=== PATIENT | female | born 1985 | race Caucasian/White ===

== ENCOUNTER 2019-05-09 11:45 | Outpatient (CLI) | payer OTHER, SELFPAY ==
[2019-05-09 13:17] LABS: Vitamin D 25 Hydroxy 73.3 ng/mL
== END 2019-05-09 11:46 | disposition home or self-care (01) ==
PROVIDERS: PCP Family Medicine; Visit Provider Nurse Practitioner
DX: E55.9 Vitamin D deficiency, unspecified (principal)
CPT/HCPCS: 36415; 82306

== ENCOUNTER 2019-05-13 10:46 | Emergency (ER) | payer OTHER, SELFPAY ==
[2019-05-13 10:57] VITALS: BP 105/67; PULSE 105; RESP 20; TEMP 36.4; O2SAT 100
--- NOTE | 2019-05-13 11:36 | ED.URI ---
HPI - URI/Sore Throat General Chief Complaint: Upper Respiratory Infection Stated Complaint: vieira/fever/sore throat/neck pain/back pain Source: patient Mode of arrival: ambulatory Limitations: no limitations History of Present Illness HPI Narrative: 33-year-old female presents to urgent care with complaints of headache, sore throat, right ear popping, body aches, chills and fever since yesterday. 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 Patient has been taking [id number] Aleve and ibuprofen with minimal relief. Patient denies nausea, vomiting, diarrhea, shortness breath or wheezing. Patient denies recent travel. Patient is non-smoker. MD elicited complaint: fever, rhinorrhea and nasal congestion Onset (ago): day(s) (1) Able to tolerate fluids by mouth: Yes Exacerbating factors: nothing Context: sick contacts Related Data Home Medications Medication Instructions Recorded Confirmed bupropion HCl 300 mg 24 hr tablet, 300 mg PO QAM 01/09/19 05/13/19 extended release duloxetine 60 mg capsule,delayed 60 mg PO DAILY 01/09/19 05/13/19 release spironolactone 100 mg tablet 100 mg PO DAILY 01/09/19 05/13/19 progesterone micronized 200 mg PO DAILY 05/13/19 05/13/19 Allergies Allergy/AdvReac Type Severity Reaction Status Date / Time hydrocodone Allergy Mild ITCHY Unverified 04/14/19 10:38 Review of Systems Review of Systems: All systems reviewed & are unremarkable except as noted in HPI and below Constitutional: Constitutional: Reports chills, Denies fatigue, Reports fever(s) and Denies weakness ENT: Denies dysphagia, Denies dizziness, Denies epistaxis and Denies sore throat Cardiovascular: Cardiovascular: Denies chest pain, Denies rapid heart rate, Denies radiating jaw, neck or arm pain and Denies slow heart rate Respiratory: Respiratory: Denies chest congestion, Denies cough, Denies dyspnea and Denies wheezing Gastrointestinal: Gastrointestinal: Denies abdominal pain, Denies constipation, Denies diarrhea, Denies nausea and Denies vomiting Neurologic: Denies vertigo, Denies dizziness, Denies syncope and Denies focal weakness [facility] Family History Family History Sibling Depression Mother Family history of malignant neoplasm of breast in first degree relative Father Family history of malignant melanoma Other Carcinoma of colon Cerebrovascular accident Social History Social History Smoking status: Never smoker Second hand tobacco smoke exposure: No Alcohol intake: never Substance use: never Substance use type: does not use Gender identity (if verbalized by the patient): Female Exam Const: General: healthy appearing, no acute distress and alert Orientation/consciousness: patient oriented x3 Limitations: no limitations HENMT: Ears: external ears normal and TM's normal bilaterally General nose exam: Normal nares present Face and sinus: sinuses nontender Mouth: Yes Normal oral and palatal mucosa present and Yes moist mucous membranes Throat: posterior oropharynx normal and uvula midline Neck: Neck: normal visual inspection, no lymphadenopathy, meningismus present and no lymphadenopathy noted Resp: Effort & Inspection: normal respiratory effort, not labored and not tachypneic Auscultation: clear to auscultation bilaterally Cardio: Rate: regular rate Rhythm: regular rhythm Heart sounds: no murmurs Skin: General skin exam: normal color, no jaundice and no pallor Rashes: no rashes Neuro: General: patient oriented x3 and moves all extremities Extrem: General: normal to inspection Psych: Appearance: grossly normal Mental Status: mental status grossly normal Affect: normal affect Attitude: cooperative Thought content: Yes Normal thought content present Course Vital Signs Vital signs: Vital
== END 2019-05-13 11:44 | disposition home or self-care (01) ==
PROVIDERS: Emergency Provider Nurse Practitioner Family; PCP Family Medicine
DX: J11.1 Influenza due to unidentified influenza virus with other respiratory manifestations (principal); N60.12 Diffuse cystic mastopathy of left breast; N60.11 Diffuse cystic mastopathy of right breast
CPT/HCPCS: 87081; 87804; 87880; 99213; G0463

== ENCOUNTER 2019-07-03 08:03 | Outpatient (CLI) | payer OTHER, SELFPAY ==
--- NOTE | ~2019-07-03 | US_ITS ---
EXAMINATION: US abdomen complete DATE: 07/03/2019 08:38 INDICATION: Left lower abdominal pain. Blood in stool. TECHNIQUE: Multiple grayscale and Doppler ultrasound images of the abdomen were obtained. COMPARISON: CT abdomen and pelvis 08/08/2017 FINDINGS: Abdominal aorta is normal in caliber. Inferior vena cava is normal. The visualized portions of the head, body, and tail of the pancreas are normal. The liver is normal without focal lesion. Th ere is normal flow in main portal vein. The gallbladder is normal in size and contains sludge. No gal lstones or gallbladder wall thickening. There was no sonographic Minor sign. The common duct is norm al and measures 2 mm. The kidneys are normal in size. The spleen is normal in size. Calcifications in the spleen are consistent with old granulomatous disease. IMPRESSION: 1. Gallbladder sludge. No evidence of acute cholecystitis. Reviewed, dictated and finalized at location A.
== END 2019-07-03 08:04 | disposition home or self-care (01) ==
PROVIDERS: PCP Family Medicine; Visit Provider Family Medicine
DX: R10.9 Unspecified abdominal pain (principal); K83.9 Disease of biliary tract, unspecified
CPT/HCPCS: 76700

== ENCOUNTER 2019-10-07 01:25 | Outpatient (CLI) | payer OTHER, SELFPAY ==
[2019-10-07 19:35] LABS: SARS-CoV-2 RNA PCR Negative
== END 2019-10-07 01:26 | disposition home or self-care (01) ==
LOC: ANHCOVIDDT 01:25
PROVIDERS: PCP Family Medicine; Visit Provider Internal Medicine Gastroenterology
DX: Z01.812 Encounter for preprocedural laboratory examination (principal); Z11.59 Encounter for screening for other viral diseases
CPT/HCPCS: 87635; C9803; U0003

== ENCOUNTER 2019-10-09 01:45 | Day surgery (SDC) | payer OTHER, SELFPAY ==
[2019-10-06 10:45] VITALS: BMI 23.1
--- NOTE | 2019-10-09 09:53 | PM.HPGS ---
History of Present Illness History of Present Illness Consent: Risks, benefits, and alternatives have been discussed and questions answered. Patient agrees to proceed with procedure. Chief complaint: change in bowel habits, rectal bleed Narrative: Lucy Hermosillo is a 34 year old W female undergoing colonoscopy secondary to change in bowel habits loose stools mucus and blood in her stools. Patient has a history of infectious colitis. Previous colonoscopy 4 years ago. This was normal. [facility] Social History Social History (Updated 05/21/19 @ 11:07 by Lanie Fairchild) Smoking status: Never smoker Second hand tobacco smoke exposure: No Alcohol intake: never Substance use: never Substance use type: does not use Gender identity (if verbalized by the patient): Female Meds Home Medications and Allergies Home Medications Medication Instructions Recorded Confirmed Type bupropion HCl 300 mg 24 hr tablet, 300 mg PO QAM 01/09/19 10/06/19 History extended release duloxetine 60 mg capsule,delayed 60 mg PO DAILY 01/09/19 10/06/19 History release spironolactone 100 mg tablet 100 mg PO DAILY 01/09/19 10/06/19 History hyoscyamine sulfate 0.125 mg PO PRN PRN 10/06/19 10/06/19 History lactobacillus combination no.8 3,000 mmu cells PO DAILY 10/06/19 10/06/19 History [Adult Probiotic] multivitamin 1 cap PO DAILY 10/06/19 10/06/19 History Allergies Allergy/AdvReac Type Severity Reaction Status Date / Time hydrocodone Allergy Mild ITCHY Verified 10/06/19 10:41 Exam Const: Orientation/consciousness: patient oriented x3 Resp: Auscultation: clear to auscultation bilaterally Cardio: Rate: regular rate Rhythm: regular rhythm Heart sounds: no murmurs GI: GI Palp: Yes Soft to palpation, No Tenderness to palpation present (GI), Yes No hepatosplenomegaly present and No Palpable mass present Auscultation: normal bowel sounds Neuro: General: patient oriented x3 and no focal motor deficits Extrem: General: no pedal edema Assessment and Plan Additional Plan Colonoscopy for evaluation of change in bowel pattern associated with mucus and blood in her stools.
[2019-10-09] MEDS: LACTATED RINGERS 1,000 ML 150 ML IV CONT (10:19)
[2019-10-09 10:21] VITALS: BP 113/68; PULSE 91; RESP 16; TEMP 37.3; O2SAT 100; BMI 21.7
--- NOTE | 2019-10-09 10:41 | WPDANESEPPF ---
Anes - Initial Pre Proc Eval Procedure: Operation Date: 10/09/19 10:30 Proposed Procedures p Colonoscopy - Tha Rahman MD Date/Time: 10/09/19 10:41 Surgeon: Tha Rahman MD Pre Op Diagnosis: change in bowel habits, rectal bleed Patient Data Age: 34 Gender: F Height: 5 ft 6 in Weight: 61 kg Last Vital Signs Temp 99.1 F 10/09/19 10:21 Pulse 91 10/09/19 10:21 Resp 16 10/09/19 10:21 BP 113/68 10/09/19 10:21 Pulse Ox 100 10/09/19 10:21 Allergies Allergy/AdvReac Type Severity Reaction Status Date / Time hydrocodone Allergy Mild ITCHY Verified 10/09/19 10:19 Home Medications Medication Instructions Recorded Confirmed Type bupropion HCl 300 mg 24 hr tablet, 300 mg PO QAM 01/09/19 10/06/19 History extended release duloxetine 60 mg capsule,delayed 60 mg PO DAILY 01/09/19 10/06/19 History release spironolactone 100 mg tablet 100 mg PO DAILY 01/09/19 10/06/19 History hyoscyamine sulfate 0.125 mg PO PRN PRN 10/06/19 10/06/19 History lactobacillus combination no.8 3,000 mmu cells PO DAILY 10/06/19 10/06/19 History [Adult Probiotic] multivitamin 1 cap PO DAILY 10/06/19 10/06/19 History Patient hx anesthesia problems: none Family hx anesthesia problems: none PMFSH Past Medical History Medical History (Updated 10/09/19 @ 10:40 by Morro Llamas MD) ADRIA (generalized anxiety disorder) Hypoglycemia MDD (major depressive disorder), recurrent, in partial remission Social History Social History (Updated 05/21/19 @ 11:07 by Lanie Fairchild) Smoking status: Never smoker Second hand tobacco smoke exposure: No Alcohol intake: never Substance use: never Substance use type: does not use Gender identity (if verbalized by the patient): Female Anes - Eval Final PreProcedure Day of Procedure 10/09/19 10:41 Patient weight: normal Heart: regular rate and rhythm Lungs: clear to auscultation Airway: Mallampati scale class II Neurological: alert and oriented Last oral intake: >/= 8 hours ASA classification: II Emergent: no Anesthetic plan: proceed Anesthesia type and monitoring: general GIVS and standard monitoring Informed Consent: The patient's anesthetic plan and its attendant risks and benefits were discussed with the patient/family/POA. Questions were solicited and answers provided to the satisfaction of the patient/family/POA.
[2019-10-09 11:20] VITALS: BP 81/50; PULSE 78; RESP 16; O2SAT 100
[2019-10-09 11:30] VITALS: BP 80/56; PULSE 78; RESP 15; O2SAT 100
[2019-10-09 11:40] VITALS: BP 87/57; PULSE 79; RESP 16; O2SAT 100
== END 2019-10-09 12:00 | disposition home or self-care (01) ==
PROVIDERS: PCP Family Medicine; Visit Provider Internal Medicine Gastroenterology
PROC: 0DJD8ZZ Inspection of Lower Intestinal Tract, Via Natural or Artificial Opening Endoscopic (ICD-10-PCS; CPT 45378; principal; 2019-10-09 10:30)
DX: K52.9 Noninfective gastroenteritis and colitis, unspecified (principal); F41.1 Generalized anxiety disorder; F33.41 Major depressive disorder, recurrent, in partial remission
CPT/HCPCS: 45380; 87635; 88305; J2704; J7120; U0003

== ENCOUNTER 2020-04-04 18:03 | Emergency (ER) | payer OTHER, SELFPAY ==
[2020-04-04 18:18] VITALS: BP 121/87; PULSE 100; RESP 16; TEMP 36.6; O2SAT 99
--- NOTE | 2020-04-04 18:31 | ED.BACK ---
HPI - Back Pain/Injury General Chief Complaint: Neck Pain/Injury Stated Complaint: neck strain Time Seen by Provider: 04/04/20 18:19 Source: patient and RN notes reviewed Mode of arrival: ambulatory Limitations: no limitations History of Present Illness HPI Narrative: Patient presents today complaining of right neck pain x5 days has been worsening since onset. Denies radiation of the pain, numbness or tingling in the extremities. Denies known injury or trauma. 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 Pain increases with any movement of the neck. Currently rates her pain 08/12 and has been using ibuprofen and heat without relief. MD elicited complaint: other (Neck pain) Related Data Home Medications Medication Instructions Recorded Confirmed bupropion HCl 300 mg 24 hr tablet, 300 mg PO QAM 01/09/19 10/06/19 extended release duloxetine 60 mg capsule,delayed 60 mg PO DAILY 01/09/19 10/06/19 release spironolactone 100 mg tablet 100 mg PO DAILY 01/09/19 10/06/19 norgestimate-ethinyl estradiol tablet 04/04/20 [Tri-Sprintec (28)] Allergies Allergy/AdvReac Type Severity Reaction Status Date / Time hydrocodone Allergy Mild ITCHY Verified 10/09/19 10:19 Review of Systems Review of Systems: Narrative: CONSTITUTIONAL: Denies body aches, fever, chills, or sweats. EYES: Denies visual changes, redness, or discharge. ENT: Denies rhinorrhea, congestion, sore throat, or otalgia. CARDIOVASCULAR: Denies chest pain, palpitations, or edema. RESPIRATORY: Denies cough or dyspnea. GASTROINTESTINAL: Denies abdominal pain, nausea, vomiting, or diarrhea. GENITOURINARY: Denies dysuria or hematuria. SKIN: Denies rash, itching, or wounds. MUSCULOSKELETAL: Denies back pain, joint pain, or myalgia.+ Neck pain NEUROLOGIC: Denies headache, numbness, tingling, or weakness. PSYCH: Denies depression or anxiety. [facility] Past Medical History Medical History (Updated 04/04/20 @ 18:37 by Toshia Reynoso, FUNERAL DIRECTOR AND EMBALMER, BC) ADRIA (generalized anxiety disorder) History of miscarriage Hypoglycemia MDD (major depressive disorder), recurrent, in partial remission Family History Family History Sibling Depression Mother Family history of malignant neoplasm of breast in first degree relative Father Family history of malignant melanoma Other Carcinoma of colon Cerebrovascular accident Social History Social History (Updated 05/21/19 @ 11:07 by Lanie Fairchild) Smoking status: Never smoker Second hand tobacco smoke exposure: No Alcohol intake: never Substance use: never Substance use type: does not use Gender identity (if verbalized by the patient): Female Comments At time of signature, I have reviewed and agree with nursing past medical, surgical, social and family history unless otherwise noted. Please see nursing chart for further information. There is no relevant family history pertinent to the presenting complaint Exam Narrative: Exam Narrative: GENERAL: Well-appearing, well-nourished, and in no acute distress. HEAD: Normocephalic, atraumatic. EYES: EOMI. No redness or drainage. Conjunctivae normal. ENT: Mucous membranes pink and moist. NECK: Tenderness to right upper paraspinal muscles. No spinal tenderness. Pain with any movement of the neck, worst pain with leftward gaze and left ear to shoulder. Sensation intact. Capillary refill normal. Radial pulses normal bilaterally. Handgrips equal and strong. Biceps equal and strong against resistance. CHEST: No respiratory distress. EXTREMITIES: Normal range of motion. No edema. SKIN: Warm, dry, no rash. Capillary refill normal. Normal skin turgor. NEURO: No focal deficits. Alert and oriented x3. Gait steady. PSYCH: Normal affect. No signs of depression or anxiety. Course Vital Signs Vital signs: Vital Signs T
[2020-04-04 18:39] VITALS: BP 121/87; PULSE 100; RESP 16; TEMP 36.6; O2SAT 99
== END 2020-04-04 18:41 | disposition home or self-care (01) ==
PROVIDERS: Emergency Provider Nurse Practitioner; PCP Family Medicine
DX: S16.1XXA Strain of muscle, fascia and tendon at neck level, initial encounter (principal); X58.XXXA Exposure to other specified factors, initial encounter; F41.9 Anxiety disorder, unspecified; F32.9 Major depressive disorder, single episode, unspecified
CPT/HCPCS: 99213; G0463

== ENCOUNTER 2020-07-05 16:28 | Emergency (ER) | payer OTHER, SELFPAY ==
[2020-07-05 16:35] VITALS: BP 102/68; PULSE 92; RESP 16; TEMP 36.9; O2SAT 99
--- NOTE | 2020-07-05 16:53 | ED.URI ---
HPI - URI/Sore Throat General Chief Complaint: Upper Respiratory Infection Stated Complaint: Sore Throat Time Seen by Provider: 07/05/20 16:53 Source: patient Mode of arrival: ambulatory Limitations: no limitations History of Present Illness HPI Narrative: Lucy Hermosillo is a 35 yo female with a PMH of depression, acne, [facility] with scratchy throat, muscle aches that started 3 days ago. Complains of increasing malaise no appetite; denies fever, no nausea vomiting diarrhea, no shortness of breath History of recurrent strep with no fever been general similar presentation. 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 EYES: Denies visual changes, redness, discharge. ENT: Denies rhinorrhea, congestion, has sore throat, otalgia. Has myalgias-malaise CARDIOVASCULAR: Denies chest pain, palpitations, edema. RESPIRATORY: Denies dyspnea, wheezing, cough GASTROINTESTINAL: Denies abdominal pain, nausea, vomiting, diarrhea. GENITOURINARY: Denies dysuria, hematuria, abnormal discharge SKIN: Denies rash or itching. NEUROLOGIC: Denies numbness, or focal weakness. PSYCHIATRIC: Denies anxiety or depression. [facility] Past Medical History Medical History ADRIA (generalized anxiety disorder) History of miscarriage Hypoglycemia MDD (major depressive disorder), recurrent, in partial remission Family History Family History Sibling Depression Mother Family history of malignant neoplasm of breast in first degree relative Father Family history of malignant melanoma Other Carcinoma of colon Cerebrovascular accident Social History Social History Smoking status: Never smoker Second hand tobacco smoke exposure: No Alcohol intake: never Substance use: never Substance use type: does not use Gender identity (if verbalized by the patient): Female Comments At time of signature, I agree with nursing past medical, surgical, social and family history. There is no relevant family history pertinent to the presenting complaint. Exam Narrative: Exam Narrative: GENERAL: This is a well-nourished, well-developed patient, in mild distress. Patient complaining of malaise HEAD: normocephalic, atraumatic. EYES: PERRL. Sclera clear/white. Vision is grossly intact. EARS: External ears normal, Hearing grossly intact. NOSE: External nose normal without nasal discharge, nares without redness, no rhinorrhea. THROAT: Mucous membranes moist, posterior pharynx erythema NECK: Neck supple, non-tender CARDIOVASCULAR: Regular rate and rhythm without murmurs, gallops, or rubs. RESPIRATORY: Clear to auscultation. Breath sounds equal bilaterally. No wheezes, rales, or rhonchi. GASTROINTESTINAL: Abdomen soft, SKIN: warm, intact with no suspicious lesions or rash, good texture and turgor. NEURO: awake, alert, and oriented to person, place and time. There were no obvious focal neurologic abnormalities. Steady gait EXTREMITIES: Normal range of motion. BACK: Nontender without deformity Course Course Emergency Course: [facility] with complaints of scratchy throat x3 days and malaise that is increasing; has been afebrile but is not wanting to eat Strep test negative Rapid covid negative Started on penicillin and told to rest for the next 2 to 3 days push fluids-discussed infection control since works with [employer]
== END 2020-07-05 17:25 | disposition home or self-care (01) ==
PROVIDERS: Emergency Provider Nurse Practitioner; PCP Family Medicine
DX: J02.9 Acute pharyngitis, unspecified (principal); Z20.822 Contact with and (suspected) exposure to COVID-19
CPT/HCPCS: 87081; 87426; 87880; 99213; C9803; G0463

== ENCOUNTER 2020-10-12 13:25 | Outpatient (CLI) | payer OTHER, SELFPAY ==
--- NOTE | ~2020-10-12 | MMUS_ITS ---
EXAMINATION: MM diagnostic quynh BI w bruce, US breast BI complete HISTORY: Tingling of the nipples for 3 weeks TECHNIQUE: Additional 3-D tomosynthesis images of the breasts were performed and synthetic 2-D images were generated. CAD analysis was submitted and interpreted. High resolution complete bilateral breas t ultrasound was performed. COMPARISON: 05/19/2014 BREAST PARENCHYMAL COMPOSITION: The breasts are extremely dense, which lowers the sensitivity of mamm ography. FINDINGS: MAMMOGRAPHIC FINDINGS: There is a focal asymmetry laterally in the right breast on CC view, not confirmed on MLO or mediolat eral views. No mammographic evidence for malignancy in the left breast. ULTRASOUND: Right breast ultrasound: At 11:00, 6 cm from the nipple, there is a 7 mm intramammary lymph node. No suspicious masses to suggest malignancy. Left breast ultrasound: At 9:00, 2 cm from the nipple, there is an oval hypoechoic mass measuring 1 c m maximum dimension, likely a complicated cyst or benign intramammary lymph node. IMPRESSION: 1. Probable benign left breast mass at 9:00, 2 cm from the nipple. No evidence for malignancy in the right breast. 2. Recommend 6 month follow-up Limited left breast ultrasound. BI-RADS category 3, probably benign findings. Reviewed, dictated and finalized at location A. IMPRESSION: 1. Probable benign left breast mass at 9:00, 2 cm from the nipple. No evidence for malignancy in the right breast. 2. Recommend 6 month follow-up Limited left breast ultrasound. BI-RADS category 3, probably benign findings.
== END 2020-10-12 13:26 | disposition home or self-care (01) ==
PROVIDERS: PCP Family Medicine; Visit Provider Nurse Practitioner
DX: N64.4 Mastodynia (principal); R92.8 Other abnormal and inconclusive findings on diagnostic imaging of breast
CPT/HCPCS: 76641; 77062; 77066; G0279

== ENCOUNTER 2020-10-26 13:24 | Outpatient (CLI) | payer OTHER, SELFPAY ==
--- NOTE | ~2020-10-26 | XR_ITS ---
XR thoracic spine 2V DATE: 10/26/2020 13:50 INDICATION: Neck and back pain for 2 months TECHNIQUE: AP, lateral, swimmer views COMPARISON: None FINDINGS: This is an incomplete examination, not including lower thoracic vertebral body on the later al view. There is mild upper thoracic levoscoliosis. There is minimal dextro scoliosis of the lower thoracic s pine. No fracture or dislocation or bone destruction. The thoracic pedicles are intact. IMPRESSION: Incomplete examination. The lower thoracic spine is not included on the lateral view. Reviewed, dictated and finalized at location A.
--- NOTE | ~2020-10-26 | XR_ITS ---
XR_[id number]_CR DATE: 10/26/2020 13:51 INDICATION: Neck pain TECHNIQUE: AP, open-mouth, lateral views COMPARISON: None FINDINGS: There is mild dextro scoliosis of the cervical and upper thoracic spine. C1 and C2 are norm ally aligned and the odontoid process is intact. No fracture or dislocation or locked facet or prever tebral soft tissue swelling. Cervical interspaces appear relatively well preserved with exception of slight loss of height and anterior spurring at C5-6. IMPRESSION: Mild dextro scoliosis Mild degenerative disc disease at C5-6 Reviewed, dictated and finalized at Location [facility]. Reviewed, dictated and finalized at location A.
== END 2020-10-26 13:25 | disposition home or self-care (01) ==
LOC: ANHIMG 13:30
PROVIDERS: PCP Family Medicine; Visit Provider Physician Assistant
DX: K58.2 Mixed irritable bowel syndrome (principal); M41.82 Other forms of scoliosis, cervical region; M50.322 Other cervical disc degeneration at C5-C6 level
CPT/HCPCS: 72040; 72070

== ENCOUNTER 2020-11-01 19:20 | Emergency (ER) | payer OTHER, SELFPAY ==
[2020-11-01 19:29] VITALS: BP 109/72; PULSE 74; RESP 18; TEMP 36.2; O2SAT 100
--- NOTE | 2020-11-01 19:38 | ED.URI ---
HPI - URI/Sore Throat General Chief Complaint: Upper Respiratory Infection Stated Complaint: Shortness of breathe Time Seen by Provider: 11/01/20 19:38 Source: patient Mode of arrival: ambulatory Limitations: no limitations History of Present Illness HPI Narrative: Lucy Toure is a 35 yo female with depression anxiety and ulcerative colitis, she was trying to talk over noise at a volleyball game and the mask and developed a choking cough; became anxietious and became shortness of breath because she thought she could not catch her breath . 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 trying to keep masks on and she wants to make sure that she is also negative-no symptoms Related Data Home Medications Medication Instructions Recorded Confirmed duloxetine 60 mg capsule,delayed 60 mg PO DAILY 01/09/19 10/21/20 release spironolactone 100 mg tablet 100 mg PO DAILY 01/09/19 10/21/20 hyoscyamine sulfate 0.125 mg tablet 0.125 mg PO QID 10/28/20 cyclobenzaprine 10 mg PO HS PRN 11/01/20 11/01/20 Allergies Allergy/AdvReac Type Severity Reaction Status Date / Time hydrocodone Allergy Mild ITCHY Verified 11/01/20 20:05 Review of Systems Review of Systems: CONSTITUTIONAL: Denies fever, chills, sweats. Bout of coughing, shortness of breath EYES: Denies visual changes, redness, discharge. ENT: Denies rhinorrhea, congestion, sore throat, otalgia. CARDIOVASCULAR: Denies chest pain, palpitations, edema. RESPIRATORY: Denies dyspnea, wheezing, had cough GASTROINTESTINAL: Denies abdominal pain, nausea, vomiting, diarrhea. GENITOURINARY: Denies dysuria, hematuria, abnormal discharge SKIN: Denies rash or itching. NEUROLOGIC: Denies numbness, or focal weakness. PSYCHIATRIC: Denies anxiety or depression. [facility] Past Medical History Medical History ADRIA (generalized anxiety disorder) History of miscarriage Hypoglycemia MDD (major depressive disorder), recurrent, in partial remission Family History Family History Sibling Depression Mother Family history of malignant neoplasm of breast in first degree relative Father Family history of malignant melanoma Other Carcinoma of colon Cerebrovascular accident Social History Social History Second hand tobacco smoke exposure: No Alcohol intake: never Substance use: never Substance use type: does not use Gender identity (if verbalized by the patient): Female Comments At time of signature, I agree with nursing past medical, surgical, social and family history. There is no relevant family history pertinent to the presenting complaint. Exam Narrative: GENERAL: This is a well-nourished, well-developed patient, in mild distress. HEAD: normocephalic, atraumatic. EYES:Sclera clear/white. Vision is grossly intact. EARS: External ears normal, auditory canals clear and without drainage, TMs normal without perforation. Hearing grossly intact. NOSE: External nose normal without nasal discharge, nares without redness, no rhinorrhea. THROAT: Mucous membranes moist, posterior pharynx pink no exudate NECK: Neck supple, non-tender CARDIOVASCULAR: Regular rate and rhythm without murmurs, gallops, or rubs. RESPIRATORY: Clear to auscultation. Breath sounds equal bilaterally. No wheezes, rales, or rhonchi. GASTROINTESTINAL: Abdomen soft, non-tender, SKIN: warm, intact with no suspicious lesions or rash, good texture and turgor. NEURO: awake, alert, and oriented to person, place and time. There were no obvious focal neurologic abnorm
== END 2020-11-01 20:08 | disposition home or self-care (01) ==
PROVIDERS: Emergency Provider Nurse Practitioner; PCP Family Medicine
DX: J98.01 Acute bronchospasm (principal); Z20.822 Contact with and (suspected) exposure to COVID-19
CPT/HCPCS: 87426; 99213; C9803; G0463

== ENCOUNTER 2021-02-28 10:53 | Outpatient (CLI) | payer OTHER, SELFPAY ==
[2021-02-28 11:19] LABS: Hematocrit 39.6 % (37.0-47.0); Hemoglobin 13.7 g/dL (12.0-15.0); Mean Corpuscular HGB Conc 34.6 g/dl (32-36); Mean Corpuscular Volume 89.6 fl (80-100); Mean Platelet Volume 9.2 fl (7.4-10.4); Platelet Count Result 265 k/mm3 (150-375); Red Blood Count 4.42 M/mm3 (4.2-5.4); Red Cell Distribution Width 12.1 % (11.5-14.5); White Blood Count 5.2 K/mm3 (4.5-10.0)
[2021-02-28 11:30] LABS: Alanine Aminotransferase 14 U/L (4-35); Albumin Level 4.3 g/dL (3.5-5.1); Alkaline Phosphatase 60 U/L (38-126); Anion Gap 7 mmol/L (8-16); Aspartate Amino Transferase 22 U/L (14-36); Bilirubin,Total 0.5 mg/dL (0.2-1.3); Blood Urea Nitrogen 18 mg/dL (7-17); CRP < 0.5 mg/dL (<1.0); Calcium 9.4 mg/dL (8.4-10.2); Carbon Dioxide 28 mmol/L (22-30); Chloride 104 mmol/L (98-107); Estimated Glomerular Filt Rate > 60; Glucose 89 mg/dL (65-110); Potassium 3.9 mmol/L (3.4-5.0); Sodium 139 mmol/L (137-145)
[2021-02-28 13:07] LABS: Erythrocyte Sedimentation Rate 7 mm/hr (0-20)
[2021-03-02 18:35] LABS: Tissue Transglutaminase IgA Ab <1.0 U/mL (<15.0)
[2021-03-03 08:39] LABS: Tissue Transglutaminase IgG Ab <1.0 U/mL (<15.0)
== END 2021-02-28 10:54 | disposition home or self-care (01) ==
PROVIDERS: PCP Family Medicine; Visit Provider Internal Medicine Gastroenterology
DX: K52.9 Noninfective gastroenteritis and colitis, unspecified (principal); R14.0 Abdominal distension (gaseous)
CPT/HCPCS: 36415; 80053; 83516; 85027; 85652; 86140

== ENCOUNTER 2021-05-03 11:26 | Outpatient (CLI) | payer OTHER, SELFPAY ==
--- NOTE | ~2021-05-03 | US_ITS ---
EXAMINATION: US breast LT limited HISTORY: Six-month follow-up for probably benign left breast TECHNIQUE: Limited left breast ultrasound is performed. FINDINGS: There is an 11 mm x 5 mm described, parallel, hypoechoic mass at the 9:00 location 2 cm fro m nipple with no posterior features or internal vascularity. The mass appears stable since the prior examination. IMPRESSION: Probably benign left breast mass. Follow-up targeted left breast ultrasound in six months is recommen ded. BI-RADS category 3, probably benign findings. Reviewed, dictated and finalized at location A. [employer] MANAGER IMPRESSION: Probably benign left breast mass. Follow-up targeted left breast ultrasound in six months is recommended. BI-RADS category 3, probably benign findings.
== END 2021-05-03 11:27 | disposition home or self-care (01) ==
LOC: ANHIMG 11:30
PROVIDERS: PCP Family Medicine; Visit Provider Obstetrics & Gynecology Gynecology
DX: R92.8 Other abnormal and inconclusive findings on diagnostic imaging of breast (principal)
CPT/HCPCS: 76642

== ENCOUNTER 2021-06-07 15:47 | Outpatient (CLI) | payer OTHER, SELFPAY ==
[2021-06-07 16:24] LABS: Hematocrit 38.7 % (37.0-47.0); Hemoglobin 13.2 g/dL (12.0-15.0); Mean Corpuscular HGB Conc 34.1 g/dl (32-36); Mean Corpuscular Hemoglobin 31.1 pg (26-34); Mean Corpuscular Volume 91.3 fl (80-100); Mean Platelet Volume 9.8 fl (7.4-10.4); Platelet Count Result 243 k/mm3 (150-375); Red Blood Count 4.24 M/mm3 (4.2-5.4); Red Cell Distribution Width 12.6 % (11.5-14.5); White Blood Count 6.2 K/mm3 (4.5-10.0)
[2021-06-07 16:32] LABS: Hemoglobin A1C 4.7 % (<5.7)
[2021-06-07 16:59] LABS: Thyroid Stimulating Hormone 0.832 uIU/mL (0.465-4.680); Vitamin D 25 Hydroxy 83.5 ng/mL
[2021-06-09 09:31] LABS: Free T4 Free Thyroxine 0.84 ng/mL (0.78-2.19)
== END 2021-06-07 15:48 | disposition home or self-care (01) ==
LOC: ANHLAB 15:50
PROVIDERS: PCP Family Medicine; Visit Provider Nurse Practitioner
DX: R53.83 Other fatigue (principal)
CPT/HCPCS: 36415; 82306; 82607; 83036; 84436; 84439; 84443; 85027

== ENCOUNTER 2021-07-09 11:06 | Emergency (ER) | payer OTHER, SELFPAY ==
[2021-07-09 11:48] VITALS: BP 107/74; PULSE 87; RESP 18; TEMP 36.6; O2SAT 100
--- NOTE | 2021-07-09 12:23 | ED.EYEPROB ---
HPI - Eye Problem General Chief complaint: Eye Problems Stated complaint: possible pink eye in right eye Time Seen by Provider: 07/09/21 12:10 Source: patient Mode of arrival: ambulatory Limitations: no limitations History of Present Illness HPI Narrative: Lucy Hermosillo is a 36 yo female with IBS/UC, depression, [facility] with right eye swelling and tearing and discharge in corner of eye this morning. 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 She wore her glasses yesterday but this morning she had discharge that she decided to come in Related Data Home Medications Medication Instructions Recorded Confirmed duloxetine 60 mg capsule,delayed 60 mg PO DAILY 01/09/19 07/09/21 release spironolactone 100 mg tablet 100 mg PO DAILY 01/09/19 07/09/21 norethindrone-e.estradiol-iron [Lo 1 tablet PO DAILY 07/09/21 07/09/21 Loestrin Fe] Allergies Allergy/AdvReac Type Severity Reaction Status Date / Time hydrocodone Allergy Mild ITCHY Verified 07/09/21 11:57 Review of Systems Review of Systems: CONSTITUTIONAL: Denies fever, chills, sweats. EYES: Denies visual changes, right eye redness with discharge. ENT: Denies rhinorrhea, congestion, sore throat, otalgia. CARDIOVASCULAR: Denies chest pain, palpitations, edema. RESPIRATORY: Denies dyspnea, wheezing, cough GASTROINTESTINAL: Denies abdominal pain, nausea, vomiting, diarrhea. GENITOURINARY: Denies dysuria, hematuria, abnormal discharge SKIN: Denies rash or itching. NEUROLOGIC: Denies numbness, or focal weakness. PSYCHIATRIC: Denies anxiety or depression. [facility] Past Medical History Medical History Bloating ADRIA (generalized anxiety disorder) History of miscarriage Hypoglycemia Irritable bowel syndrome with both constipation and diarrhea MDD (major depressive disorder), recurrent, in partial remission Family History Family History Sibling Depression Mother Family history of malignant neoplasm of breast in first degree relative Father Family history of malignant melanoma Other Carcinoma of colon Cerebrovascular accident Social History Social History Second hand tobacco smoke exposure: No Alcohol intake: never Substance use: never Substance use type: does not use Gender identity (if verbalized by the patient): Female Comments At time of signature, I agree with nursing past medical, surgical, social and family history. There is no relevant family history pertinent to the presenting complaint. Exam Narrative: GENERAL: This is a well-nourished, well-developed patient, in mild distress. HEAD: normocephalic, atraumatic. EYES: Sclera clear/injected on right. Vision is grossly intact. Right eye is mildly edematous particularly upper lid and watery EARS: External ears normal, auditory canals clear and without drainage, TMs normal without perforation. Hearing grossly intact. NOSE: External nose normal without nasal discharge, nares without redness, no rhinorrhea. THROAT: Mucous membranes moist, posterior pharynx mild erythema NECK: Neck supple, non-tender CARDIOVASCULAR: Regular rate and rhythm without murmurs, gallops, or rubs. RESPIRATORY: Clear to auscultation. Breath sounds equal bilaterally. No wheezes, rales, or rhonchi. GASTROINTESTINAL: Abdomen soft, SKIN: warm, intact with no suspicious lesions or rash, good texture and turgor. NEURO: awake, alert, and oriented to person, place and time. There were no obvious focal neurologic abnormalities. Steady gait EXTREMITIES: Normal range of motion. BACK: Nontender without deformity Course Course Emergency Course: Patient comes with right thigh swelling and watery with discharge this morning that initially started on Started on tobramycin e
== END 2021-07-09 12:31 | disposition home or self-care (01) ==
PROVIDERS: Emergency Provider Nurse Practitioner; PCP Family Medicine
DX: H10.9 Unspecified conjunctivitis (principal)
CPT/HCPCS: 99213; G0463

== ENCOUNTER 2021-10-15 08:14 | Emergency (ER) | payer OTHER, SELFPAY ==
--- NOTE | 2021-10-15 08:31 | ED.SKABFB ---
HPI - Skin/Abscess/Foreign Bdy General Chief complaint: Skin/Abscess/Foreign Body Stated complaint: Tick bites Time Seen by Provider: 10/15/21 08:40 History of Present Illness HPI narrative: Lucy Hermosillo is a 36 yo female with UC, anxiety, acne, who comes with multiple bites of her legs and abdomen. She [place] with her family and has taken doxycycline last month for an actual tick bite with a bull's-eye rash. These multiple bites are all very pruritic and cover her feet legs and lower abdomen Related Data Home Medications Medication Instructions Recorded Confirmed duloxetine 60 mg capsule,delayed 60 mg PO DAILY 01/09/19 10/15/21 release (Cymbalta) spironolactone 100 mg tablet 100 mg PO DAILY 01/09/19 10/15/21 Allergies Allergy/AdvReac Type Severity Reaction Status Date / Time hydrocodone Allergy Mild ITCHY Verified 10/15/21 08:26 Review of Systems Review of Systems: CONSTITUTIONAL: Denies fever, chills, sweats. EYES: Denies visual changes, redness, discharge. ENT: Denies rhinorrhea, congestion, sore throat, otalgia. CARDIOVASCULAR: Denies chest pain, palpitations, edema. RESPIRATORY: Denies dyspnea, wheezing, cough GASTROINTESTINAL: Denies abdominal pain, nausea, vomiting, diarrhea. GENITOURINARY: Denies dysuria, hematuria, abnormal discharge SKIN: Pruritic insect bites of the feet legs and lower abdomen and back NEUROLOGIC: Denies numbness, or focal weakness. PSYCHIATRIC: Denies anxiety or depression. [facility] Past Medical History Medical History Bloating ADRIA (generalized anxiety disorder) History of miscarriage Hypoglycemia Irritable bowel syndrome with both constipation and diarrhea MDD (major depressive disorder), recurrent, in partial remission Family History Family History Sibling Depression Mother Family history of malignant neoplasm of breast in first degree relative Father Family history of malignant melanoma Other Carcinoma of colon Cerebrovascular accident Social History Social History Second hand tobacco smoke exposure: No Alcohol intake: never Substance use: never Substance use type: does not use Gender identity (if verbalized by the patient): Female Exam Narrative: GENERAL: This is a well-nourished, well-developed patient, in mild distress. HEAD: normocephalic, atraumatic. EYES: Sclera clear/white. Vision is grossly intact. EARS: External ears normal, . Hearing grossly intact. NOSE: External nose normal without nasal discharge, nares without redness, no rhinorrhea. THROAT: Mucous membranes moist, NECK: Neck supple, CARDIOVASCULAR: Regular rate and rhythm without murmurs, gallops, or rubs. RESPIRATORY: Clear to auscultation. Breath sounds equal bilaterally. No wheezes, rales, or rhonchi. GASTROINTESTINAL: Not performed SKIN: warm, intact with pruritic lesions on feet legs lower abdomen lower back NEURO: awake, alert, and oriented to person, place and time. There were no obvious focal neurologic abnormalities. Steady gait EXTREMITIES: Normal range of motion. BACK: Nontender without deformity Course Course Emergency Course: Patient comes with bites from outdoor activity a week ago that is very pruritic Prednisone 60 mg here now Started on taper pack, Pepcid, Benadryl Level of Care: Express Care Visit Vital Signs Vital signs: Vital Signs Temperature 97.5 F L 10/15/21 08:33 Pulse Rate 86 10/15/21 08:33 Respiratory Rate 18 10/15/21 08:33 Blood Pressure 103/75 10/15/21 08:33 Pulse Oximetry 100 10/15/21 08:33 Oxygen Delivery Room Air 10/15/21 08:33 Temperature 97.5 F L 10/15/21 08:33 Pulse Rate 86 10/15/21 08:33 Respiratory Rate 18 10/15/21 08:33 Blood Pressure 103/75 10/15/21 08:33 Pulse Oximetry 100 10/15/21 08:33 Oxygen Delivery
[2021-10-15 08:33] VITALS: BP 103/75; PULSE 86; RESP 18; TEMP 36.4; O2SAT 100
[2021-10-15] MEDS: predniSONE 20 MG TABLET 60 MG PO (08:56)
== END 2021-10-15 09:15 | disposition home or self-care (01) ==
PROVIDERS: Emergency Provider Nurse Practitioner; PCP Family Medicine
DX: S90.862A Insect bite (nonvenomous), left foot, initial encounter (principal); S90.861A Insect bite (nonvenomous), right foot, initial encounter; S80.862A Insect bite (nonvenomous), left lower leg, initial encounter; S80.861A Insect bite (nonvenomous), right lower leg, initial encounter; S30.861A Insect bite (nonvenomous) of abdominal wall, initial encounter; S20.469A Insect bite (nonvenomous) of unspecified back wall of thorax, initial encounter; W57.XXXA Bitten or stung by nonvenomous insect and other nonvenomous arthropods, initial encounter; F41.1 Generalized anxiety disorder; F33.8 Other recurrent depressive disorders
CPT/HCPCS: 99213; G0463; J7512

== ENCOUNTER 2021-11-04 12:43 | Outpatient (CLI) | payer OTHER, SELFPAY ==
--- NOTE | ~2021-11-04 | US_ITS ---
EXAMINATION: US breast LT limited HISTORY: Six-month follow-up for probably benign left breast masses TECHNIQUE: Limited left breast ultrasound was performed. COMPARISON: 10/12/2020, 05/03/2021 FINDINGS: There is a 9 mm x 4 mm oval hypoechoic mass with no posterior features or internal vascular ity at the 9:00 location 2 cm from the nipple which appears to be a confluence up to adjacent previou sly described masses. There has been no suspicious interval change. IMPRESSION: Stable, probably benign left breast mass. Given one year of interval stability, follow-up targeted le ft breast ultrasound in 12 months is recommended. Of note, patient is due for bilateral screening quynh mography. BI-RADS category 3, probably benign findings. Reviewed, dictated and finalized at location A. IMPRESSION: Stable, probably benign left breast mass. Given one year of interval stability, follow-up targeted left breast ultrasound in 12 months is recommended. Of note , patient is due for bilateral screening mammography. BI-RADS category 3, probably benign findings.
== END 2021-11-04 12:44 | disposition home or self-care (01) ==
PROVIDERS: PCP Family Medicine; Visit Provider Obstetrics & Gynecology Gynecology
DX: N63.20 Unspecified lump in the left breast, unspecified quadrant (principal); R92.8 Other abnormal and inconclusive findings on diagnostic imaging of breast
CPT/HCPCS: 76642

== ENCOUNTER → 2022-01-24 07:44 | Outpatient (CLI) | payer OTHER, SELFPAY ==
--- NOTE | ~2022-01-24 | MM_ITS ---
EXAMINATION: MM screening quynh BI w bruce HISTORY: Screening mammogram TECHNIQUE: Craniocaudal and mediolateral oblique 3-D tomosynthesis images were obtained and synthetic 2-D images were generated. CAD analysis was submitted and interpreted. COMPARISON: 11/04/2021, 05/03/2021 limited left breast ultrasound 10/12/2020 bilateral diagnostic mammography and complete bilateral breast ultrasound 04/24/2015 bilateral complete ultrasound 05/19/2014 bilateral screening mammogram BREAST PARENCHYMAL COMPOSITION: The breasts are extremely dense, which lowers the sensitivity of mamm ography. FINDINGS: There is no evidence of suspicious mass, calcification, or architectural distortion to sugg est malignancy in either breast. There has been no suspicious interval change. IMPRESSION: 1. No mammographic evidence of malignancy. 2. Recommend routine screening mammography in one year. BI-RADS Category 1: Negative Reviewed, dictated and finalized at location A. L STENOGRAPHER
== END ==
PROVIDERS: PCP Family Medicine; Visit Provider Obstetrics & Gynecology Gynecology
DX: Z12.31 Encounter for screening mammogram for malignant neoplasm of breast (principal)
CPT/HCPCS: 77063; 77067

== ENCOUNTER 2022-03-07 16:22 | Outpatient (CLI) | payer OTHER, SELFPAY ==
[2022-03-07 18:19] LABS: Beta HCG Quantitative < 2.39 mIU/ML
[2022-03-07 18:40] LABS: Free T4 Free Thyroxine 1.02 ng/mL (0.78-2.19)
[2022-03-12 12:15] LABS: Prolactin 12.6 ng/mL (***)
== END 2022-03-07 16:23 | disposition home or self-care (01) ==
PROVIDERS: PCP Family Medicine; Visit Provider Obstetrics & Gynecology Gynecology
DX: N91.2 Amenorrhea, unspecified (principal)
CPT/HCPCS: 36415; 84146; 84439; 84443; 84702

== ENCOUNTER 2022-04-11 09:42 | Outpatient (CLI) | payer OTHER, SELFPAY ==
[2022-04-11 10:03] LABS: Basophils Absolute Auto 0.1 K/mm3 (0.0-0.1); Basophils Percent Auto 0.8 % (0.2-1.2); Eosinophils Absolute Auto 0.3 K/mm3 (0-0.3); Eosinophils Percent Auto 4.2 % (0-4.4); Hematocrit 40.5 % (37.0-47.0); Immature Granulocyte Absolute 0.03 K/mm3 (0.00-0.031); Immature Granulocyte Percent A 0.5 % (0-0.5); Lymphocytes Absolute Auto 1.59 K/mm3 (0.9-3.2); Lymphocytes Percent Auto 24.1 % (18.3-44.2); Mean Corpuscular HGB Conc 34.6 g/dl (32-36); Mean Corpuscular Hemoglobin 30.8 pg (26-34); Mean Platelet Volume 9.3 fl (7.4-10.4); Monocytes Absolute Auto 0.6 K/mm3 (0.1-0.6); Monocytes Percent Auto 8.9 % (2.6-8.5); Neutrophils Absolute Auto 4.1 K/mm3 (1.3-6.7); Neutrophils Percent Auto 61.5 % (45.5-73.1); Platelet Count Result 241 k/mm3 (150-375); Red Blood Count 4.55 M/mm3 (4.2-5.4); Red Cell Distribution Width 12.2 % (11.5-14.5); White Blood Count 6.6 K/mm3 (4.5-10.0)
[2022-04-11 10:09] LABS: Appearance Urine Clear (Clear); Bilirubin Urine Negative (Negative); Blood Urine 2+ (Negative); Color Urine Yellow (Yellow); Glucose Urine UA Negative (Negative); Ketones Urine Trace mg/dL (Negative); Leukocyte Esterase Ur Negative LEU/UL (NEGATIVE); Nitrate Urine Negative (Negative); Protein Urine 1+ mg/dL (Negative); Specific Grav Ur 1.025 (1.001-1.035); Urobilinogen Urine 0.2 mg/dL (<2.0); pH Urine 5.5 (5.0-9.0)
[2022-04-11 10:16] LABS: Add Urine Microscopic? YES; Bacteria Urine Trace /hpf; Mucus Urine Few /lpf; RBC Urine >75 /hpf (0-2); Squamous Epithelial Cell Urine Few /hpf (Few)
[2022-04-11 10:18] LABS: Alanine Aminotransferase 16 U/L (6-35); Albumin Level 4.3 g/dL (3.5-5.1); Alkaline Phosphatase 58 U/L (38-126); Anion Gap 3 mmol/L (8-16); Aspartate Amino Transferase 26 U/L (14-36); Bilirubin,Total 0.7 mg/dL (0.2-1.3); Blood Urea Nitrogen 21 mg/dL (7-17); Calcium 8.8 mg/dL (8.4-10.2); Carbon Dioxide 31 mmol/L (22-30); Chloride 105 mmol/L (98-107); Cholesterol 154 mg/dL (0-200); Estimated Glomerular Filt Rate > 60; Glucose 78 mg/dL (65-110); HDL Direct 57 mg/dL; Potassium 3.8 mmol/L (3.4-5.0); Sodium 139 mmol/L (137-145); Triglycerides 58 mg/dL (<150)
[2022-04-11 10:24] LABS: Iron 138 ug/dL (37-170)
[2022-04-11 10:29] LABS: LDL Cholesterol Direct 61 mg/dL
[2022-04-11 10:35] LABS: Percent Iron Saturation 37 % (20-50)
[2022-04-11 10:59] LABS: Vitamin D 25 Hydroxy 79.5 ng/mL
[2022-04-11 11:22] LABS: Folic Acid > 20.0 ng/mL (2.76->20)
== END 2022-04-11 09:43 | disposition home or self-care (01) ==
LOC: ANHLAB 09:44
PROVIDERS: PCP Family Medicine; Visit Provider Physician Assistant
DX: Z00.00 Encounter for general adult medical examination without abnormal findings (principal); D64.9 Anemia, unspecified; E55.9 Vitamin D deficiency, unspecified; R53.83 Other fatigue
CPT/HCPCS: 36415; 80053; 80061; 81001; 82306; 82607; 82728; 82746; 83540; 83550; 84443; 85025

== ENCOUNTER 2022-08-04 12:33 | Outpatient (CLI) | payer OTHER, SELFPAY ==
[2022-08-04 11:20] LABS: Hematocrit 42.7 % (37.0-47.0); Hemoglobin 14.6 g/dL (12.0-15.0); Mean Corpuscular HGB Conc 34.2 g/dl (32-36); Mean Corpuscular Hemoglobin 30.8 pg (26-34); Mean Corpuscular Volume 90.1 fl (80-100); Mean Platelet Volume 9.7 fl (7.4-10.4); Platelet Count Result 266 k/mm3 (150-375); Red Blood Count 4.74 M/mm3 (4.2-5.4); Red Cell Distribution Width 11.9 % (11.5-14.5); White Blood Count 5.8 K/mm3 (4.5-10.0)
[2022-08-04 11:40] LABS: Alanine Aminotransferase 19 U/L (6-35); Albumin Level 4.5 g/dL (3.5-5.1); Alkaline Phosphatase 58 U/L (38-126); Anion Gap 3 mmol/L (8-16); Aspartate Amino Transferase 24 U/L (14-36); Bilirubin,Total 0.5 mg/dL (0.2-1.3); Blood Urea Nitrogen 15 mg/dL (7-17); CRP < 0.5 mg/dL (<1.0); Calcium 9.1 mg/dL (8.4-10.2); Carbon Dioxide 34 mmol/L (22-30); Chloride 101 mmol/L (98-107); Estimated Glomerular Filt Rate > 60; Glucose 64 mg/dL (65-110); Sodium 138 mmol/L (137-145)
[2022-08-04 12:47] LABS: Erythrocyte Sedimentation Rate 5 mm/hr (0-20)
[2022-08-11 20:48] LABS: Calprotectin, Stool 17 mcg/g
== END 2022-08-04 12:34 | disposition home or self-care (01) ==
LOC: ANHLAB 12:34
PROVIDERS: PCP Family Medicine; Visit Provider Nurse Practitioner Family
DX: K51.50 Left sided colitis without complications (principal); R19.7 Diarrhea, unspecified; R31.9 Hematuria, unspecified
CPT/HCPCS: 36415; 80053; 83993; 85027; 85652; 86140; 87045; 87086; 87088; 87177; 87209; 87427; 87493

== ENCOUNTER 2022-08-05 11:16 | Outpatient (CLI) | payer OTHER, SELFPAY ==
[2022-08-05 12:00] LABS: Appearance Urine Cloudy (Clear); Bacteria Urine 4+ /hpf; Bilirubin Urine Negative (Negative); Blood Urine Negative (Negative); Color Urine Yellow (Yellow); Glucose Urine UA Negative (Negative); Ketones Urine Trace mg/dL (Negative); Leukocyte Esterase Ur Negative LEU/UL (NEGATIVE); Need Manual Microscopic Reviewed; Nitrate Urine Negative (Negative); Protein Urine Negative (Negative); Specific Grav Ur 1.024 (1.001-1.035); Squamous Epithelial Cell Urine Moderate /hpf (Few); Urobilinogen Urine 0.2 mg/dL (<2.0); pH Urine 5.5 (5.0-9.0)
[2022-08-05 12:04] LABS: Add Urine Microscopic? YES
== END 2022-08-05 11:17 | disposition home or self-care (01) ==
LOC: ANHLAB 11:18
PROVIDERS: PCP Family Medicine; Visit Provider Physician Assistant
DX: R31.9 Hematuria, unspecified (principal)
CPT/HCPCS: 81001; 87086; 87088

== ENCOUNTER 2022-08-07 13:43 | Outpatient (CLI) | payer OTHER, SELFPAY ==
[2022-08-13 23:43] LABS: Calprotectin, Stool 19 mcg/g
== END 2022-08-07 13:44 | disposition home or self-care (01) ==
LOC: ANHLAB 13:46
PROVIDERS: PCP Family Medicine; Visit Provider Nurse Practitioner Family
DX: K51.50 Left sided colitis without complications (principal); R19.7 Diarrhea, unspecified
CPT/HCPCS: 83993; 87177; 87209

== ENCOUNTER 2022-09-26 12:59 | Outpatient (CLI) | payer OTHER, SELFPAY ==
--- NOTE | ~2022-09-26 | XR_ITS ---
XR lumbar spine min 4V DATE: 09/26/2022 13:26 INDICATION: Low back pain TECHNIQUE: AP, lateral, coned lateral lumbosacral and bilateral oblique views COMPARISON: None FINDINGS: Normal alignment of the lumbar spine. No fracture or bone destruction, spondylolysis or spo ndylolisthesis. The lumbar pedicles are intact. There is minimal degenerative spurring at L3-4 and L4-5. Lumbar and lumbosacral interspaces are well preserved. The sacroiliac joints are intact. IMPRESSION: Minimal degenerative change Reviewed, dictated and finalized at location L. IMPRESSION: Minimal degenerative change
== END 2022-09-26 13:00 | disposition home or self-care (01) ==
PROVIDERS: PCP Family Medicine; Visit Provider Physician Assistant
DX: M54.50 Low back pain, unspecified (principal)
CPT/HCPCS: 72110

== ENCOUNTER 2022-12-20 08:56 | Emergency (ER) | payer OTHER, SELFPAY ==
--- NOTE | 2022-12-20 09:01 | ED.URI ---
HPI - URI/Sore Throat General Chief Complaint: Upper Respiratory Infection Stated Complaint: sorethroat,bilateral ear discomfort Time Seen by Provider: 12/20/22 09:29 Source: patient and RN notes reviewed Mode of arrival: ambulatory Limitations: no limitations History of Present Illness HPI Narrative: 37-year-old female presents with concern for sore throat, general malaise, body aches, headache, sinus drainage and pressure for 1 week. She reports taking Tylenol. She denies known sick contacts. MD elicited complaint: sore throat Related Data Home Medications Medication Instructions Recorded Confirmed duloxetine 60 mg capsule,delayed 60 mg PO DAILY 01/09/19 12/20/22 release (Cymbalta) Allergies Allergy/AdvReac Type Severity Reaction Status Date / Time hydrocodone Allergy Mild ITCHY Verified 12/20/22 09:21 Review of Systems Review of Systems: CONSTITUTIONAL: Reports malaise. Denies chills, sweats, or fever. EYES: Denies visual changes, redness, or discharge. ENT: Reports rhinorrhea, congestion, otalgia and sore throat. CARDIOVASCULAR: Denies chest pain, palpitations, or edema. RESPIRATORY: Reports cough. Denies dyspnea. GASTROINTESTINAL: Denies abdominal pain, nausea, vomiting, diarrhea SKIN: Denies rash or itching. MUSCULOSKELETAL: Reports myalgia. NEUROLOGIC: Reports headache. All systems reviewed & are unremarkable except as noted in HPI and below PMFSH Past Medical History Medical History Bloating ADRIA (generalized anxiety disorder) History of miscarriage Hypoglycemia Irritable bowel syndrome with both constipation and diarrhea Left sided colitis MDD (major depressive disorder), recurrent, in partial remission Family History Family History Sibling Depression Mother Family history of malignant neoplasm of breast in first degree relative Father Family history of malignant melanoma Other Carcinoma of colon Cerebrovascular accident Social History Social History Smoking status: Never smoker Second hand tobacco smoke exposure: No Alcohol intake: never Substance use: never Substance use type: does not use Living arrangements: with family Occupation/Education: occupation Gender identity (if verbalized by the patient): Female Comments At time of signature, agree with nursing past medical, surgical, social and family history. There is no relevant family history pertinent to the presenting complaint Exam Narrative: GENERAL: Well-appearing, well-nourished, and in no acute distress. HEAD: Normocephalic EYES: PERRLA, conjunctivae clear ENT: Nares clear, turbinates edematous and erythematous, clear discharge. Mucous membranes moist. TM pearly ramirez with dull light reflex bilaterally; no tragal tenderness. Oropharynx erythematous without lesions. Tonsils not enlarged and without exudate, no drooling, no hoarseness, no trismus, uvula midline. NECK: Supple. No lymphadenopathy CHEST: Clear to auscultation, breath sounds equal. No wheezing, rhonchi, rales, or stridor. No respiratory distress, speaks in full sentences. HEART: Regular rate and rhythm. No murmur heard. SKIN: Warm, dry, no rash. NEURO: Alert and oriented x3. PSYCH: Normal mood and affect Course Course Emergency Course: Patient is aware of diagnosis, understands and agrees to treatment plan. Anticipatory guidance given. Patient agrees to follow-up as directed and is aware of reasons to seek care at the emergency department. Portions of this record may have been created with voice recognition software Level of Care: Express Care Visit Vital Signs Vital signs: Reviewed. MDM - URI/Sore Throat MDM Narrative Medical decision making narrative: Differential diagnosis considered: [place] virus, strep pharyngitis, allergic rhinitis, upper r
[2022-12-20 09:09] VITALS: BP 105/81; PULSE 72; RESP 18; TEMP 36.6; O2SAT 99
== END 2022-12-20 09:42 | disposition home or self-care (01) ==
PROVIDERS: Emergency Provider Nurse Practitioner; PCP Family Medicine
DX: J02.0 Streptococcal pharyngitis (principal)
CPT/HCPCS: 87880; 99213; G0463

== ENCOUNTER → 2023-01-29 13:34 | Outpatient (CLI) | payer OTHER, SELFPAY ==
--- NOTE | ~2023-01-29 | US_ITS ---
US breast LT limited DATE: 01/29/2023 13:59 INDICATION: Follow-up of stable probably benign left breast mass noted on 11/04/2021 Limited breast ult rasound examination TECHNIQUE: Real-time and color flow imaging targeted to 9-10:00 area COMPARISON: 11/04/2021 Limited left breast ultrasound 01/24/2022 bilateral screening mammogram FINDINGS: At 9-10:00 6 cm from the nipple there is an oval parallel circumscribed hypoechoic lesion m easuring approximately 11 x 6 x 7 mm. No internal vascularity or suspicious shadowing is noted. On 11/04/2021 a 4.5 x 8.9 x 7.2 mm circumscribed hypoechoic lesion was identified at 9:00 2 cm from nip ple. No sonographic abnormality is detected currently at 9:00 2 cm from the nipple. IMPRESSION: BI-RADS Category 3: Probably benign Recommendation: The patient reportedly is having a MR breast examination within a couple of months; c omparison of that MR breast examination to this examination is recommended Reviewed, dictated and finalized at Location A. Reviewed, dictated and finalized at location A. RE SOFTWARE ASSESSOR IMPRESSION: BI-RADS Category 3: Probably benign Recommendation: The patient reportedly is having a MR breast examination within a couple of months; comparison of that MR breast examination to this examinati on is recommended
== END ==
PROVIDERS: PCP Obstetrics & Gynecology Gynecology; Visit Provider Obstetrics & Gynecology Gynecology
DX: R92.8 Other abnormal and inconclusive findings on diagnostic imaging of breast (principal)
CPT/HCPCS: 76642

== ENCOUNTER → 2023-01-30 15:16 | Outpatient (CLI) | payer OTHER, SELFPAY ==
--- NOTE | ~2023-01-30 | US_ITS ---
US soft tissue head and neck 01/30/2023 15:29 Indication: Palpable area adjacent to the right ear superior to the TMJ Procedure: High-resolution Limited ultrasound of the right neck soft tissues in the area of palpable concern Comparison: No prior studies for comparison. Findings: In the area of palpable concern there is an oval hypoechoic 6 x 5 x 4 mm mass with posterio r acoustic enhancement and no significant internal vascularity, possibly complicated cysts or lymph n ode. No other masses are identified. Impression: 1: Oval circumscribed 6 mm hypoechoic right neck mass in the area of palpable concern, most likely be nign complicated cyst or lymph node. Recommend follow-up ultrasound as clinically warranted. Reviewed, dictated and finalized at location B. ETIC TAPE TYPEWRITER OPERATOR Impression: 1: Oval circumscribed 6 mm hypoechoic right neck mass in the area of palpable c oncern, most likely benign complicated cyst or lymph node. Recommend follow-up ultrasound as clinically warranted.
== END ==
PROVIDERS: PCP Physician Assistant; Visit Provider Physician Assistant
DX: R22.0 Localized swelling, mass and lump, head (principal)
CPT/HCPCS: 76536

== ENCOUNTER 2023-02-16 10:34 | Outpatient (CLI) | payer OTHER, SELFPAY ==
--- NOTE | ~2023-02-16 | MR_ITS ---
MR breast BI wo/w con 02/16/2023 12:27 VALET CASHIER INDICATION: Breast cancer screening. TECHNIQUE: MRI of the breasts perform using standard protocol pre-and post IV contrast with the follo wing sequences: Axial T2 STIR, axial T1, axial vibrant T1 with fat suppression precontrast and multip hasic postcontrast. 11 cc of MultiHance administered intravenously. COMPARISON: Comparison to multiple prior studies sequentially, with oldest reviewed study dated 05/19. FINDINGS: Right breast: There are no abnormalities on the precontrast sequences. There is marked background par enchymal enhancement. In the central anterior aspect of the right breast, 1.7 cm from the nipple ther e is a 8 x 5 x 6 mm enhancing mass which is T1 isointense and T2 dark with rapid plateau enhancement. Recommend Limited right breast ultrasound for characterization of this abnormality. In the central m edial aspect of the right breast posteriorly there is an enhancing mass measuring 6 x 5 x 4 mm which is T1 isointense and T2 dark with rapid washout enhancement. This mass likely corresponds to intramam neeta lymph node identified on right breast ultrasound dated 10/12/2020. No evidence of signal abnormal ities in the axillary or internal mammary node distributions. LEFT BREAST: No signal abnormalities on precontrast sequences. There is marked background parenchyma l enhancement. In the lower inner quadrant of the left breast there is an enhancing mass measuring 1. 2 x 0.8 x 0.6 cm which is isointense on T1 and hypointense on T2 with rapid plateau enhancement. No e vidence of signal abnormalities in the axillary or internal mammary node distributions.] IMPRESSION: 1: Right breast: Right breast masses, including a millimeter mass located centrally 1.7 cm from the nipple and a 6 mm mass central posterior breast. Recommend right breast ultrasound for characterizati on of these abnormalities. BI-RADS Category 0. 2: Left breast: Probable benign enhancing mass in the lower inner quadrant measuring 12 mm, 8 cm pos terior to the nipple. This likely corresponds to the ultrasound finding dated 01/29/2023 and 2. BI-RADS Category 3, short-term follow-up six-month ultrasound recommended. Reviewed, dictated and finalized at location A. T CASHIER IMPRESSION: 1: Right breast: Right breast masses, including a millimeter mass located cent rally 1.7 cm from the nipple and a 6 mm mass central posterior breast. Recommen d right breast ultrasound for characterization of these abnormalities. BI-RADS Category 0. 2: Left breast: Probable benign enhancing mass in the lower inner quadrant [place] 12 mm, 8 cm posterior to the nipple. This likely corresponds to the ultr asound finding dated 01/29/2023 and 11/04/2021. BI-RADS Category 3, short-term f ollow-up six-month ultrasound recommended.
== END 2023-02-16 10:35 | disposition home or self-care (01) ==
LOC: ANHIMG 10:36
PROVIDERS: PCP Family Medicine; Visit Provider Obstetrics & Gynecology Gynecology
DX: R92.2 Inconclusive mammogram (principal)
CPT/HCPCS: 77049; A9577; C8908

== ENCOUNTER 2023-03-13 08:42 | Outpatient (CLI) | payer OTHER, SELFPAY ==
--- NOTE | ~2023-03-13 | MMUS_ITS ---
EXAMINATION: MM diagnostic quynh BI w bruce, US breast BI limited HISTORY: Bilateral breast masses on MRI examination TECHNIQUE: Craniocaudal, mediolateral, and mediolateral oblique 3-D tomosynthesis images of the breas ts were performed and synthetic 2-D images were generated. CAD analysis was submitted and interpreted . High resolution limited bilateral breast ultrasound was performed. COMPARISON: 02/16/2023, 01/29/2023, 01/24/2022, 05/03/2021, 10/12/2020 BREAST PARENCHYMAL COMPOSITION: The breasts are extremely dense, which lowers the sensitivity of mamm ography. FINDINGS: MAMMOGRAPHIC FINDINGS: Right breast: No suspicious mass, calcification, or architectural distortion are identified to sugges t malignancy. There has been no suspicious interval change. No mammographic correlate is identified f or the subareolar right breast mass described the comparison MRI. The second possible mass in the nathan tral breast described on MRI as an appearance similar to other focal areas of background parenchymal enhancement. Left breast: There is a stable 10 mm oval, obscured, equal density mass in the posterior third of inn er breast at the 9:00 location, 6 cm from the nipple. No suspicious calcification or architectural di stortion are identified. ULTRASOUND: Right breast: No sonographic correlate is identified for the area of subareolar enhancement on the co mparison MRI examination. Left breast: There is a stable 1.1 x 0.6 cm oval, circumscribed, parallel, hypoechoic mass with no po sterior features or internal vascularity at the 9:00 location, 6 cm from the nipple, consistent with a benign finding given the lack of interval change. IMPRESSION: 1. No mammographic or sonographic correlate for the area of subareolar enhancement in the right breas t seen on the comparison MRI. MR guided biopsy is recommended. BI-RADS category 4, suspicious findings. Reviewed, dictated and finalized at location A. OND SORTER IMPRESSION: 1. No mammographic or sonographic correlate for the area of subareolar enhancem ent in the right breast seen on the comparison MRI. MR guided biopsy is recomme nded. BI-RADS category 4, suspicious findings.
== END 2023-03-13 08:43 ==
LOC: MICIMG 08:45
PROVIDERS: PCP Obstetrics & Gynecology Gynecology; Visit Provider Obstetrics & Gynecology Gynecology
DX: N63.10 Unspecified lump in the right breast, unspecified quadrant (principal); R92.8 Other abnormal and inconclusive findings on diagnostic imaging of breast
CPT/HCPCS: 76642; 77062; 77066; G0279

== ENCOUNTER 2023-04-11 15:42 | Emergency (ER) | payer OTHER, SELFPAY ==
--- NOTE | 2023-04-11 15:48 | ED.URI ---
HPI - URI/Sore Throat General Chief Complaint: Upper Respiratory Infection Stated Complaint: cough,headache Time Seen by Provider: 04/11/23 15:47 Source: patient Mode of arrival: ambulatory Limitations: no limitations History of Present Illness HPI Narrative: Lucy is a 37-year-old female patient presenting to clinic today with complaints of cough, nasal congestion, low-grade temp, chills, and headache times 2-3 days. She reports she had a low-grade temp and some chills over the weekend and that resolved on Sunday however she developed symptoms last night again. States that she has possible exposure to COVID. MD elicited complaint: sore throat and nasal congestion Related Data Home Medications Medication Instructions Recorded Confirmed duloxetine 60 mg capsule,delayed 60 mg PO DAILY 01/09/19 04/11/23 release (Cymbalta) hyoscyamine sulfate 0.125 mg 0.125 mg sublingual QID abdominal 04/11/23 04/11/23 sublingual tablet pain Allergies Allergy/AdvReac Type Severity Reaction Status Date / Time hydrocodone Allergy Mild ITCHY Verified 04/11/23 15:57 Review of Systems Review of Systems: Pertinent positives per HPI. Patient denies any rash, visual changes, dizziness, shortness of breath, chest pain, palpitations, nausea, vomiting, diarrhea, constipation, abdominal pain, or any urinary issues. COUNT INCLUDES THE [facility] Past Medical History Medical History Bloating ADRIA (generalized anxiety disorder) History of miscarriage Hypoglycemia Irritable bowel syndrome with both constipation and diarrhea Left sided colitis MDD (major depressive disorder), recurrent, in partial remission Family History Family History Sibling Depression Mother Family history of malignant neoplasm of breast in first degree relative Father Family history of malignant melanoma Other Carcinoma of colon Cerebrovascular accident Social History Social History Smoking status: Never smoker Second hand tobacco smoke exposure: No Alcohol intake: never Substance use: never Substance use type: does not use Do You Feel Safe in your Home?: Yes Lack of Transportation: No Lack of Food: Never True Current Housing: I Have Housing Concerned About Future Housing: No Difficulty Paying Gas/Electric Bills: No Difficulty Paying for Meds: No Currently Unemployed: No Education: Associate Degree Difficulty w/ Childcare or Family Care: No Living arrangements: with family Occupation/Education: occupation Gender identity (if verbalized by the patient): Female Comments At the time of my signature, I reviewed and agree with the nursing past medical, surgical, social, and family history. There is no relevant family history pertinent to the patient complaint. Exam Narrative: General: Well-developed, well nourished, in no apparent distress Head: Normocephalic, atraumatic Eyes: Pupils equally round and reactive to light bilaterally, EOM intact, sclera and conjunctive clear, no discharge, lids normal Ears: TMs intact and congested, ear canals clear, no drainage, grossly hearing normal. Nose: Nares patent, clear nasal discharge, no inflammation, no sinus tenderness. Mouth: Oral pharynx without lesions or masses, good dentition, MMM. Neck: Supple, trachea midline, no enlargement of anterior or posterior cervical nodes, no thyroid masses or goiter palpable. Cardio: Regular rate and rhythm, s1 and s2 normal, no murmur appreciated. Resp: Clear to auscultation bilaterally, no rhonchi, rales, wheezing or rubs Course Course Emergency Course: Portions of this record may have been created with voice recognition software. Level of Care: Express Care Visit Vital Signs Vital signs: Vital signs reviewed MDM - URI/Sore Throat MDM Narrative Medical decision stef
[2023-04-11 15:54] VITALS: BP 119/67; PULSE 98; RESP 16; TEMP 36.6; O2SAT 99
[2023-04-11 15:58] VITALS: BP 119/67; PULSE 98; RESP 16; TEMP 36.6; O2SAT 99
== END 2023-04-11 16:24 | disposition home or self-care (01) ==
PROVIDERS: Emergency Provider Nurse Practitioner Family; PCP Family Medicine
DX: J06.9 Acute upper respiratory infection, unspecified (principal); Z20.822 Contact with and (suspected) exposure to COVID-19; F41.1 Generalized anxiety disorder; F33.8 Other recurrent depressive disorders
CPT/HCPCS: 87426; 87804; 99213; G0463

== ENCOUNTER 2023-04-13 09:55 | Outpatient (CLI) | payer OTHER, SELFPAY ==
[2023-04-13 10:54] LABS: Influenza A QL RT-PCR Positive (Negative); Influenza B QL RT-PCR Negative (Negative); RSV RNA, RT-PCR Negative (Negative); SARS-CoV-2 RNA PCR Negative (Negative)
== END 2023-04-13 09:56 | disposition home or self-care (01) ==
PROVIDERS: PCP Family Medicine; Visit Provider Physician Assistant Medical
DX: R50.9 Fever, unspecified (principal); R05.9 Cough, unspecified; J02.9 Acute pharyngitis, unspecified; Z20.822 Contact with and (suspected) exposure to COVID-19
CPT/HCPCS: 87637

== ENCOUNTER 2023-05-11 12:32 | Outpatient (CLI) | payer OTHER, SELFPAY ==
--- NOTE | ~2023-05-11 | US_ITS ---
EXAMINATION: US FNA w image guidance DATE: 05/11/2023 14:00 INDICATION: Lesion at the right parotid/temporomandibular region suspicious for mucocele of the saliv sonja gland. TECHNIQUE: A time-out was performed to verify the patient's name, date of , and procedure to be performed . The procedure and its benefits and risks were discussed with the patient. Risks specifically discus sed included bleeding and infection. The patient understood the risks and agreed to proceed. The neck was prepped and draped in the usual sterile manner. 3 mL 1% lidocaine was used for local anesthesia . An initial pass was made with a 25G needle into the lesion with continuous sonographic observation which did not appear to yield any tissue or fluid. Attempt was then made to aspirate fluid from the cystic lesion utilizing a 21G needle. 2 passes were made with continuous sonographic observation whic h yielded 8 scant amount of thick gelatinous material. A sterile bandage was applied. There were no immediate complications. FINDINGS: Grayscale ultrasound images demonstrate biopsy needles advanced into a 6 x 4 mm anechoic lesion along the cephalad most margin of the parotid gland and appearing to abut the mandibular condyle. IMPRESSION: 1. Successful ultrasound-guided fine needle aspiration of a 6 mm anechoic lesion which appears to ab ut both the parotid and right mandibular condyle. Differential would include a parotid mucocele or ot her cystic parotid neoplasm or potentially a ganglion cyst arising from the temporomandibular joint. Would consider further evaluation with pre and postcontrast MRI both 2 or definitively localize lesio n noted potential etiology as well as to assess for any enhancing soft tissue component. Reviewed, dictated and finalized at location A. TIC SURGERY COORDINATOR IMPRESSION: 1. Successful ultrasound-guided fine needle aspiration of a 6 mm anechoic lesi on which appears to abut both the parotid and right mandibular condyle. Differe ntial would include a parotid mucocele or other cystic parotid neoplasm or pote ntially a ganglion cyst arising from the temporomandibular joint. Would conside r further evaluation with pre and postcontrast MRI both 2 or definitively local ize lesion noted potential etiology as well as to assess for any enhancing soft tissue component.
== END 2023-05-11 12:33 | disposition home or self-care (01) ==
LOC: ANHIMG 12:34
PROVIDERS: PCP Family Medicine; Visit Provider Otolaryngology
DX: K11.6 Mucocele of salivary gland (principal)
CPT/HCPCS: 10005; 88108; 88305

== ENCOUNTER 2023-07-28 09:27 | Emergency (ER) | payer OTHER, SELFPAY ==
[2023-07-28 09:38] VITALS: BP 103/64; PULSE 94; RESP 18; TEMP 36.7; O2SAT 100
[2023-07-28 09:39] VITALS: BP 103/64; PULSE 94; RESP 18; TEMP 36.7; O2SAT 100
--- NOTE | 2023-07-28 09:52 | ED.BACK ---
HPI - Back Pain/Injury General Chief Complaint: Back Pain/Injury Stated Complaint: Back Injury Time Seen by Provider: 07/28/23 09:42 Source: patient and RN notes reviewed Mode of arrival: ambulatory Limitations: no limitations History of Present Illness HPI Narrative: Patient presents today complaining of bilateral low back pain since last night. States she was getting off her bed with a basket of laundry and felt a sharp pain. Denies any known injury or trauma. Denies radiation of the pain. Denies numbness or tingling in the legs or genitalia. Denies any loss of bowel or bladder control. She currently rates her pain /10. She took a dose of ibuprofen last night for pain without relief. She has tried nothing for pain today. Related Data Home Medications Medication Instructions Recorded Confirmed duloxetine 60 mg capsule,delayed 60 mg PO DAILY 01/09/19 07/28/23 release (Cymbalta) hyoscyamine sulfate 0.125 mg 0.125 mg sublingual QID abdominal 04/11/23 07/28/23 sublingual tablet pain Allergies Allergy/AdvReac Type Severity Reaction Status Date / Time hydrocodone Allergy Mild ITCHY Verified 07/28/23 09:39 Review of Systems Review of Systems: CONSTITUTIONAL: Denies body aches, fever, chills, or sweats. EYES: Denies visual changes, redness, or discharge. ENT: Denies rhinorrhea, congestion, sore throat, or otalgia. CARDIOVASCULAR: Denies chest pain, palpitations, or edema. RESPIRATORY: Denies cough or dyspnea. GASTROINTESTINAL: Denies abdominal pain, nausea, vomiting, or diarrhea. GENITOURINARY: Denies dysuria or hematuria. SKIN: Denies rash, itching, or wounds. MUSCULOSKELETAL: Denies joint pain..+ low back pain NEUROLOGIC: Denies headache, numbness, tingling, or weakness. PSYCH: Denies depression or anxiety. [facility] Past Medical History Medical History Bloating ADRIA (generalized anxiety disorder) History of miscarriage Hypoglycemia Irritable bowel syndrome with both constipation and diarrhea Left sided colitis MDD (major depressive disorder), recurrent, in partial remission Family History Family History Sibling Depression Mother Family history of malignant neoplasm of breast in first degree relative Father Family history of malignant melanoma Other Carcinoma of colon Cerebrovascular accident Social History Social History Smoking status: Never smoker Second hand tobacco smoke exposure: No Alcohol intake: never Substance use: never Substance use type: does not use Do You Feel Safe in your Home?: Yes Lack of Transportation: No Lack of Food: Never True Current Housing: I Have Housing Concerned About Future Housing: No Difficulty Paying Gas/Electric Bills: No Difficulty Paying for Meds: No Currently Unemployed: No Education: Associate Degree Difficulty w/ Childcare or Family Care: No Living arrangements: with family Occupation/Education: occupation Gender identity (if verbalized by the patient): Female Comments At time of signature, I have reviewed and agree with nursing past medical, surgical, social and family history unless otherwise noted. Please see nursing chart for further information. There is no relevant family history pertinent to the presenting complaint Exam Narrative: GENERAL: Well-appearing, well-nourished, and moderate pain distress. HEAD: Normocephalic, atraumatic. EYES: EOMI. No redness or drainage. Conjunctivae normal. ENT: Mucous membranes pink and moist. NECK: Normal AROM. CHEST: No respiratory distress. MUSCULOSKELETAL: No bony tenderness of the thoracic or lumbar spine. Bilateral tenderness of the lumbar paraspinal muscles that does not extend to the SI joints. Palpable muscle spasms on the left. Distal sensation intact. Saddle sensation
== END 2023-07-28 10:00 | disposition home or self-care (01) ==
PROVIDERS: Emergency Provider Nurse Practitioner; PCP Family Medicine
DX: S39.012A Strain of muscle, fascia and tendon of lower back, initial encounter (principal); X58.XXXA Exposure to other specified factors, initial encounter
CPT/HCPCS: 99213; G0463

== ENCOUNTER 2023-11-26 15:30 | Emergency (ER) | payer OTHER, SELFPAY ==
[2023-11-26 15:42] VITALS: BP 105/74; PULSE 86; RESP 18; TEMP 37.1; O2SAT 100
[2023-11-26 15:45] VITALS: BP 105/74; PULSE 86; RESP 18; TEMP 37.1; O2SAT 100
--- NOTE | 2023-11-26 16:01 | ED.URI ---
HPI - URI/Sore Throat General Chief Complaint: Upper Respiratory Infection Stated Complaint: sore throat / RT Ear Pain Time Seen by Provider: 11/26/23 15:51 Source: patient and RN notes reviewed Mode of arrival: ambulatory Limitations: no limitations History of Present Illness HPI Narrative: Patient presents today complaining of 2 day history of right ear pain and fatigue with sore throat that started this morning. Denies any additional symptoms to include fever, cough, congestion, rhinorrhea. Currently rates her sore throat 5/10 and has been taking Tylenol with relief. 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 Patient had a ganglion cyst removed from in front of her right ear approximately 6 weeks ago and is unsure if this is why her ear is bothering her now, as it has been numb since the surgery Related Data Home Medications Medication Instructions Recorded Confirmed duloxetine 60 mg capsule,delayed 60 mg PO DAILY 01/09/19 11/26/23 release (Cymbalta) hyoscyamine sulfate 0.125 mg 0.125 mg sublingual QID abdominal 04/11/23 11/26/23 sublingual tablet pain Allergies Allergy/AdvReac Type Severity Reaction Status Date / Time hydrocodone Allergy Mild ITCHY Verified 11/26/23 15:43 Review of Systems Review of Systems: CONSTITUTIONAL: Denies body aches, fever, chills, or sweats.+ fatigue EYES: Denies visual changes, redness, or discharge. ENT: Denies rhinorrhea, congestion. + sore throat, right ear pain CARDIOVASCULAR: Denies chest pain, palpitations, or edema. RESPIRATORY: Denies cough or dyspnea. GASTROINTESTINAL: Denies abdominal pain, nausea, vomiting, or diarrhea. GENITOURINARY: Denies dysuria or hematuria. SKIN: Denies rash, itching, or wounds. MUSCULOSKELETAL: Denies back pain, joint pain, or myalgia. NEUROLOGIC: Denies headache, numbness, tingling, or weakness. PSYCH: Denies depression or anxiety. [facility] Past Medical History Medical History Bloating ADRIA (generalized anxiety disorder) History of miscarriage Hypoglycemia Irritable bowel syndrome with both constipation and diarrhea Left sided colitis MDD (major depressive disorder), recurrent, in partial remission Family History Family History Sibling Depression Mother Family history of malignant neoplasm of breast in first degree relative Father Family history of malignant melanoma Other Carcinoma of colon Cerebrovascular accident Social History Social History Smoking status: Never smoker Second hand tobacco smoke exposure: No Alcohol intake: never Substance use: never Substance use type: does not use Do You Feel Safe in your Home?: Yes Lack of Transportation: No Lack of Food: Never True Current Housing: I Have Housing Concerned About Future Housing: No Difficulty Paying Gas/Electric Bills: No Difficulty Paying for Meds: No Currently Unemployed: No Education: Associate Degree Difficulty w/ Childcare or Family Care: No Living arrangements: with family Occupation/Education: occupation Gender identity (if verbalized by the patient): Female Comments At time of signature, I have reviewed and agree with nursing past medical, surgical, social and family history unless otherwise noted. Please see nursing chart for further information. There is no relevant family history pertinent to the presenting complaint Exam Narrative: GENERAL: Well-appearing, well-nourished, and in no acute distress. HEAD: Normocephalic, atraumatic. EYES: EOMI. No redness or drainage. Conjunctivae normal. ENT: Mucous membranes pink and moist. Nares clear. No rhinorrhea. TMs normal bilaterally. Surgical scar in the right pre-auricular area without redness, swelling. Throat mildly erythematous without edema or exudate. Uvula midline. NECK: Normal AROM. Supp
[2023-11-26 16:03] LABS: EDSTREPNEGPOS1 Negative (Negative)
== END 2023-11-26 16:11 | disposition home or self-care (01) ==
PROVIDERS: Emergency Provider Nurse Practitioner; PCP Family Medicine
DX: J02.9 Acute pharyngitis, unspecified (principal)
CPT/HCPCS: 87081; 87880; 99213; G0463

== ENCOUNTER 2023-12-11 08:29 | Emergency (ER) | payer OTHER, SELFPAY ==
[2023-12-11 08:45] VITALS: BP 110/68; PULSE 75; RESP 18; TEMP 36.7; O2SAT 100
--- NOTE | 2023-12-11 08:50 | ED.URI ---
HPI - URI/Sore Throat General Chief Complaint: Upper Respiratory Infection Stated Complaint: SORE THROAT Time Seen by Provider: 12/11/23 08:56 Source: patient Mode of arrival: ambulatory Limitations: no limitations History of Present Illness HPI Narrative: Lucy is a 38-year-old female patient presenting to the clinic today with complaints cough, losing her voice, congestion, and sore throat x4 days. She denies any fever or chills. Denies any chest pain or shortness of breath. Works in a daycare center. Has had exposure to strep and is wanting strep testing in the clinic today. MD elicited complaint: sore throat and nasal congestion Related Data Home Medications Medication Instructions Recorded Confirmed duloxetine 60 mg capsule,delayed 60 mg PO DAILY 01/09/19 12/11/23 release (Cymbalta) hyoscyamine sulfate 0.125 mg 0.125 mg sublingual QID abdominal 04/11/23 12/11/23 sublingual tablet pain Allergies Allergy/AdvReac Type Severity Reaction Status Date / Time hydrocodone AdvReac Mild ITCHY Verified 12/11/23 08:35 Review of Systems Review of Systems: Pertinent positives per HPI. Patient denies any fever, chills, rash, headache, visual changes, dizziness, shortness of breath, chest pain, palpitations, nausea, vomiting, diarrhea, constipation, abdominal pain, or any urinary issues. [facility] Past Medical History Medical History Bloating ADRIA (generalized anxiety disorder) History of miscarriage Hypoglycemia Irritable bowel syndrome with both constipation and diarrhea Left sided colitis MDD (major depressive disorder), recurrent, in partial remission Family History Family History Sibling Depression Mother Family history of malignant neoplasm of breast in first degree relative Father Family history of malignant melanoma Other Carcinoma of colon Cerebrovascular accident Social History Social History Smoking status: Never smoker Second hand tobacco smoke exposure: No Alcohol intake: never Substance use: never Substance use type: does not use Do You Feel Safe in your Home?: Yes Lack of Transportation: No Lack of Food: Never True Current Housing: I Have Housing Concerned About Future Housing: No Difficulty Paying Gas/Electric Bills: No Difficulty Paying for Meds: No Currently Unemployed: No Education: Associate Degree Difficulty w/ Childcare or Family Care: No Living arrangements: with family Occupation/Education: occupation Gender identity (if verbalized by the patient): Female Comments At the time of my signature, I reviewed and agree with the nursing past medical, surgical, social, and family history. There is no relevant family history pertinent to the patient complaint. Exam Narrative: General: Well-developed, well nourished, in no apparent distress Head: Normocephalic, atraumatic Eyes: Pupils equally round and reactive to light bilaterally, EOM intact, sclera and conjunctive clear, no discharge, lids normal Ears: TMs intact and clear, ear canals clear, no drainage, grossly hearing normal. Nose: Nares patent, clear nasal discharge, no inflammation, no sinus tenderness. Mouth: Oral pharynx red without lesions or masses, good dentition, MMM. Postnasal drip Neck: Supple, trachea midline, no enlargement of anterior or posterior cervical nodes, no thyroid masses or goiter palpable. Cardio: Regular rate and rhythm, s1 and s2 normal, no murmur appreciated. Resp: Clear to auscultation bilaterally, no rhonchi, rales, wheezing or rubs Course Course Emergency Course: Portions of this record may have been created with voice recognition software. Level of Care: Express Care Visit Vital Signs Vital signs: Vital Signs Temperature 36.7 C 12/11/23 08:45 Pulse Rate 75
[2023-12-11 08:56] LABS: EDSTREPNEGPOS1 Negative (Negative)
== END 2023-12-11 09:10 | disposition home or self-care (01) ==
PROVIDERS: Emergency Provider Nurse Practitioner Family; PCP Family Medicine
DX: J06.9 Acute upper respiratory infection, unspecified (principal); J02.9 Acute pharyngitis, unspecified
CPT/HCPCS: 87081; 87880; 99213; G0463

== ENCOUNTER 2024-05-24 10:44 | Outpatient (CLI) | payer OTHER, SELFPAY ==
--- OUTSIDE RECORDS SUMMARY | 2024-05-24 10:48 | XMS_ITS | Clinical Summary ---
Author Organization [facility] Administrative Offices Address [address] [place] [address] Care Team Providers Care Enamel Shader Name Role Phone Unavailable Primary Care Provider Unavailabl e Allergies No known active allergies Medications spironolactone (ALDACTONE) 100 mg tablet Take 100 mg by mouth daily. Active DULoxetine (CYMBALTA) 60 mg Capsule, Delayed Release(E.C.) Take 60 mg by mouth daily. Active MESALAMINE ORAL Take by mouth. Active Saccharomyces boulardii (FLORASTOR) 250 mg Capsule Take by mouth. Active polycarbophil calcium (FIBERCON) 625 mg tablet Take 625 mg by mouth daily. Active ibuprofen (MOTRIN) 600 mg tablet Take 1 Tablet (600 mg) by mouth every 6 hours as needed for Pain. 40 Tablet 10/18/2023 5:01 PM CDT 4 Active HYDROcodone-acetamino phen (NORCO) 5-325 mg tabletIndications:Cap sulitis of right temporomandibular joint Take 1 Tablet by mouth every 4 hours as needed for Pain, Moderate. Max Daily Amount: 6 Tablets 12 Tablet 10/18/2023 5:01 PM CDT 4 Active acetaminophen (TYLENOL) 325 mg tablet Take 2 Tablets (650 mg) by mouth every 6 hours as needed for Pain. 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 90 Tablet 6 Active Active Problems Problem Noted Date Diagnosed Date Ulcerative colitis 11/22/2023 Constipation 11/22/2023 Encounters Date Type Department Care Team Description 05/21/2024 External Device Data [facility] ABSTRACTION Provider, Abstract 05/13/2024 External Device Data [facility]CTION Provider, Abstract 05/13/2024 External Device Data [facility]CTION Provider, Abstract 05/10/2024 External Device Data [facility] Provider, Abstract 05/09/2024 External Device Data [facility]STRACTION Provider, Abstract 05/06/2024 External Device Data [facility]STRACTION Provider, Abstract 04/22/2024 External Device Data [facility]STRACTION Provider, Abstract 04/15/2024 External Device Data [facility]STRACTION Provider, Abstract 03/26/2024 External Device Data [facility]STRACTION Provider, Abstract 03/25/2024 External Device Data [facility]STRACTION Provider, Abstract from Last 3 Months Immunizations Immunization Administration Dates Next Due INFLUENZA VACCINE TRIVALENT SPLIT VIRUS, (6 MOS UP), 0.5ML (PF), IM 02/07/2024 Family History Medical History Relation Name Comments Colon Cancer Paternal Aunt age 52 Relation Name Status Comments Paternal Aunt Alive Social History Tobacco Use Types Packs/Day Years Used Date Smoking Tobacco: Never Smokeless Tobacco: Never Tobacco Cessation:Counseling Given: Not Answered Alcohol Use Standard Drinks/Week Comments Not Currently 0 (1 standard drink = 0.6 oz pur e alcohol) Feeling Safe Answer Date Recorded Are you in a relationship wi th someone who hurts you emotionally and/or physically? No 01/15/2024 Food Insecurity Answer Date Recorded Social/Environmental Concerns No concerns Transportation Needs Answer Date Record ed Social/Environmental Concerns No concerns Housing Stability Answer Date Recorded Social/Environmental Concerns No concerns Utility Needs Answer Date Recorded Social/Environmental Concerns No concerns Comments No Sex and Gender Information Value Date Recorded Sex Assigned at Not on file Legal Sex Female 8:51 AM CDT Gender Identity Not on file Sexual Orientation Not on file Last Filed Vital Signs Vital Sign Reading Time Taken Comments Blood Pressure 103/70 01/15/2024 10:00 AM 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 Pulse 78 01/15/2024 10:00 AM 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 Temperature 36.1 C (97 F) 01/15/2024 9:45 AM 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 Respiratory Rate 14 01/15/2024 10:00 AM 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 Oxygen Saturation 100% 01/15/2024 10:00 AM 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 Inhaled Oxygen Concentration - - Weight 59.4 kg (131 lb) 01/15/2024 8:48 AM 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 Height 167.6 cm (5' 6 ) 01/15/2024 8:48 AM 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 Body Mass Index 21.14 01/15/2024 8:48 AM 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 Plan of Treatment Health Maintenance Due Date Last Done Comments HEPATITIS B VACCINES (4 of 4 - 4-dose series) 07/17/2001 06/18/2001, 05/22/2001, 01/15/2001 PAP SMEAR 05/31/2004 CERVICAL CANCER SCREENING 05/31/2013 HPV/Cotest 05/31/2013 PAP SMEAR 05/31/2013 DTAP/TDAP/TD VACCINES (3 - T d or Tdap) 12/16/2017 12/17/2007, 05/19/1997 BREAST CANCER SCREENING 2023 Preventative Visit- Commercial 03/05/2024 INFLUENZA VACCINE Completed 02/07/2024, 01/05/2018 HPV VACCINES Aged Out No longer eligi ble based on patient's age to complete this topic Insurance [facility] F [address] OPEN ACCESS O RX [employer] RX Member Subscriber Plan / Payer (Ef fective 2023-Present) Name:Maicol Ozuna Relation to Subscriber:Self Name:Maicol Ozuna Subscriber ID:Not on file Payer ID:Not on file Type:RX Commercial Address: [address] Advance Directives For more information, please contact: [phone] * Full Code (Latest Code Status on File) Date Activated Date Inactivated Comments 01/15/2024 8:45 AM 01/15/2024 12:09 PM * Full Code Date Activated Date Inactivated Comments 10/18/2023 11:42 AM 10/18/2023 9:10 PM
--- OUTSIDE RECORDS SUMMARY | 2024-05-24 10:48 | XMS_ITS | Continuity of Care Document ---
Author Organization [facility] Address [id number] [place] [address] Phone Care Team Providers Care Human Resources Department Supervisor Name Role Phone Unavailable Unavailable Unavailable Advance Directives Directive Yes / No Effective Date File Name No Information Encounters Encounter Description Practice Location Reason(s) For Visit Diagnoses Date Provider Providers Copied on Encounter [facility], [id number], [place], [place], [id number], tel:[phone] [facility] No Information 9 No Information Referring Provider: KATYA BEAR, [address], [place], [address]. tel:[phone] Family History Family Member Type Diagnosis Age At Onset No Information Payers Payer name Insurance type Covered libertarian ID Authoriza tion(s) BS O [facility] [id number] Social History Type Description Quantity Date Captured Comments Sex Female Smoking Status No Information Chief Complaint And Reason For Visit No Information History Of Present Illness Encounter Date Complaint History Of Prese nt Illness No Information Instructions Date Instruction Additional Infor mation No Information Assessments Type Assessment Date No Information
--- OUTSIDE RECORDS SUMMARY | 2024-05-24 10:48 | XMS_ITS | Encounter Summary ---
Author Organization [facility] Healthcare Address [address] [place] [address] Care Team Providers Care Egg Trayer Name Role Phone Unavailable Primary Care Provider Unavailabl e Reason for Visit * Diagnostic Imaging (Routine) - Closed Specialty Diagnoses / Procedures Referred By Anatoliy t Referred To Contact Procedures Breast Imaging US Outside Reference Transcribed Order, Provider Referral ID Status Reason Start Date Expiration Date Visits Re quested Visits Authorized [id number] Closed 03/20/2023 04/18/2024 1 1 Encounter Details Date Type Department Care Team (Late st Contact Info) Description 04/28/2015 Hospital Encounter [facility] [address] [place] [address] [id number] Social History Tobacco Use Types Packs/Day Years Used Date Smoking Tobacco: Never Smokeless Tobacco: Never AUDIT-C Answer Date [...] on file Legal Sex Female 4:50 PM [employer] Gender Identity Not on file Sexual Orientation Not on file documented as of this encounter Functional Status * Audit-C Score Answer Date of Assessment Author 0 04/18/2023 9:14 AM Aydee John CMA * Question Answer Date of Assessment Author Q1: How often do you have a drink containing alcohol? Never 04/18/2023 9:14 AM Aydee John CMA Q2: How many drinks containing alcohol do you have on a typical day when you are drinking? Patient does not drink 04/18/2023 9:14 AM [employer] Aydee Brooks CMA Q3: How often do you have six or more drinks on one occasion? Never 04/18/2023 9:14 AM [employer] Aydee Brooks CMA documented as of this encounter Plan of Treatment Not on file documented as of this encounter Procedures Procedure Name Priority Date/Time Associated Diagnosis Comments BREAST IMAGING US OUTSIDE REFERENCE Routine 04/28/2015 12:00 AM MOTOR AND [employer]ATOR [employer] documented in this encounter Results * Breast Imaging US Outside Reference (04/28/2015 12:00 AM MOTOR AND GENERATOR [employer]KER) Impressions [facility] - 03/20/2023 10:37 AM MOTOR AND [employer]ATOR [employer]KER These images are for Reference purposes only and have not been reviewed by [facility] Radiology. There will be no report generated by a [facility] Radiologist. Narrative [facility] - 03/20/2023 10:37 AM MOTOR AND GENERATOR [employer]ER EXAMINATION: Images For Reference Purposes Only us Provider Transcribed Order IMG MAMMO PROCEDURES Final Result [facility] documented in this encounter Visit Diagnoses Not on filedocumented in this encounter
--- OUTSIDE RECORDS SUMMARY | 2024-05-24 10:48 | XMS_ITS | Clinical Summary ---
Author Organization [facility] Address [address] [place] [address] Care Team Providers Care Hand Tile Maker Name Role Phone Lang De León MD Primary Care Provider Jessica Coelho NP Unavailable [phone] Kristine Xavier MD Unavailable Allergies No known active allergies Medications spironolactone (ALDACTONE) 100 mg tablet spironolactone 100 mg tablet TK 1 T PO QD FOR ACNE Active DULoxetine DR (CYMBALTA) 60 mg capsule Take 1 capsule (60 mg total) by mouth daily 2 Active mesalamine (LIALDA) 1.2 gram EC tablet Take 3 tablets (3.6 g total) by mouth daily 2 Active diazePAM (VALIUM) 5 mg tabletIndicati ons:anxiety,Pr e-procedure and procedural anxiety Take 1 tablet (5 mg total) by mouth as needed for anxiety (Prior to procedure) Prior to procedure, may take one tablet AFTER signing 1st consent form in office. If needed, may take a second tablet prior to procedure. 2 tablet 4 Active Active Problems Problem Noted Date Diagnosed Date Abnormal MRI, breast 04/18/2023 Encounters Date Type Department Care Team Description 03/27/2024 1:37 PM REGULATORY LEAD - 03/27/2024 11:59 PM REGULATORY LEAD Hospital Encounter [facility] - Breast Imaging [address] [facility] [address] [place] [address] Breast cancer screening, high risk patient; Abnormal MRI, breast Discharge Disposition: Discharge to home or self care 03/27/2024 1:30 PM REGULATORY LEAD Office Visit [facility] [address] [place] [address] Tawnya Hammer NP At high risk for breast cancer (Primary Dx); Mass of left breast, unspecified quadrant; Family history of breast cancer in first degree relative; Encounter for screening mammogram for high-risk patient from Last 3 Months Surgical History Surgery Date Site/Laterality Comments OOPHERECTOMY BREAST BIOPSY 05/04/2023 Right Family History Medical History Relation Name Comments Breast cancer Cousin [address] n Melanoma Father Colon cancer Father's Sister Breast cancer Maternal Grandmother Breast cancer Mother Breast cancer Paternal Grandmother Relation Name Status Comments Cousin Alive Father Father's Sister Maternal Grandmother Mother Paternal Grandmother Social History Tobacco Use Types Packs/Day Years [...] on file Legal Sex Female 4:50 PM REGULATORY LEAD Gender Identity Not on file Sexual Orientation Not on file Obstetrics History Last Filed Vital Signs Vital Sign Reading Time Taken Comments Blood Pressure - - Pulse - - Temperature - - Respiratory Rate - - Oxygen Saturation - - Inhaled Oxygen Concentration - - Weight 61 kg (134 lb 6.4 oz) 03/27/2024 1:47 PM REGULATORY LEAD Height 167.6 cm (5' 6 ) 03/27/2024 1:47 PM REGULATORY LEAD Body Mass Index 21.69 03/27/2024 1:47 PM REGULATORY LEAD Plan of Treatment Health Maintenance Due Date Last Done Comments Cervical Cancer Screening 1983 Depression Screening 1983 Hepatitis C Screening 1983 Varicella Vaccines (1 of 2 - 13+ 2-dose series) 05/31/1996 Regular Well Visit/Exam 18-64 05/31/2001 Covid-19 Vaccine ( season) 2023 03/16/2021, 05/25/2020, 05/04/2020 Breast Cancer Screening-Mammogram 03/27/2025 03/27/2024 DTaP/Tdap/Td Vaccine (3 - Td or Tdap) 10/18/2025 10/19/2015, 12/17/2007, 05/19/1997 Hepatitis B Screening Completed 06/18/2001 , 05/22/2001, 01/15/2001 Influenza Vaccine Completed 02/07/2024, , 12/24/2020, Additional history exists HPV Vaccines Aged Out No longer eligi ble based on patient's age to complete this topic Pneumococcal vaccine <65 Aged Out No longer eligible based on patient's age to complete this topic Medical Devices Implanted Type Area Book Solicitor Device Identifier Shelf Expiration Date Model / Serial / Lot [employer] [facility] TrimHead Held High Mri Guided Rigid Deployment Device Cork Marker Breast Trimark Td 13-Mr - [id number] Implanted:Qty: 1 on 05/04/2023 at [facility] [employer] [id number] 04/10/2024 TRIMARK TD 13-MR / / [id number] Procedures Procedure Name Priority Date/Time Associated Diagnosis Comments SCREENING MAMMOGRAM BILATERAL W ALANNA Schedule Routine, Read Routine (OP Routine) 03/27/2024 2:29 PM REGULATORY LEAD Breast cancer screening, high risk patient Abnormal MRI, breast from Last 3 Months Results * Screening Mammogram Bilateral W Alanna (03/27/2024 2:29 PM REGULATORY LEAD) Anatomical Region Laterality Modality Breast Bilateral Mammography Narrative 03/28/2024 1:47 PM REGULATORY LEAD Mammogram Technique: Bilateral Digital Breast Tomosynthesis, Bilateral C-view 2D Screening mammogram. Views obtained: bilateral craniocaudal and bilateral mediolateral oblique. Computer Aided Detection was performed. Mammogram Findings: No prior imaging studies are available for comparison. The breasts are extremely dense, which lowers the sensitivity of mammography. There is no suspicious abnormality in either breast. There are no significant changes from the prior study. There is no suspicious abnormality in either breast. Impression: There is no mammographic evidence of malignancy. Annual screening mammography is recommended. Consider breast MRI for supplemental screening given the patient's extremely dense breast tissue. OVERALL FINAL ASSESSMENT: BI-RADS CATEGORY 2: Benign. Procedure Note Janine Sims MD - 03/28/2024 Mammogram Technique: Bilateral Digital Breast Tomosynthesis, Bilateral C-view 2D Screening mammogram. Views obtained: bilateral craniocaudal and bilateral mediolateral oblique. Computer Aided Detection was performed. Mammogram Findings: No prior imaging studies are available for comparison. The breasts are extremely dense, which lowers the sensitivity of mammography. There is no suspicious abnormality in either breast. There are no significant changes from the prior study. There is no suspicious abnormality in either breast. Impression: There is no mammographic evidence of malignancy. Annual screening mammography is recommended. Consider breast MRI for supplemental screening given the patient's extremely dense breasttissue. OVERALL FINAL ASSESSMENT: BI-RADS CATEGORY 2: Benign. Jessica Coelho NP IMG MAMMO PROCEDURES Fin al Result from Last 3 Months Insurance [employer] Care Teams Hand Tile Maker Relationship Specialty Start Date End Date Lang De León MD [address] [facility] [address] [place] [address] PCP - General Family Medicine 03/08/23 Jessica Coelho NP [address] [facility] [address] [place] [address] Nurse Practitioner Nurse Practitioner 04/18/23 Kristine Xavier MD [address] [facility] [address] [place] [address] Referring Physician Gynecology 05/24/23
--- OUTSIDE RECORDS SUMMARY | 2024-05-24 10:48 | XMS_ITS | Encounter Summary ---
Author Organization [facility] Healthcare Address [address] [place] [address] Care Team Providers Care Hat Measurer Name Role Phone Unavailable Primary Care Provider Unavailabl e Reason for Visit * Diagnostic Imaging (Routine) - Closed Specialty Diagnoses / Procedures Referred By Anatoliy t Referred To Contact Procedures Breast Imaging Screening Outside Reference Transcribed Order, Provider Referral ID Status Reason Start Date Expiration Date Visits Re quested Visits Authorized [id number] Closed 03/20/2023 04/18/2024 1 1 Encounter Details Date Type Department Care Team (Late st Contact Info) Description 05/19/2014 Hospital Encounter [facility] [address] [place] [address] [phone] Social History Tobacco Use Types Packs/Day Years [...] on file Legal Sex Female 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 Never 04/18/2023 9:14 AM CROP FARM HELPER Aydee Brooks CMA documented as of this encounter Plan of Treatment Not on file documented as of this encounter Procedures Procedure Name Priority Date/Time Associated Diagnosis Comments BREAST IMAGING MG SCREENING OUTSIDE REFERENCE Routine 05/19/2014 12:00 AM CDT documented in this encounter Results * Breast Imaging Screening Outside Reference (05/19/2014 12:00 AM CDT) Impressions [facility]_MAMMO[facility] - 03/20/2023 10:38 AM CROP FARM HELPER These images are for Reference purposes only and have not been reviewed by [facility] Radiology. There will be no report generated by a [facility] Radiologist. Narrative [facility]_MAMMO[facility] - 03/20/2023 10:38 AM CROP FARM HELPER EXAMINATION: Images For Reference Purposes Only us Provider Transcribed Order IMG MAMMO PROCEDURES Final Result RAD_MAMMO_[facility] documented in this encounter Visit Diagnoses Not on filedocumented in this encounter
--- OUTSIDE RECORDS SUMMARY | 2024-05-24 10:48 | XMS_ITS | Referral Summary ---
Author Organization [facility] Address [address] [place] [address] Care Team Providers Care Bisque Tile Burner Name Role Phone Lang De León MD Primary Care Provider Jessica Coelho NP Unavailable [phone] Kristine Xavier MD Unavailable [phone] Encounters Date Type Department Care Team Description 03/27/2024 1:37 PM BLADDER TRIMMER - 03/27/2024 11:59 PM BLADDER TRIMMER Hospital Encounter [facility] - Breast Imaging [address] [place] [phone] Breast cancer screening, high risk patient; Abnormal MRI, breast Discharge Disposition: Discharge to home or self care 03/27/2024 1:30 PM BLADDER TRIMMER Office Visit [facility] Surgery [address] [place] [phone] Tawnya Hammer NP At high risk for breast cancer (Primary Dx); Mass of left breast, unspecified quadrant; Family history of breast cancer in first degree relative; Encounter for screening mammogram for high-risk patient from Last 3 Months Allergies No known active allergies Medications spironolactone [...] Date Diagnosed Date Abnormal MRI, breast 04/18/2023 Social History Tobacco Use Types Packs/Day Years Used Date Smoking Tobacco: Never Smokeless Tobacco: Never AUDIT-C Answer Date Recorded Q1: How often do you have a drink containing alcohol? Never 04/18/2023 Q2: How many drinks containi ng alcohol do you have on a typical day when you are drinking? Patient does not drink 4 Q3: How often do you have si x or more drinks on one occasion? Never 04/18/2023 Comments No Sex and Gender Information Value Date Recorded Sex Assigned at Not on file Legal Sex Female 4:50 PM BLADDER TRIMMER Gender Identity Not on file Sexual Orientation Not on file Last Filed Vital Signs Vital Sign Reading Time Taken Comments Blood Pressure - - Pulse - - Temperature - - Respiratory Rate - - Oxygen Saturation - - Inhaled Oxygen Concentration - - Weight 61 kg (134 lb 6.4 oz) 03/27/2024 1:47 PM BLADDER TRIMMER Height 167.6 cm (5' 6 ) 03/27/2024 1:47 PM BLADDER TRIMMER Body Mass Index 21.69 03/27/2024 1:47 PM BLADDER TRIMMER Plan of Treatment Not on file Medical Devices Implanted Type Area Cane Loader Device Identifier Shelf Expiration Date Model / Serial / Lot [employer] Mri Guided Rigid Deployment Device Cork Marker Breast [employer]One Rewardsark Td 13-Mr - [id number] Implanted:Qty: 1 on 05/04/2023 at [facility] [employer] [id number] 04/10/2024 MachinioARK TD 13-MR / / [id number] Procedures Procedure Name Priority Date/Time Associated Diagnosis Comments SCREENING MAMMOGRAM BILATERAL W ALANNA Schedule Routine, Read Routine (OP Routine) 03/27/2024 2:29 PM BLADDER TRIMMER Breast cancer screening, high risk patient Abnormal MRI, breast from Last 3 Months Results * Screening Mammogram Bilateral W Alanna (03/27/2024 2:29 PM BLADDER TRIMMER) Anatomical Region Laterality Modality Breast Bilateral Mammography Narrative 03/28/2024 1:47 PM BLADDER TRIMMER Mammogram Technique: Bilateral Digital Breast Tomosynthesis, Bilateral [...] al Result from Last 3 Months Insurance CIGNA CIGNA Care Teams Bisque Tile Burner Relationship Specialty Start Date End Date Lang De León MD [address] [facility] [address] [place] [address] PCP - General Family Medicine 03/08/23 Jessica Coelho NP [address] [facility] [address] [place] [address] Nurse Practitioner Nurse Practitioner 04/18/23 Kristine Xavier MD [address] [facility] [address] [place] [address] Referring Physician Gynecology 05/24/23
--- OUTSIDE RECORDS SUMMARY | 2024-05-24 10:48 | XMS_ITS | Clinical Summary ---
Author Organization [facility] Address [address] [place] [address] Care Team Providers Care Advertising Layout Worker Name Role Phone Lang De León MD Primary Care Provider [phone] Source Comments [facility],non-owned Affiliates and Associated Physician Practices is amultiple site organization consisting of ambulatory clinics and hospital sitesin [place], [place], [place] and [place]. This disclosure is being madepursuant to the Care Everywhere program and may not contain all information available regarding this patient. Last updated 17.[facility] Allergies No known active allergies Immunizations Name Administration Dates Next Due INFLUENZA VACCINE, QUADR. (F LUZONE; FLULAVAL; FLUARIX; AFLURIA QUADRIVALENT; 6MO+), 0.5 ML (IIV4) 01/05/2018 Social History Tobacco Use Types Packs/Day Years Used Date Smoking Tobacco: Never Assessed Sex and Gender Information Value Date Recorded Sex Assigned at Not on file Gender Identity Not on file Sexual Orientation Not on file Plan of Treatment Health Maintenance Due Date Last Done Comments LIPID TESTING 1983 MAMMOGRAM 1983 PAP SMEAR 1983 HIV SCREENING 05/31/1998 HEPATITIS C SCREENING 05/27/2001 DTAP/TDAP/TD VACCINES (1 - Tdap) 05/31/2002 HEPATITIS B VACCINE (1 of 3 - 19+ 3-dose series) 05/31/2002 COVID-19 VACCINE ( - 2023-2 5 season) 2023 INFLUENZA VACCINE (#1) 2023 01/05/2018 DEPRESSION SCREENING 03/05/2024 ZOSTER VACCINE (1 of 2) 05/31/2033 HIB VACCINE Aged Out No longer eligi ble based on patient's age to complete this topic HPV VACCINE Aged Out No longer eligi ble based on patient's age to complete this topic MENINGOCOCCAL (Group B) VACC INE SHARED DECISION-MAKING Aged Out No longer eligibl e based on patient's age to complete this topic MENINGOCOCCAL GROUPS A/C/Y/W VACCINE Aged Out No longer eligible b ased on patient's age to complete this topic PNEUMOCOCCAL VACCINE Aged Out No long er eligible based on patient's age to complete this topic Care Teams Advertising Layout Worker Relationship Specialty Start Date End Date Lang De León MD [address] [place] [address] PCP - General 08/13/17
[2024-05-24 11:08] LABS: Hematocrit 41.5 % (37.0-47.0); Hemoglobin 13.8 g/dL (12.0-15.0); Mean Corpuscular HGB Conc 33.3 g/dl (32-36); Mean Corpuscular Hemoglobin 30.6 pg (26-34); Mean Platelet Volume 9.2 fl (7.4-10.4); Platelet Count Result 245 k/mm3 (150-375); Red Blood Count 4.51 M/mm3 (4.2-5.4); Red Cell Distribution Width 12.4 % (11.5-14.5); White Blood Count 6.7 K/mm3 (4.5-10.0)
[2024-05-24 11:18] LABS: Alanine Aminotransferase 29 U/L (6-35); Albumin Level 4.4 g/dL (3.5-5.1); Alkaline Phosphatase 59 U/L (38-126); Anion Gap 5 mmol/L (4-12); Aspartate Amino Transferase 25 U/L (14-36); Bilirubin,Total 0.6 mg/dL (0.2-1.3); Blood Urea Nitrogen 15 mg/dL (7-17); Calcium 9.4 mg/dL (8.4-10.2); Carbon Dioxide 29 mmol/L (22-30); Chloride 104 mmol/L (98-107); Cholesterol 160 mg/dL (0-200); Estimated Glomerular Filt Rate > 60; Glucose 87 mg/dL (65-110); HDL Direct 57 mg/dL; Sodium 138 mmol/L (137-145); Triglycerides 88 mg/dL (<150)
[2024-05-24 11:20] LABS: Add Urine Microscopic? YES; Appearance Urine Cloudy (Clear); Bacteria Urine 4+ /hpf; Bilirubin Urine Negative (Negative); Blood Urine Negative (Negative); Color Urine Yellow (Yellow); Glucose Urine UA Negative (Negative); Ketones Urine Trace mg/dL (Negative); Leukocyte Esterase Ur Negative LEU/UL (Negative); Need Manual Microscopic Reviewed; Nitrate Urine Negative (Negative); Protein Urine Negative (Negative); RBC Urine 0-2 /hpf (0-2); Specific Grav Ur 1.022 (1.001-1.035); Squamous Epithelial Cell Urine Many /hpf (Few); Urobilinogen Urine 0.2 mg/dL (<2.0); pH Urine 5.5 (5.0-9.0)
[2024-05-24 11:29] LABS: LDL Cholesterol Direct 66 mg/dL
[2024-05-24 11:48] LABS: Thyroid Stimulating Hormone 0.733 uIU/mL (0.465-4.680)
[2024-05-24 12:42] LABS: Vitamin D 25 Hydroxy 79.7 ng/mL
[2024-05-24 13:38] LABS: Iron 110 ug/dL (37-170)
[2024-05-24 13:47] LABS: Percent Iron Saturation 34 % (20-50)
== END 2024-05-24 10:45 | disposition home or self-care (01) ==
LOC: ANHLAB 10:46
PROVIDERS: PCP Family Medicine; Visit Provider Physician Assistant Medical
DX: Z00.00 Encounter for general adult medical examination without abnormal findings (principal); F41.1 Generalized anxiety disorder; R53.83 Other fatigue; R07.9 Chest pain, unspecified
CPT/HCPCS: 36415; 80053; 80061; 81001; 82306; 82728; 83540; 83550; 84443; 85027

== ENCOUNTER 2024-09-08 09:02 | Outpatient (CLI) | payer OTHER, SELFPAY ==
--- OUTSIDE RECORDS SUMMARY | 2024-09-08 09:18 | XMS_ITS | Clinical Summary ---
Author Organization [facility] Address [address] [place] [address] Care Team Providers Care Communications Attendant Name Role Phone Lang De León MD Primary Care Provider [phone] Source Comments [facility],non-owned Affiliates and Associated Physician Practices is amultiple site organization consisting of ambulatory clinics and hospital sitesin [place], [place], [place] and [place]. This disclosure is being madepursuant to the Care Everywhere program and may not contain all information available regarding this patient. Last updated 17.[facility] Allergies No known active allergies Immunizations Immunization Administration Dates Next Due INFLUENZA VACCINE, QUADR. 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 Gender Identity Not on file Sexual Orientation Not on file Plan of Treatment Health Maintenance Due Date Last Done Comments LIPID TESTING 1983 MAMMOGRAM 1983 HIV SCREENING 05/31/1998 HEPATITIS C SCREENING 05/27/2001 DTAP/TDAP/TD VACCINES (1 - Tdap) 05/31/2002 HEPATITIS B VACCINE (1 of 3 - 19+ 3-dose series) 05/31/2002 COVID-19 VACCINE ( - 2023-2 5 season) 2023 DEPRESSION SCREENING 03/05/2024 INFLUENZA VACCINE (Season Ended) 2024 01/06/20 18 ZOSTER VACCINE (1 of 2) 05/31/2033 HIB [...] patient's age to complete this topic Insurance Care Teams Communications Attendant Relationship Specialty Start Date End Date Lang De León MD [address] [place] [address] PCP - General 08/13/17
--- OUTSIDE RECORDS SUMMARY | 2024-09-08 09:18 | XMS_ITS | Clinical Summary ---
Author Organization [facility] Address [address] [place] [address] Care Team Providers Care Furnace Utility Operator Name Role Phone Unavailable Primary Care Provider [...] hours as needed for Pain. 40 Tablet 10/18/19 24 5:01 PM CDT 024 Active HYDROcodone-acetamin ophen (NORCO) 5-325 mg tabletIndications:Ca psulitis of right temporomandibular joint Take 1 Tablet by mouth every 4 hours as needed for Pain, Moderate. Max Daily Amount: 6 Tablets 12 Tablet 10/18/19 24 5:01 PM CDT 024 Active acetaminophen (TYLENOL) 325 mg tablet Take 2 Tablets (650 mg) by mouth every 6 hours as needed for Pain. 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 90 Tablet 6 024 2024 Discontinued Active Problems Problem Noted Date Diagnosed Date Ulcerative colitis 11/22/2023 Constipation 11/22/2023 Encounters Date Type Department Care Team Description 08/19/2024 External Device Data ST[facility] ABSTRACTION Provider, Abstract 08/10/2024 Refill [facility] [address] [place] [address] Doreen Conte MD Ulcerative rectosigmoiditis without complication ([facility]) 08/05/2024 External Device Data STL ABSTRACTION Provider, Abstract 07/24/2024 External Device Data STL ABSTRACTION Provider, Abstract 07/22/2024 External Device Data STL ABSTRACTION Provider, Abstract [...] No 01/15/2024 Food Insecurity Answer Date Recorded Patient needs follow up regardin 06/26/2024 Transportation Needs Answer Date Record ed Patient needs follow up regardin 06/26/2024 Housing Stability Answer Date Recorded Social/Environmental Concerns No concerns Utility Needs Answer Date Recorded Patient needs follow up regardin 06/26/2024 Comments No Sex and Gender Information Value Date Recorded Sex Assigned at Not on file Legal Sex Female 8:51 AM CDT Gender Identity Not on file Sexual Orientation Not on file Last Filed Vital Signs Vital Sign Reading Time Taken Comments Blood Pressure 103/70 01/15/2024 10:00 AM SNOWBLOWER MECHANIC Pulse 78 01/15/2024 10:00 AM SNOWBLOWER MECHANIC Temperature 36.1 C (97 F) 01/15/2024 9:45 AM SNOWBLOWER MECHANIC Respiratory Rate 14 01/15/2024 10:00 AM SNOWBLOWER MECHANIC Oxygen Saturation 100% 01/15/2024 10:00 AM SNOWBLOWER MECHANIC Inhaled Oxygen Concentration - - Weight 59.4 kg (131 lb) 01/15/2024 8:48 AM SNOWBLOWER MECHANIC Height 167.6 cm (5' 6) 01/15/2024 8:48 AM SNOWBLOWER MECHANIC Body Mass Index 21.14 01/15/2024 8:48 AM SNOWBLOWER MECHANIC Plan of Treatment Health Maintenance Due Date Last Done Comments HEPATITIS B VACCINES (4 of 4 - 4-dose series) 07/17/2001 06/18/2001, 05/22/2001, 01/15/2001 HPV/Cotest (21-29) 05/31/2004 CERVICAL CANCER SCREENING 05/31/2013 HPV/Cotest (30-65) 05/31/2013 PAP SMEAR 05/31/2013 DTAP/TDAP/TD VACCINES (3 - Td or Tdap) 12/16/2017 12/17/2007, 05/19/1997 BREAST CANCER SCREENING 2023 INFLUENZA VACCINE (#1) 2024 , 01/05/2018 HPV VACCINES Aged Out No longer eligi ble based on patient's age to complete this topic Insurance [employer] OPEN ACCESS HMO RX [employer] RX Member Subscriber Plan / Payer (Ef fective 2023-Present) Name:Maicol Ozuna Relation to Subscriber:Self Name:Maicol Ozuna Subscriber ID:Not on file Payer ID:Not on file Type:RX Commercial Address: [address] Advance Directives For more information, please contact: [phone] * Full Code (Latest Code Status on File) Date Activated Date Inactivated Comments 01/15/2024 8:45 AM 01/15/2024 12:09 PM * Full Code Date Activated Date Inactivated Comments 10/18/2023 11:42 AM 10/18/2023 9:10 PM
--- OUTSIDE RECORDS SUMMARY | 2024-09-08 09:18 | XMS_ITS | Encounter Summary ---
Author Organization [facility] Healthcare Address [address] [place] [address] Care Team Providers Care Editor Producer Name Role Phone Unavailable Primary Care Provider Unavailabl e Reason for Visit * Diagnostic Imaging (Routine) - Closed Specialty Diagnoses / Procedures Referred By Anatoliy t Referred To Contact Procedures Breast Imaging US Outside Reference Transcribed Order, Provider Referral ID Status Reason Start Date Expiration Date Visits Re quested Visits Authorized [id number] Closed 03/20/2023 04/18/2024 1 1 Encounter Details Date Type Department Care Team (Late st Contact Info) Description 04/28/2015 Hospital Encounter [facility]) [address] [place] [address] [phone] Social History Tobacco Use Types Packs/Day Years [...] on file Legal Sex Female 4:50 PM PATIENT CLERICAL ASSISTANT Gender Identity Not on file Sexual Orientation [...] Patient does not drink 04/18/2023 9:14 AM PATIENT CLERICAL ASSISTANT Aydee Brooks CMA Q3: How often do you have six or more drinks on one occasion? Never 04/18/2023 9:14 AM PATIENT CLERICAL ASSISTANT Aydee Brooks CMA documented as of this encounter Plan of Treatment Not on file documented as of this encounter Procedures Procedure Name Priority Date/Time Associated Diagnosis Comments BREAST IMAGING US OUTSIDE REFERENCE Routine 04/28/2015 12:00 AM PATIENT CLERICAL ASSISTANT documented in this encounter Results * Breast Imaging US Outside Reference (04/28/2015 12:00 AM PATIENT CLERICAL ASSISTANT) Impressions [facility]MO[facility] - 03/20/2023 10:37 AM PATIENT CLERICAL ASSISTANT These images are for Reference purposes only and have not been reviewed by [facility] Radiology. There will be no report generated by a [facility] Radiologist. Narrative [facility]_MAMMO[facility] - 03/20/2023 10:37 AM PATIENT CLERICAL ASSISTANT EXAMINATION: Images For Reference Purposes Only us Provider Transcribed Order IMG MAMMO PROCEDURES Final Result [facility]MO[facility] documented in this encounter Visit Diagnoses Not on filedocumented in this encounter
--- OUTSIDE RECORDS SUMMARY | 2024-09-08 09:18 | XMS_ITS | Clinical Summary ---
Author Organization [facility] Address [address] [place] [address] Care Team Providers Care Home Planning Consultant Salesperson Name Role Phone Lang De León MD Primary Care Provider Jessica Coelho NP Unavailable [phone] Kristine Xavier MD Unavailable [phone] Allergies No known active allergies Medications spironolactone [...] Date Diagnosed Date Abnormal MRI, breast 04/18/2023 Surgical History Surgery Date Site/Laterality Comments OOPHERECTOMY [...] on file Legal Sex Female 4:50 PM SHAPE HAND Gender Identity Not on file Sexual Orientation Not on file Obstetrics History Last Filed Vital Signs Vital Sign Reading Time Taken Comments Blood Pressure - - Pulse - - Temperature - - Respiratory Rate - - Oxygen Saturation - - Inhaled Oxygen Concentration - - Weight 61 kg (134 lb 6.4 oz) 03/27/2024 1:47 PM SHAPE HAND Height 167.6 cm (5' 6) 03/27/2024 1:47 PM SHAPE HAND Body Mass Index 21.69 03/27/2024 1:47 PM SHAPE HAND Plan of Treatment Health Maintenance Due Date [...] this topic Medical Devices Implanted Type Area It Network Administrator Device Identifier Shelf Expiration Date Model / Serial / Lot Genetic Technologies [facility] Trimark Mri Guided Rigid Deployment Device Cork Marker Breast Yudith Td 13-Mr - [id number] Implanted:Qty: 1 on 05/04/2023 at [facility] [employer] [facility] [id number] 04/10/2024 YUDITH TD 13-MR / / [id number] Procedures Procedure Name Priority Date/Time Associated Diagnosis Comments SCREENING MAMMOGRAM BILATERAL W ALANNA Schedule Routine, Read Routine (OP Routine) 03/27/2024 2:29 PM SHAPE HAND Breast cancer screening, high risk patient Abnormal MRI, breast from Last 3 Months or Most Recently Relevant to Health Maintenance Results * Screening Mammogram Bilateral W Alanna (03/27/2024 2:29 PM SHAPE HAND) Anatomical Region Laterality Modality Breast Bilateral Mammography Narrative 03/28/2024 1:47 PM SHAPE HAND Mammogram Technique: Bilateral Digital Breast Tomosynthesis, Bilateral [...] Fin al Result from Last 3 Months or Most Recently Relevant to Health Maintenance Insurance CIG Care Teams Home Planning Consultant Salesperson Relationship Specialty Start Date End Date Lang De León MD [address] [address] PCP - General Family Medicine 03/08/23 Jessica Coelho NP [address] [place] [address] Nurse Practitioner Nurse Practitioner 04/18/23 Kristine Xavier MD [address] [facility] [address] [place] [address] Referring Physician Gynecology 05/24/23
--- OUTSIDE RECORDS SUMMARY | 2024-09-08 09:18 | XMS_ITS | Referral Summary ---
Author Organization [facility] Address [address] [place] [address] Care Team Providers Care General Maintenance Technician Name Role Phone Lang De León MD Primary Care Provider Jessica Coelho NP Unavailable [phone] Kristine Xavier MD Unavailable [phone] Allergies No known active allergies Medications spironolactone [...] on file Legal Sex Female 4:50 PM TOUCH UP CARVER Gender Identity Not on file Sexual Orientation Not on file Last Filed Vital Signs Vital Sign Reading Time Taken Comments Blood Pressure - - Pulse - - Temperature - - Respiratory Rate - - Oxygen Saturation - - Inhaled Oxygen Concentration - - Weight 61 kg (134 lb 6.4 oz) 03/27/2024 1:47 PM TOUCH UP CARVER Height 167.6 cm (5' 6) 03/27/2024 1:47 PM TOUCH UP CARVER Body Mass Index 21.69 03/27/2024 1:47 PM TOUCH UP CARVER Plan of Treatment Not on file Medical Devices Implanted Type Area Underwater Hunter Trapper Device Identifier Shelf Expiration Date Model / Serial / Lot Drug Response Dx Mri Guided Rigid Deployment Device Cork Marker Breast [employer] Latin [employer]ark Td 13-Mr - [id number] Implanted:Qty: 1 on 05/04/2023 at [facility] [employer] [id number] 04/10/2024 TRIMARK TD 13-MR / / [id number] Procedures Procedure Name Priority Date/Time Associated Diagnosis Comments SCREENING MAMMOGRAM BILATERAL W ALANNA Schedule Routine, Read Routine (OP Routine) 03/27/2024 2:29 PM TOUCH UP CARVER Breast cancer screening, high risk patient Abnormal MRI, breast from Last 3 Months or Most Recently Relevant to Health Maintenance Results * Screening Mammogram Bilateral W Alanna (03/27/2024 2:29 PM TOUCH UP CARVER) Anatomical Region Laterality Modality Breast Bilateral Mammography Narrative 03/28/2024 1:47 PM TOUCH UP CARVER Mammogram Technique: Bilateral Digital Breast Tomosynthesis, Bilateral [...] Most Recently Relevant to Health Maintenance Insurance [facility] Care Teams General Maintenance Technician Relationship Specialty Start Date End Date Lang De León MD [address] [place] [address] PCP - General Family Medicine 03/08/23 Jessica Coelho NP [address] [place] [address] Nurse Practitioner Nurse Practitioner 04/18/23 Kristine Xavier MD [address] [facility] [address] [place] [address] Referring Physician Gynecology 05/24/23
--- OUTSIDE RECORDS SUMMARY | 2024-09-08 09:18 | XMS_ITS | Encounter Summary ---
Author Organization [facility] Address [address] [place] [address] Care Team Providers Care Heel Seat Trimmer Name Role Phone Unavailable Primary Care Provider Unavailabl e Reason for Visit * Diagnostic Imaging (Routine) - Closed Specialty Diagnoses / Procedures Referred By Anatoliy t Referred To Contact Procedures Breast Imaging Screening Outside Reference Transcribed Order, Provider Referral ID Status Reason Start Date Expiration Date Visits Re quested Visits Authorized [id number] Closed 03/20/2023 04/18/2024 1 1 Encounter Details Date Type Department Care Team (Late st Contact Info) Description 05/19/2014 Hospital Encounter [facility] [address] [place] [id number] Social History Tobacco Use Types Packs/Day Years [...] on file Legal Sex Female 4:50 PM WEARING APPAREL ASSEMBLER Gender Identity Not on file Sexual Orientation Not on file documented as of this encounter Functional Status * Audit-C Score Answer Date of Assessment Author 0 04/18/2023 9:14 AM Adyee John CMA * Question Answer Date of Assessment Author Q1: How often do you have a drink containing alcohol? Never 04/18/2023 9:14 AM Aydee John CMA Q2: How many drinks containing alcohol do you have on a typical day when you are drinking? Patient does not drink 04/18/2023 9:14 AM WEARING APPAREL ASSEMBLER Aydee Brooks CMA Q3: How often do you have six or more drinks on one occasion? Never 04/18/2023 9:14 AM WEARING APPAREL ASSEMBLER Aydee Brooks CMA documented as of this encounter Plan of Treatment Not on file documented as of this encounter Procedures Procedure Name Priority Date/Time Associated Diagnosis Comments BREAST IMAGING MG SCREENING OUTSIDE REFERENCE Routine 05/19/2014 12:00 AM CDT documented in this encounter Results * Breast Imaging Screening Outside Reference (05/19/2014 12:00 AM CDT) Impressions [facility]MO[facility] - 03/20/2023 10:38 AM WEARING APPAREL ASSEMBLER These images are for Reference purposes only and have not been reviewed by [facility] Radiology. There will be no report generated by a [facility] Radiologist. Narrative [facility] - 03/20/2023 10:38 AM WEARING APPAREL ASSEMBLER EXAMINATION: Images For Reference Purposes Only us Provider Transcribed Order IMG MAMMO PROCEDURES Final Result [facility]_MAMMO[facility] documented in this encounter Visit Diagnoses Not on filedocumented in this encounter
--- OUTSIDE RECORDS SUMMARY | 2024-09-08 09:18 | XMS_ITS | Continuity of Care Document ---
Author Organization [facility] Address [address] [place] [address] Phone Care Team Providers Care Sign Language Instructor Name Role Phone Unavailable Unavailable Unavailable Advance Directives Directive Yes / No Effective Date File Name No Information Encounters Encounter Description Practice Location Reason(s) For Visit Diagnoses Date Provider Providers Copied on Encounter [facility], [id number], [place], [place], [id number], tel:[phone] [facility] No Information 9 No Information Referring Provider: KATYA BEAR, [address], [place], [address]. tel:[phone] Family History Family Member Type Diagnosis Age At Onset No Information Payers Payer name Insurance type Covered democrat ID Authoriza tion(s) BS O [facility] [id number] Social History Type Description Quantity Date Captured Comments Sex Female Smoking Status No Information Chief Complaint And Reason For Visit No Information History Of Present Illness Encounter Date Complaint History Of Prese nt Illness No Information Instructions Date Instruction Additional Infor mation No Information Assessments Type Assessment Date No Information
--- NOTE | 2024-09-08 09:19 | EST_ITS ---
Patient Info Name: Lucy Hermosillo Age: 39 years : 1985 Gender: Female Ht: 66 in Wt: 130 lbs BSA: 1.66 m2 HR: 79 bpm BP: 110 / 77 mmHg Exam Date: 09/08/2024 9:19 AM Patient Status: O Admit Date: 09/08/2024 Exam Type: CA stress test treadmill A treadmill exercise stress test was performed. Staff Attending Provider: Betty Shah Exercise Technologist: Lanie Logan Exercise Physician: Yeyo Woodall DO Summary 1. 1. Negative Amish exercise stress test for ischemic ST changes by ECG criteria. 2. 2. Good functional capacity, achieving 12 METs of workload. 3. 3. Appropriate HR response to exercise. 4. 4. Appropriate HR recovery at 1 minute post exercise. 5. 5. No imaging with stress testing. 6. 6. Patient informed of the above results. Protocol: Amish Stress ECG Details Stage: REST Duration (min): 1 min : 0 sec Speed (mph): 0.0 Grade (%): 0 HR (bpm): 82 SBP (mmHg): --- DBP (mmHg): --- METS: --- Stage: REST Duration (min): 20 min : 54 sec Speed (mph): 0.0 Grade (%): 0 HR (bpm): 103 SBP (mmHg): 110 DBP (mmHg): 77 METS: --- Stage: STAGE 1 Duration (min): 1 min : 0 sec Speed (mph): 1.7 Grade (%): 10 HR (bpm): 102 SBP (mmHg): 110 DBP (mmHg): 77 METS: --- Stage: STAGE 1 Duration (min): 2 min : 0 sec Speed (mph): 1.7 Grade (%): 10 HR (bpm): 111 SBP (mmHg): 110 DBP (mmHg): 77 METS: --- Stage: STAGE 1 Duration (min): 3 min : 0 sec Speed (mph): 1.7 Grade (%): 10 HR (bpm): 106 SBP (mmHg): 119 DBP (mmHg): 64 METS: --- Stage: STAGE 2 Duration (min): 1 min : 0 sec Speed (mph): 2.5 Grade (%): 12 HR (bpm): 115 SBP (mmHg): 119 DBP (mmHg): 64 METS: --- Stage: STAGE 2 Duration (min): 2 min : 0 sec Speed (mph): 2.5 Grade (%): 12 HR (bpm): 115 SBP (mmHg): 125 DBP (mmHg): 70 METS: --- Stage: STAGE 2 Duration (min): 3 min : 0 sec Speed (mph): 2.5 Grade (%): 12 HR (bpm): 116 SBP (mmHg): 125 DBP (mmHg): 70 METS: --- Stage: STAGE 3 Duration (min): 1 min : 0 sec Speed (mph): 3.4 Grade (%): 14 HR (bpm): 124 SBP (mmHg): 128 DBP (mmHg): 66 METS: --- Stage: STAGE 3 Duration (min): 2 min : 0 sec Speed (mph): 3.4 Grade (%): 14 HR (bpm): 131 SBP (mmHg): 128 DBP (mmHg): 66 METS: --- Stage: STAGE 3 Duration (min): 3 min : 0 sec Speed (mph): 3.4 Grade (%): 14 HR (bpm): 139 SBP (mmHg): 141 DBP (mmHg): 65 METS: --- Stage: STAGE 4 Duration (min): 1 min : 0 sec Speed (mph): 4.2 Grade (%): 16 HR (bpm): 148 SBP (mmHg): 141 DBP (mmHg): 65 METS: --- Stage: STAGE 4 Duration (min): 1 min : 30 sec Speed (mph): 4.2 Grade (%): 16 HR (bpm): 157 SBP (mmHg): 141 DBP (mmHg): 65 METS: --- Stage: RECOVERY Duration (min): 0 min : 29 sec Speed (mph): 0.0 Grade (%): 0 HR (bpm): 152 SBP (mmHg): 126 DBP (mmHg): 68 METS: --- Stage: RECOVERY Duration (min): 1 min : 29 sec Speed (mph): 0.0 Grade (%): 0 HR (bpm): 100 SBP (mmHg): 126 DBP (mmHg): 68 METS: --- Stage: RECOVERY Duration (min): 2 min : 29 sec Speed (mph): 0.0 Grade (%): 0 HR (bpm): --- SBP (mmHg): 126 DBP (mmHg): 68 METS: --- Stage: RECOVERY Duration (min): 2 min : 50 sec Speed (mph): 0.0 Grade (%): 0 HR (bpm): --- SBP (mmHg): 126 DBP (mmHg): 68 METS: --- Rest HR: 103 bpm Peak HR: 158 bpm Rest Sys BP: 110 mmHg Peak Sys BP: 141 mmHg Max Pred HR: 179 bpm % Max Pred HR: 88 % Target HR: 152 bpm Max RPP: 22,278 bpm*mmHg Short Score: 3 Termination Reason: Reached target heart rate or workload Cardiac Symptoms: Shortness of breath Max ST Seg Deviation: -1.60 mm Total Time: 10 min : 30 sec Rest Ramos BP: 77 mmHg Peak Ramos BP: 65 mmHg Angina Score: None Total METS: 12.1 Resting ECG Sinus rhythm. Stress ECG No ST changes. Arrhythmias None. Report Signatures
== END 2024-09-08 09:03 | disposition home or self-care (01) ==
PROVIDERS: PCP Family Medicine; Visit Provider Physician Assistant Medical
DX: R07.9 Chest pain, unspecified (principal)
CPT/HCPCS: 93017

== ENCOUNTER 2024-10-21 08:40 | Outpatient (CLI) | payer OTHER, SELFPAY ==
--- NOTE | ~2024-10-21 | XR_ITS ---
EXAM/PROCEDURE: XR chest 2V - 10/21/2024 8:45 CDT HISTORY: 39 years old Female with R07.9 - Chest pain, unspecified TECHNIQUE: Two view(s) of the chest. COMPARISON: None available. FINDINGS: LUNGS/ PLEURA: No focal consolidation. No appreciable pneumothorax or large pleural effusion. HEART/ MEDIASTINUM: Heart appears normal in size. BONES: No acute osseous abnormality. OTHER: Visualized upper abdomen is unremarkable. IMPRESSION: No acute process. Reviewed, dictated and finalized at location A. IMPRESSION: No acute process.
== END 2024-10-21 08:41 | disposition home or self-care (01) ==
PROVIDERS: PCP Family Medicine; Visit Provider Physician Assistant Medical
DX: R07.9 Chest pain, unspecified (principal)
CPT/HCPCS: 71046

== ENCOUNTER 2025-02-13 01:18 | Emergency (ER) | payer OTHER, SELFPAY ==
--- OUTSIDE RECORDS SUMMARY | 2014-05-18 23:00 | XMS_ITS | Encounter Summary ---
Author Organization [facility] Healthcare Address [address] [place] [address] Care Team Providers Care Rn Neurosurgical Name Role Phone Unavailable Primary Care Provider Unavailabl e Reason for Visit * Diagnostic Imaging (Routine) - Closed Specialty Diagnoses / Procedures Referred By Contac t Referred To Contact Procedures Breast Imaging Screening Outside Reference Transcribed Order, Provider Referral ID Status Reason Start Date Expiration Date Visits Re quested Visits Authorized [id number] Closed 03/20/2023 04/18/2024 1 1 Encounter Details Date Type Department Care Team (Late st Contact Info) Description 05/19/2014 Hospital Encounter [facility] [address] [place] [address] [phone] Social History Tobacco Use Types Packs/Day Years Used Date Smoking Tobacco: Never Passive Smoke Exposure: Never Smokeless Tobacco: Never AUDIT-C Answer Date Recorded Q1: How often do you have a drink containing alcohol? Never 04/18/2023 Q2: How many drinks containi ng alcohol do you have on a typical day when you are drinking? Patient does not drink Q3: How often do you have si x or more drinks on one occasion? 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 Never 04/18/2023 9:14 AM Aydee John CMA Q2: How many drinks containing alcohol do you have on a typical day when you are drinking? Patient does not drink 04/18/2023 9:14 AM Aydee John CMA Q3: How often do you have six or more drinks on one occasion? Never 04/18/2023 9:14 AM Aydee John CMA * BP Location Answer Date of Assessment Author Left arm 02/09/2025 9:00 AM MOBILE HEALTH VEHICLE OPERATOR Caitlyn Sheikh CMA documented as of this encounter Plan of Treatment Not on file documented as of this encounter Procedures Procedure Name Priority Date/Time Associated Diagnosis Comments BREAST IMAGING MG SCREENING OUTSIDE REFERENCE Routine 05/19/2014 12:00 AM CDT documented in this encounter Results * Breast Imaging Screening Outside Reference (05/19/2014 12:00 AM CDT) Impressions [facility] - 03/20/2023 10:38 AM MOBILE HEALTH VEHICLE OPERATOR These images are for Reference purposes only and have not been reviewed by [facility] Radiology. There will be no report generated by a [facility] Radiologist. Narrative [facility] - 03/20/2023 10:38 AM MOBILE HEALTH VEHICLE OPERATOR EXAMINATION: Images For Reference Purposes Only us Provider Transcribed Order IMG MAMMO PROCEDURES Final Result [facility] documented in this encounter Visit Diagnoses Not on filedocumented in this encounter
--- OUTSIDE RECORDS SUMMARY | 2014-05-18 23:00 | XMS_ITS | Encounter Summary ---
Author Organization [facility] Healthcare Address [address] [place] [address] Care Team Providers Care Pbx Wire Chief Name Role Phone Unavailable Primary Care Provider Unavailabl e Reason for Visit * Diagnostic Imaging (Routine) - Closed Specialty Diagnoses / Procedures Referred By Contac t Referred To Contact Procedures Breast Imaging Screening Outside Reference Transcribed Order, Provider Referral ID Status Reason Start Date Expiration Date Visits Re quested Visits Authorized [id number] Closed 03/20/2023 04/18/2024 1 1 Encounter Details Date Type Department Care Team (Late st Contact Info) Description 05/19/2014 Hospital Encounter [facility] [address] [place] [address] [phone] Social History Tobacco Use Types Packs/Day Years [...] on file 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 Gender Identity Not on file Sexual Orientation [...] Assessment Author Left arm 02/09/2025 9:00 AM BRIDGE OPENER Caitlyn Sheikh CMA documented as of this encounter Plan of Treatment Not on file documented as of this encounter Procedures Procedure Name Priority Date/Time Associated Diagnosis Comments BREAST IMAGING MG SCREENING OUTSIDE REFERENCE Routine 05/19/2014 12:00 AM CDT documented in this encounter Results * Breast Imaging Screening Outside Reference (05/19/2014 12:00 AM CDT) Impressions [facility] - 03/20/2023 10:38 AM BRIDGE OPENER These images are for Reference purposes only and have not been reviewed by [facility] Radiology. There will be no report generated by a [facility] Radiologist. Narrative [facility] - 03/20/2023 10:38 AM BRIDGE OPENER EXAMINATION: Images For Reference Purposes Only us Provider Transcribed Order IMG MAMMO PROCEDURES Final Result [facility] documented in this encounter Visit Diagnoses Not on filedocumented in this encounter
--- OUTSIDE RECORDS SUMMARY | 2015-04-28 | XMS_ITS | Encounter Summary ---
Author Organization [facility] Healthcare Address [address] [place] [address] Care Team Providers Care Fire Extinguisher Tester Name Role Phone Unavailable Primary Care Provider Unavailabl e Reason for Visit * Diagnostic Imaging (Routine) - Closed Specialty Diagnoses / Procedures Referred By Contac t Referred To Contact Procedures Breast Imaging US Outside Reference Transcribed Order, Provider Referral ID Status Reason Start Date Expiration Date Visits Re quested Visits Authorized [id number] Closed 03/20/2023 04/18/2024 1 1 Encounter Details Date Type Department Care Team (Late st Contact Info) Description 04/28/2015 Hospital Encounter [facility] [address] [place] [address] [phone] Social History Tobacco Use Types Packs/Day Years [...] on file Legal Sex Female 4:50 PM STEWARD/STEWARDESS WINE Gender Identity Not on file Sexual Orientation Not on file documented as of this encounter Functional Status * BP Location Answer Date of Assessment Author Left arm 02/09/2025 9:00 AM Lena Hernandez CMA * AUDIT-C Score Answer Date of Assessment Author 0 04/18/2023 9:14 AM STEWARD/STEWARDESS WINE Aydee Brooks CMA * Alcohol Use Question Answer Date of Assessment Author Q1: How often do you have a drink containing alcohol? Never 04/18/2023 9:14 AM STEWARD/STEWARDESS WINE Aydee Brooks CMA Q2: How many drinks containing alcohol do you have on a typical day when you are drinking? Patient does not drink 04/18/2023 9:14 AM STEWARD/STEWARDESS WINE Aydee Brooks CMA Q3: How often do you have six or more drinks on one occasion? Never 04/18/2023 9:14 AM STEWARD/STEWARDESS WINE Aydee Brooks CMA * BP Location Answer Date of Assessment Author Left arm 02/09/2025 9:00 AM STEWARD/STEWARDESS WINE Lena Sheikh CMA documented as of this encounter Plan of Treatment Not on file documented as of this encounter Procedures Procedure Name Priority Date/Time Associated Diagnosis Comments BREAST IMAGING US OUTSIDE REFERENCE Routine 04/28/2015 12:00 AM STEWARD/STEWARDESS WINE documented in this encounter Results * Breast Imaging US Outside Reference (04/28/2015 12:00 AM STEWARD/STEWARDESS WINE) Impressions [facility] - 03/20/2023 10:37 AM STEWARD/STEWARDESS WINE These images are for Reference purposes only and have not been reviewed by [facility] Radiology. There will be no report generated by a [facility] Radiologist. Narrative [facility] - 03/20/2023 10:37 AM STEWARD/STEWARDESS WINE EXAMINATION: Images For Reference Purposes Only us Provider Transcribed Order IMG MAMMO PROCEDURES Final Result [facility] documented in this encounter Visit Diagnoses Not on filedocumented in this encounter
--- OUTSIDE RECORDS SUMMARY | 2015-04-28 | XMS_ITS | Encounter Summary ---
Author Organization [facility] Healthcare Address [address] [place] [address] Care Team Providers Care Narrative Writer Name Role Phone Unavailable Primary Care Provider Unavailabl e Reason for Visit * Diagnostic Imaging (Routine) - Closed Specialty Diagnoses / Procedures Referred By Contac t Referred To Contact Procedures Breast Imaging US Outside Reference Transcribed Order, Provider Referral ID Status Reason Start Date Expiration Date Visits Re quested Visits Authorized [id number] Closed 03/20/2023 04/18/2024 1 1 Encounter Details Date Type Department Care Team (Late st Contact Info) Description 04/28/[address] 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 Never 04/18/2023 9:14 AM RADIOACTIVITY TECHNICIAN Aydee Brooks CMA Q2: How many drinks containing alcohol do you have on a typical day when you are drinking? Patient does not drink 04/18/2023 9:14 AM RADIOACTIVITY TECHNICIAN Aydee Brooks CMA Q3: How often do you have six or more drinks on one occasion? Never 04/18/2023 9:14 AM RADIOACTIVITY TECHNICIAN Aydee Brooks CMA * BP Location Answer Date of Assessment Author Left arm 02/09/2025 9:00 AM RADIOACTIVITY TECHNICIAN Lena Sheikh CMA documented as of this encounter Plan of Treatment Not on file documented as of this encounter Procedures Procedure Name Priority Date/Time Associated Diagnosis Comments BREAST IMAGING US OUTSIDE REFERENCE Routine 04/28/2015 12:00 AM RADIOACTIVITY TECHNICIAN documented in this encounter Results * Breast Imaging US Outside Reference (04/28/2015 12:00 AM RADIOACTIVITY TECHNICIAN) Impressions [facility] - 03/20/2023 10:37 AM RADIOACTIVITY TECHNICIAN These images are for Reference purposes only and have not been reviewed by [facility] Radiology. There will be no report generated by a [facility] Radiologist. Narrative [facility] - 03/20/2023 10:37 AM RADIOACTIVITY TECHNICIAN EXAMINATION: Images For Reference Purposes Only us Provider Transcribed Order IMG MAMMO PROCEDURES Final Result [facility] documented in this encounter Visit Diagnoses Not on filedocumented in this encounter
--- OUTSIDE RECORDS SUMMARY | 2018-06-17 07:50 | XMS_ITS | Continuity of Care Document ---
Author Organization [facility] Address [address] [place] [address] Phone Care Team Providers Care Store Shopper Name Role Phone Unavailable Unavailable Unavailable Advance Directives Directive Yes / No Effective Date File Name No Information Encounters Encounter Description Practice Location Reason(s) For Visit Diagnoses Date Provider Providers Copied on Encounter [facility], [id number], [place], [place], [id number], tel:[phone] [facility] No Information 9 No Information Referring Provider: KATYA BEAR, [address], [place], [address]. tel:[phone] Family History Family Member Type Diagnosis Age At Onset No Information Payers Payer name Insurance type Covered constitution party ID Authoriza tion(s) BS O [facility] [id number] Social History Type Description Quantity Date Captured Comments Sex Female Smoking Status No Information Chief Complaint And Reason For Visit No Information History Of Present Illness Encounter Date Complaint History Of Prese nt Illness No Information Instructions Date Instruction Additional Infor mation No Information Assessments Type Assessment Date No Information
--- OUTSIDE RECORDS SUMMARY | 2025-02-13 01:21 | XMS_ITS | Encounter Summary ---
Author Organization [facility] Address [address] [place] [address] Care Team Providers Care Room Service Waiter Name Role Phone Lang De León MD Primary Care Provider [phone] Encounter Details Date Type Department Care Team (Late st Contact Info) Description 12/30/2024 Results Follow-Up [facility] Leighton Arana [address] [facility] [address] [place] [address] [place] [address] [facility] [address] [place] [address] PATHOLOGY Social History Tobacco Use Types Packs/Day Years Used Date Smoking Tobacco: Never Smokeless Tobacco: Never Alcohol Use Standard Drinks/Week Comments Not Currently 0 (1 standard drink = 0.6 oz pur e alcohol) Feeling Safe Answer Date Recorded Are you in a relationship wi th someone who hurts you emotionally and/or physically? No 12/29/2024 Food Insecurity Answer Date Recorded Patient needs [...] on file documented as of this encounter Visit Diagnoses Not on filedocumented in this encounter Care Teams Room Service Waiter Relationship Specialty Start Date End Date Lang De León MD [address] [facility] [address] [facility] [address] [place] [address] PCP - General Family Practice 11/28/24 documented as of this encounter
--- OUTSIDE RECORDS SUMMARY | 2025-02-13 01:21 | XMS_ITS | Clinical Summary ---
Author Organization [facility] Address [address] [place] [address] Care Team Providers Care Fund Manager Name Role Phone Lang De León MD Primary Care Provider Jessica Coelho NP Unavailable [phone] Kristine Xavier MD Unavailable [phone] Allergies Active Allergy Reactions Criticality Noted Date Comments Hydrocodone Hives Medium 12/11/2023 Medications spironolactone (ALDACTONE) 100 mg tablet spironolactone 100 mg tablet TK 1 T PO QD FOR ACNE Active DULoxetine DR (CYMBALTA) 60 mg capsule Take 1 capsule (60 mg total) by mouth daily 09/20/19 22 Active mesalamine (LIALDA) 1.2 gram EC tablet Take 3 tablets (3.6 g total) by mouth daily 09/11/19 22 Active omeprazole (PriLOSEC) 20 mg capsule 01/02/20 25 Active ibuprofen (ADVIL,MOTRIN) 600 mg tablet Take 1 tablet (600 mg total) by mouth every 6 (six) hours as needed 10/18/19 24 Active diazePAM (VALIUM) 5 mg tabletIndicati ons:anxiety,Pr e-procedure and procedural anxiety Take 1 tablet (5 mg total) by mouth as needed for anxiety (Prior to procedure) Prior to procedure, may take one tablet AFTER signing 1st consent form in office. If needed, may take a second tablet prior to procedure. 2 tablet 04/18/19 24 025 Discontin ued(Patie nt Reported) Active Problems Problem Noted Date Diagnosed Date Ear pain, left 02/09/2025 Cyst of right parotid gland 02/09/2025 Acne 02/09/2025 Acute bronchospasm 02/09/2025 Acute strain of neck muscle 02/09/2025 Acute streptococcal pharyngitis 02/09/2025 Bacterial conjunctivitis 02/09/2025 Bloating 02/09/2025 Cough 02/09/2025 Irritable bowel syndrome wit h both constipation and diarrhea 02/09/2025 Irregular menses 02/09/2025 ADRIA (generalized anxiety disorder) 02/09/2025 Hyperhidrosis 02/09/2025 Impacted cerumen, right ear 02/09/2025 Influenza 02/09/2025 Insect bites 02/09/2025 Jaw pain 02/09/2025 Sigmoiditis 02/09/2025 Left sided colitis 02/09/2025 Sensation of fullness in right ear 02/09/2025 Pharyngitis 02/09/2025 Mucoid cyst, joint 02/09/2025 MDD (major depressive disord er), recurrent, in partial remission 02/09/2025 Lumbar spine strain 02/09/2025 Upper respiratory infection 02/09/2025 Constipation 11/22/2023 Ulcerative colitis 11/22/2023 Abnormal MRI, breast 04/18/2023 Encounters Date Type Department Care Team Description 02/09/2025 9:00 AM WELT RANDER - 02/09/2025 11:59 PM WELT RANDER Hospital Encounter [facility] - Breast Imaging [address] [place] [address] Breast pain Discharge Disposition: Discharge to home or self care 02/09/2025 8:45 AM WELT RANDER [facility] [address] [place] [address] [address] [place] [id number] Shaye Villar, SAROJ Pain of left breast (Primary Dx); Fibroadenoma of breast, left; At high risk for breast cancer; Family history of breast cancer in first degree relative 01/20/2025 Orders Only [facility] [address] [place] [address] [address] [place] [id number] Shaye Villar NP Breast pain (Primary Dx) from Last 3 Months Immunizations Immunization Administration Dates Next Due Hep A, Adult 06/05/2000 Hep B, Adolescent or Pediatric 06/18/2001,2001,01/15/2001 Influenza, Quadrivalent, Spl it, Preservative Free, Intramuscular 02/02/2022,12/24/2020,11/18/2018,01/05 Influenza, Trivalent, Preser vative Free, Intramuscular 02/07/2024,01/07/2017 Tdap 10/19/2015 Surgical History Surgery Date Site/Laterality Comments OOPHERECTOMY BREAST BIOPSY 05/04/2023 Right Benign BREAST BIOPSY 10/13/2024 Left Research study HRPO- benign fibroadenoma Medical History Medical History Date Comments BRCA1 negative BRCA2 negative Family History Medical History Relation Name Comments Breast cancer Cousin Maternal aunt' s dtr; estrogen driven Melanoma Father Colon cancer Father's Sister Breast cancer Maternal Grandmother Breast cancer Mother Breast cancer Paternal Grandmother Relation Name Status Comments Cousin Alive Father Father's Sister Maternal Grandmother Mother Alive Paternal Grandmother Social History Tobacco Use Types Packs/Day Years Used Date Smoking Tobacco: Never Passive Smoke Exposure: Never Smokeless Tobacco: Never Tobacco Cessation:Counseling Given: Not Answered AUDIT-C Answer Date Recorded Q1: How often [...] on file Legal Sex Female 4:50 PM WELT RANDER Gender Identity Not on file Sexual Orientation Not on file Obstetrics History Para Term AB IAB SAB Ectopic Multiple Livin g Live Births 2 1 Date Outcome GA Total Labor Labor/2nd/3rd Weight Sex Type Anes PTL Ariella A1 A5 Name Clin Last Filed Vital Signs Vital Sign Reading Time Taken Comments Blood Pressure 121/74 02/09/2025 9:00 AM WELT RANDER Pulse 87 02/09/2025 9:00 AM WELT RANDER Temperature 36.6 C (97.8 F) 02/09/2025 9:00 AM WELT RANDER Respiratory Rate 18 02/09/2025 9:00 AM WELT RANDER Oxygen Saturation 100% 02/09/2025 9:00 AM WELT RANDER Inhaled Oxygen Concentration - - Weight 61 kg (134 lb 6.4 oz) 02/09/2025 9:00 AM WELT RANDER Height 166.5 cm (5' 5.55) 02/09/2025 9:00 AM CS T Body Mass Index 21.99 02/09/2025 9:00 AM WELT RANDER Plan of Treatment Health Maintenance Due Date Last Done Comments Cervical Cancer Screening 1985 Depression Screening 1985 Hepatitis C Screening 1985 Varicella Vaccines (1 of 2 - 13+ 2-dose series) 05/31/1996 Regular Well Visit/Exam 18-64 05/31/2001 HPV Vaccines (1 - 3-dose SCDM series) 05/31/2010 Covid-19 Vaccine (2024- season) 2024 03/16/2021, 05/25/2020, 05/04/2020 Influenza Vaccine (#1) 2024 , 02/02/2022, 12/24/2020, Additional history exists DTaP/Tdap/Td Vaccine (4 - Td or Tdap) 10/18/2025 10/19/2015, 06/27/2011, 12/17/2007, Additional history exists Breast Cancer Screening-Mammogram 02/09/2026 02/09/2025, 03/27/2024 Hepatitis B Screening Completed 06/18/2001 , 05/22/2001, 01/15/2001 Pneumococcal vaccine <65 Aged Out No longer eligible based on patient's age to complete this topic Medical Devices Implanted Type Area Right Of Way Appraiser Device Identifier Shelf Expiration Date Model / Serial / Lot [email or web address] Mri Guided Rigid Deployment Device Cork Marker Breast Trimark Td 13-Mr - [id number] Implanted:Qty: 1 on 05/04/2023 at [facility] [email or web address] [id number] 04/10/2024 TRIMARK TD 13-MR / / [id number] Bard Peripheral Vascular Ultraclip Bard 17ga 10cm 2 Trigger Permanent Ultrasound [id number] - [id number] Implanted:Qty: 1 on 10/13/2024 by Shavon Llamas MD at [facility] Left: Breast Bard Peripheral Vascular [id number] / Procedures Procedure Name Priority Date/Time Associated Diagnosis Comments DIAGNOSTIC MAMMOGRAM BILATERAL W TE Schedule Routine, Read Routine (OP Routine) 02/09/2025 9:56 AM WELT RANDER Breast pain from Last 3 Months Results * Diagnostic Mammogram Bilateral W Te (02/09/2025 9:56 AM WELT RANDER) Anatomical Region Laterality Modality Breast Bilateral Mammography 02/09/2025 10:0 4 AM WELT RANDER Impressions 02/09/2025 10:07 AM WELT RANDER No mass, calcification, or architectural distortion to suggest malignancy within either breast. OVERALL FINAL ASSESSMENT: BI-RADS Category 1: Negative. RECOMMENDATION: Annual screening mammography is recommended. Dr. Solorzano discussed the above findings and recommendations with the patient, who expressed her understanding of the management plan. Dictated by: Philipp Watkins M.D. The radiology attending physician has personally reviewed this study, and had reviewed and/or edited this written report and agrees with it. Electronically signed by: Lanie Solorzano M.D. Narrative 02/09/2025 10:07 AM WELT RANDER EXAMINATION: BILATERAL DIGITAL DIAGNOSTIC MAMMOGRAM INCLUDING CAD AND BILATERAL DIGITAL BREAST TOMOSYNTHESIS HISTORY: 39-year-old female with non focal left inner breast pain. Patient denies personal history of breast cancer. Patient has a strong family history of breast cancer with her mother, cousin, maternal grandmother, and paternal grandmother all being diagnosed with breast cancer after the age of 55. No family history of ovarian cancer. COMPARISON: Multiple prior examinations, most recently a MRI dated 09/24/2024 and sonogram dated 10/08/2024. TECHNIQUE: Full field digital mammographic views of BOTH breasts were performed, including computer aided detection (CAD) and BILATERAL digital breast tomosynthesis (DBT). BREAST PARENCHYMAL COMPOSITION: The breasts are heterogeneously dense, which may obscure small masses. MAMMOGRAM FINDINGS: There is no mass, calcification or architectural distortion suggestive of malignancy within EITHER breast. Targeted physical exam with special attention to the inner left breast did not demonstrate any palpable lumps or masses. The patient also indicated that the pain is cyclical and has been present for over a year. Shaye Gelacio Moniqueda MANAGER NURSING HOME IMG MAMMO PROCEDURES Fi nal Result from Last 3 Months Insurance CIGNA CIGNA Care Teams Fund Manager Relationship Specialty Start Date End Date Lang De León MD [address] [place] [address] PCP - General Family Medicine 03/08/23 Jessica Coelho NP [address] [place] [address] Nurse Practitioner Nurse Practitioner 04/18/23 Kristine Xavier MD [facility] [place] [address] Referring Physician Gynecology 05/24/23
--- OUTSIDE RECORDS SUMMARY | 2025-02-13 01:21 | XMS_ITS | Clinical Summary ---
Author Organization [facility] [employer] Address [address] [place] [address] Care Team Providers Care Fire Tender Name Role Phone Lang De León MD Primary Care Provider [phone] Source Comments [facility] [employer],non-owned Affiliates and Associated Physician Practices is amultiple site organization consisting of ambulatory clinics and hospital sitesin [place], [place], [place] and [place]. This disclosure is being madepursuant to the Care Everywhere program and may not contain all information available regarding this patient. Last updated 17.[facility] [employer] Allergies No known active allergies Immunizations Immunization Administration Dates Next Due INFLUENZA VACCINE, QUADR. 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 Gender Identity Not on file Sexual Orientation Not on file Plan of Treatment Health Maintenance Due Date Last Done Comments LIPID TESTING 1985 MAMMOGRAM 1985 HIV SCREENING 05/31/1998 HEPATITIS C SCREENING 05/27/2001 DTAP/TDAP/TD VACCINES (1 - Tdap) 05/31/2002 HEPATITIS B VACCINE (1 of 3 - 19+ 3-dose series) 05/31/2002 HPV VACCINE (1 - 3-dose SCDM series) 05/31/2010 DEPRESSION SCREENING 03/05/2024 COVID-19 VACCINE ( - 2024-2 6 season) 2024 INFLUENZA VACCINE (#1) 2024 01/05/2018 ZOSTER VACCINE (1 of 2) 05/31/2033 HIB [...] to complete this topic Insurance Care Teams Fire Tender Relationship Specialty Start Date End Date Lang De León MD [address] [place] [address] PCP - General 08/13/17
--- OUTSIDE RECORDS SUMMARY | 2025-02-13 01:21 | XMS_ITS | Clinical Summary ---
Author Organization [facility] Administrative Offices Address [address] [place] [address] Care Team Providers Care Planer Off Bearer Name Role Phone Lang De León MD Primary Care Provider [phone] Allergies No known active allergies Medications spironolactone (ALDACTONE) 100 mg tablet Take 100 mg by mouth daily. Active DULoxetine (CYMBALTA) 60 mg Capsule, Delayed Release(E.C.) Take 60 mg by mouth daily. Active Saccharomyces boulardii (FLORASTOR) 250 mg Capsule Take by mouth. Activ e polycarbophil calcium (FIBERCON) 625 mg tablet Take 625 mg by mouth daily. Active ibuprofen (MOTRIN) 600 mg tablet Take 1 Tablet (600 mg) by mouth every 6 hours as needed for Pain. 40 Tablet 4 5:01 PM CDT 10/18/19 24 Active Additional Information Patient not taking.Reported on 12/10/2024 HYDROcodone-acetamin ophen (NORCO) 5-325 mg tabletIndications:Ca psulitis of right temporomandibular joint Take 1 Tablet by mouth every 4 hours as needed for Pain, Moderate. Max Daily Amount: 6 Tablets 12 Tablet 4 5:01 PM CDT 10/18/19 24 Active acetaminophen (TYLENOL) 325 mg tablet Take 2 Tablets (650 mg) by mouth every 6 hours as needed for Pain. 50 Tablet 4 5:01 PM CDT 10/18/19 24 Active omeprazole (PriLOSEC) 40 mg Capsule, Delayed Release(E.C.) Take 1 Capsule (40 mg) by mouth daily before breakfast. 30 Capsule 3 10/23/19 25 Active ondansetron (ZOFRAN ODT) 4 mg Tablet, Rapid Dissolve Take 1 Tablet (4 mg) by mouth every 8 hours as needed for Nausea/Emesis. Dissolve tablet on top of tongue, then swallow with saliva. 30 Tablet 3 10/23/19 25 Active mesalamine (LIALDA) 1.2 gram Tablet, Delayed Release (E.C.) Take 3 Tablets (3.6 Grams) by mouth daily with breakfast. 270 Tablet 3 11/12/19 25 Active omeprazole (PriLOSEC) 20 mg Capsule, Delayed Release(E.C.) Take 1 Capsule (20 mg) by mouth daily for 14 days. 14 Capsule 01/02/20 25 025 Active Problems Problem Noted Date Diagnosed Date Ulcerative colitis 11/22/2023 Constipation 11/22/2023 Encounters Date Type Department Care Team Description 02/04/20 External Device Data ST[facility] ABSTRACTION Provider, Abstract 01/07/20 External Device Data STL ABSTRACTION Provider, Abstract 01/03/20 Telephone [facility] Gastroenterology [facility] [address] [address] [place] [id number] Doreen Conte MD Needs Appointment (6 mo f/u UC) 01/02/20 2:30 PM CDT Video Visit [facility] IBD and Gastroenterology [facility] [address] [place] [address] Doreen Conte MD 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); Functional dyspepsia; Bloating; Other constipation; Chest pain, unspecified type 01/01/20 External Device Data STL ABSTRACTION Provider, Abstract 12/31/19 External Device Data STL ABSTRACTION Provider, Abstract 12/31/19 Results Follow-Up [facility] IBD and Gastroenterology [facility] [address] [address] [place] [address] Doreen Conte MD PATHOLOGY 12/30/19 11:40 AM CDT - 12/30/19 12:20 PM CDT Surgery [facility] GI Lab [facility] [address] [place] [address] Doreen Conte MD ESOPHAGOGASTRODUODENOSCOPY 12/30/19 11:36 AM CDT Anesthesia Event [facility] [address] [place] [address] Gilbert Arreaga MD Behar, Diana P, YONAS-Yumi 12/30/19 10:47 AM CDT - 12/30/19 1:04 PM CDT Hospital Encounter [facility] [address] [place] [address] Doreen Conte MD Epigastric abdominal pain Discharge Disposition: Home or Self Care 12/24/19 External Device Data STL ABSTRACTION Provider, Abstract 11/22/19 Orders Only [facility] [place] [address] [place] [address] Jessica Neves ANP Epigastric abdominal pain (Primary Dx); 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); Functional dyspepsia; Bloating from Last 3 Months Immunizations Immunization Administration [...] Sign Reading Time Taken Comments Blood Pressure 108/69 12/29/2024 12:35 PM CDT Pulse 70 12/29/2024 12:35 PM CDT Temperature 36.6 C (97.8 F) 12/29/2024 12:15 PM CDT Respiratory Rate 16 12/29/2024 12:35 PM CDT Oxygen Saturation 100% 12/29/2024 12:35 PM CDT Inhaled Oxygen Concentration - - Weight 59.9 kg (132 lb) 01/01/2025 2:27 PM CDT Height 167.6 cm (5' 6) 01/01/2025 2:27 PM CDT Body Mass Index 21.31 01/01/2025 2:27 PM CDT Plan of Treatment Health Maintenance Due Date Last Done Comments HEPATITIS B VACCINES (4 of 4 - 4-dose series) 07/17/2001 06/18/2001, 05/22/2001, 01/15/2001 HPV/Cotest (21-29) 05/31/2004 CERVICAL CANCER SCREENING 05/31/2013 HPV/Cotest (30-65) 05/31/2013 PAP SMEAR 05/31/2013 DTAP/TDAP/TD VACCINES (3 - T d or Tdap) 12/16/2017 12/17/2007, 05/19/1997 INFLUENZA VACCINE (#1) 2024 02/07/2024, 2017 BREAST CANCER SCREENING 10/13/2025 10/14/19, 03/27/2024, 03/27/2024 COLORECTAL SCREENING 12/29/2026 12/29/2024, 12/29/2024, 01/15/2024, Additional history exists HPV VACCINES (No Doses Required) Completed Procedures Procedure Name Priority Date/Time Associated Diagnosis Comments COLONOSCOPY REPORT 12/29/2024 12:17 PM CDT UPPER ENDOSCOPY REPORT 12:14 PM CDT PATHOLOGY Pathology 12/29/2024 11:57 AM CDT Epigastric abdominal pain Functional 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 POC , URINE Routine 12/29/2024 11:00 AM CDT from Last 3 Months Results * COLONOSCOPY REPORT (12/29/2024 12:17 PM CDT) Narrative Procedure Note Doreen Conte MD - 12/29/2024 12:17 PM CDT [facility] Endoscopy Patient Name: Maicol Ozuna Procedure Date: 12/29/2024 Date of : 1985 Attending MD: Doreen Conte MD, Procedure: Colonoscopy Indications: High risk colon cancer surveillance: Ulcerative left sided colitis of 8 (or more) years duration Providers: Doreen Conte MD Referring MD: Lang De León MD Medicines: Monitored Anesthesia Care Complications: No immediate complications. Procedure: Informed consent was obtained for the procedure, including moderate sedation after risks were discussed. Based on the pre-procedure assessment, including review of the patient's medical history, medications, allergies, and review of systems, the patient was deemed to be an appropriate candidate for sedation. A timeout was performed. Continuous ECG monitoring, pulse oximetry, blood pressure monitoring, and direct observation were performed. The Colonoscope was introduced through the anus and advanced to the terminal ileum. The colonoscopy was performed without difficulty. The patient tolerated the procedure well. The quality of the bowel preparation was excellent. The terminal ileum, ileocecal valve, appendiceal orifice, and rectum were photographed. Estimated Blood Loss: Estimated blood loss was minimal. Findings: The perianal and digital rectal examinations were normal. The terminal ileum appeared normal. The colon (entire examined portion) was mildly redundant. Inflammation was not found based on the endoscopic appearance of the mucosa in the colon. This was graded as Weber Score 0 (normal or inactive disease). Several biopsies were obtained in the rectum and in the sigmoid colon with cold forceps for histology. An 8 mm polyp was found in the transverse colon. The polyp was sessile. The polyp was removed with a cold snare. Resection and retrieval were complete. The entire colon was examined closely with white light endoscopy. The left colon was then examined a second time with narrow band imaging. No additional focal abnormalities were seen. Internal hemorrhoids were found during retroflexion. The hemorrhoids were small. The exam was otherwise without abnormality on direct and retroflexion views. Impression: - The examined portion of the ileum was normal. - Inactive (Weber Score 0) ulcerative colitis. - One 8 mm polyp in the transverse colon, removed with a cold snare. Resected and retrieved. - Internal hemorrhoids. - The examination was otherwise normal on direct and retroflexion views. - Several biopsies were obtained in the rectum and in the sigmoid colon. Recommendation: - Discharge patient to home. - Resume previous diet. - Continue present medications. - Await pathology results. - Repeat colonoscopy for surveillance based on pathology results. - Continue lialda 3 tablets per day - Continue daily miralax - Return to my office as previously scheduled. - Patient has a contact number available for emergencies. The signs and symptoms of potential delayed complications were discussed with the patient. Return to normal activities tomorrow. Written discharge instructions were provided to the patient. Doreen Conte MD 12/29/2024 12:17:24 PM This report has been signed electronically. Number of Addenda: [address]; [place] [address] us Doreen Conte MD GI PROCEDURE ORDERABLES F inal Result * UPPER ENDOSCOPY REPORT (12/29/2024 12:14 PM CDT) Narrative Procedure Note Doreen Conte MD - 12/29/2024 12:14 PM CDT [facility] Endoscopy Patient Name: Maicol Ozuan Procedure Date: 12/29/2024 Date of : 1985 Attending MD: Doreen Conte MD, Procedure: Upper GI endoscopy Indications: Functional Dyspepsia, Unexplained chest pain Providers: Doreen Conte MD Referring MD: Lang De León MD Medicines: Monitored Anesthesia Care Complications: No immediate complications. Procedure: Informed consent was obtained for the procedure, including moderate sedation after risks were discussed. Based on the pre-procedure assessment, including review of the patient's medical history, medications, allergies, and review of systems, the patient was deemed to be an appropriate candidate for sedation. A timeout was performed. Continuous ECG monitoring, pulse oximetry, blood pressure monitoring, and direct observation were performed. The was introduced through the mouth, and advanced to the second part of duodenum. The upper GI endoscopy was accomplished without difficulty. The patient tolerated the procedure well. Estimated Blood Loss: Estimated blood loss was minimal. Findings: The examined esophagus was normal. Biopsies were obtained from the proximal and distal esophagus with cold forceps for histology of suspected eosinophilic esophagitis. The entire examined stomach was normal. Biopsies were taken with a cold forceps for histology. A few 5 mm pedunculated and sessile polyps with no stigmata of recent bleeding were found in the gastric body. The polyp was removed with a cold snare. Resection and retrieval were complete. The examined duodenum was normal. Biopsies were taken with a cold forceps for histology. Impression: - Normal esophagus. - Normal stomach. Biopsied. - A few gastric polyps. Resected and retrieved. - Normal examined duodenum. Biopsied. - Biopsies were taken with a cold forceps for evaluation of eosinophilic esophagitis. Recommendation: - Await pathology results. - Proceed with colonoscopy - Continue omeprazole Doreen Conte MD 12/29/2024 12:14:11 PM This report has been signed electronically. Number of Addenda: [address]; [place] [address] Doreen Conte MD GI PROCEDURE ORDERABLES F inal Result * PATHOLOGY (12/29/2024 11:57 AM CDT) CASE REPORT Surgical Pathology R eport Case: [id number] Authorizing Provider: Doreen Conte MD Collected: 12/29/2024 11:57 AM Ordering Location: [facility] [address] Received: 12/29/2024 01:58 PM Pathologist: Amy Mariscal MD Specimens: A) - Duodenum, BXs B) - Stomach, BXs C) - Stomach, polyp D) - Esophagus, distal, BXs E) - Esophagus, proximal, BXs F) - Colon, transverse, polyp G) - Colon, sigmoid, bx H) - Rectum, bx 8:08 AM T [facility] FINAL DIAGNOSIS Duodenum, biopsy: - No histopathologic abnormality. Stomach, biopsy: - Mild chronic inflammation. - Mild parietal cell hyperplasia, consistent with proton pump inhibitor effect. Stomach, polyps, biopsy: - Fundic gland polyp. - Detached fragments of unremarkable squamous mucosa. Esophagus, distal, biopsy: - Mild reactive changes. Esophagus, proximal, biopsy: - Mild reactive changes. Colon, transverse, polyp, biopsy: - Sessile serrated adenoma/lesion. Colon, sigmoid, biopsy: - No histopathologic abnormality. - No evidence of granulomas or dysplasia. Rectum, biopsy: - No histopathologic abnormality. - No evidence of granulomas or dysplasia. 8:08 AM T [facility] at 0808 CDT GROSS DESCRIPTION The specimens are received in eight containers each labeled Maicol [place]. Received in the first container additionally labeled duodenum biopsies are 3 irregular fragments of pale-bee tissue ranging from 0.2 to 0.3 cm in greatest dimension. Entirely submitted in cassette labeled A1. Received in the second container additionally labeled stomach biopsies are 4 irregular fragments of pale-bee tissue ranging from 0.2 to 0.3 cm in greatest dimension. Entirely submitted in cassette labeled B1. Received in the third container additionally labeled stomach polyp are 4 irregular fragments of pale-bee tissue ranging from 0.2 to 0.6 cm in greatest dimension. Entirely submitted in cassette labeled C1. Received in the fourth container additionally labeled distal esophagus biopsies are 2 irregular fragments of bee-white tissue each measuring 0.2 cm in greatest dimension. Entirely submitted in cassette labeled D1. Received in the fifth container additionally labeled proximal esophagus biopsy are 4 irregular fragments of bee-white tissue each measuring 0.2 cm in greatest dimension. Entirely submitted in cassette labeled E1. Received in the sixth container additionally labeled transverse colon polyp are 2 irregular fragments of pale-bee tissue ranging from 0.2 to 1.9 cm in greatest dimension. Entirely submitted in cassette labeled F1. Received in the seventh container additionally labeled sigmoid colon biopsy is a single irregular fragment of pale-bee tissue measuring 0.2 cm in greatest dimension. Entirely submitted in cassette labeled G1. Received in the eighth container additionally labeled rectum biopsy is a single irregular fragment of pale-bee tissue measuring 0.3 cm in greatest dimension. Entirely submitted in cassette labeled H1. SMB 5 8:08 AM [facility] [employer] [facility] MICROSCOPIC DESCRIPTION The slides are labeled [id number] and Maicol Ozuna. Sections of the duodenal biopsy show normal crypt to villous architecture and no increase in intraepithelial lymphocytes. There is no evidence of active inflammation, granulomas or dysplasia. Histologic features of celiac disease are not identified. Sections of the gastric biopsy show oxyntic type mucosa with mild chronic inflammation and mild parietal cell hyperplasia. There is no evidence of active inflammation, intestinal (goblet cell) metaplasia, granulomas or dysplasia. Helicobacter pylori-like organisms are not seen in H&E stained sections. Sections of the gastric polyp show a fragment of oxyntic-type mucosa with dilated glands, consistent with a fundic gland polyp. Separate fragment of oxyntic type mucosa is present with mild chronic inflammation. There is no evidence of active inflammation, intestinal (goblet cell) metaplasia, granulomas or dysplasia. Helicobacter pylori-like organisms are not seen in H&E stained sections. Detached fragments of unremarkable squamous mucosa are present and may represent a carryover. Sections of the distal and proximal esophagus biopsies show squamous mucosa with mild reactive changes and a few intraepithelial lymphocytes. Eosinophils are not seen. There is no evidence of dysplasia or malignancy. Sections of the transverse colon polyp show a fragment of colonic mucosa with serrated change and dilated crypts, consistent with a sessile serrated adenoma/lesion. There is no evidence of conventional adenomatous dysplasia or malignancy. Sections of the sigmoid colon and rectal biopsies show colonic mucosa with preserved architecture. There is no evidence of active inflammation, granulomas, dysplasia, lymphocytic or collagenous colitis. 5 8:08 AM [facility] [employer] [facility] OPERATIVE PROCEDURE 1: Esophagogastroduodenoscop y 2: Colonoscopy 5 8:08 AM [facility] CLINICAL INFORMATION A Small bowel Bx's. Rule out sprue (chronic diarrhea and/or Iron deficiency anemia. 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 R14.0-Bloating 8:08 AM [facility] COMMENT Special stain, immunohistochemical, and/or in situ hybridization results are interpreted with controls that demonstrate appropriate staining reactions. Note on use of immunohistochemistry reagents and in situ hybridization probes: These tests were developed and their performance characteristics determined by [facility] Department of Laboratory Medicine. It has not been cleared or approved by the U.S. Food and Drug Administration. The FDA has determined that such clearance or approval is not necessary. The test is used for clinical purposes. It should not be regarded as investigational or for research. This laboratory is certified to perform high complexity testing. Frozen section/operating room consultation, gross examination and dissection, and case sign out may have been performed in part or completely in the following laboratories: [facility], CLIA #[id number] [address] [place] [address] [facility], CLIA #[id number] [address] [place] [address] [facility], CLIA #[id number] [address] [place] [address] This report was created with the [employer] voice-activated dictation system. Inherent to this system is the possibility of syntax, grammar, punctuation and other errors that could impact the interpretation of the report. If there are interpretative questions about aspects of this report, please contact the performing pathologist. 8:08 AM [facility] Tissue ENTIRE DUODENUM / Unknown Collection / Unknown 12/29/2024 11:57 AM CDT 12/29/2024 1:58 PM CDT Comment:Small bowel Bx's. Ru le out sprue (chronic diarrhea and/or Iron deficiency anemia. Tissue specimen (specimen) ENTIRE STOMACH / Unknown 12/29/2024 11:57 AM CDT 12/29/2024 1:58 PM CDT Comment:Gastritis, r/o h.pyl raiza Tissue specimen (specimen) ENTIRE STOMACH / Unknown 12/29/2024 11:57 AM CDT 12/29/2024 1:58 PM CDT Comment:Gastric polyp(s) Tissue specimen (specimen) (Esophagus, distal) 12/29/2024 11:58 AM CDT 12/29/2024 1:58 PM CDT Comment:Rule out eosinophili c esophagitis. Tissue specimen (specimen) (Esophagus, proximal) 12/29/2024 11:58 AM CDT 12/29/2024 1:58 PM CDT Comment:Rule out eosinophili c esophagitis. Tissue specimen (specimen) TRANSVERSE COLON STRUCTURE / Unknown 12/29/2024 12:07 PM CDT 12/29/2024 1:58 PM CDT Comment:Colon Polyp(s). Crescencio omatous vs hyperplastic vs other. Tissue specimen (specimen) SIGMOID COLON STRUCTURE / Unknown 12/29/2024 12:16 PM CDT 12/29/2024 1:58 PM CDT Comment:Rule out inflammatio n Tissue specimen (specimen) ENTIRE RECTUM / Unknown 12/29/2024 12:17 PM CDT 12/29/2024 1:58 PM CDT Comment:Rule out imflammatio n Doreen Conte MD PATHOLOGY/CYTOLOGY ORDERA BLES Final Result [facility] CLIA# [id number] [address] [facility] [address] [place] [place] [id number] * POC , URINE (12/29/2024 11:00 AM CDT) HCG QUAL URINE Negative Negative 12/29/2024 11:00 AM CDT [facility] Urine 12/29/2024 11:0 0 AM CDT 12/29/2024 11:07 AM CDT Narrative [facility] - 12/29/2024 11:00 AM CDT Positive : Result is greater than or equal to 25 mIU/mL Negative: Result is less than 25 mIU/mL Invalid: Result is borderline or indeterminate,send to lab for serum test methodology. Doreen Conte MD POINT OF CARE TESTING Fin al Result [facility] CLIA# [id number] [address] [place] [id number] from Last 3 Months Insurance RX [employer] RX Member Subscriber Plan / Payer (Ef fective 2023-Present) Name:Maicol Ozuna Relation to Subscriber:Self Name:Maicol Ozuna Subscriber ID:Not on file Payer ID:Not on file Type:RX Commercial Address: [place] Advance Directives For more information, please contact: [phone] * Full Code (Latest Code Status on File) Date Activated Date Inactivated Comments 12/29/2024 11:18 AM 12/29/2024 3:12 PM * Full Code Date Activated Date Inactivated Comments 01/15/2024 8:45 AM 01/15/2024 12:09 PM * Full Code Date Activated Date Inactivated Comments 10/18/2023 11:42 AM 10/18/2023 9:10 PM Care Teams Planer Off Bearer Relationship Specialty Start Date End Date Lang De León MD [address] [phone] PCP - General Family Practice 11/28/24
[2025-02-13 01:51] VITALS: BP 109/70; PULSE 89; RESP 14; TEMP 36.6; O2SAT 100
--- NOTE | 2025-02-13 02:50 | PC.NURSE ---
Pt states she is feeling better and is going to leave. Encouraged pt to stay for MSE, but declined. Ambulatory to parking lot with steady gait.
--- OUTSIDE RECORDS SUMMARY | 2025-02-13 03:00 | XMS_ITS | Clinical Summary ---
Author Organization [employer] [facility] lin Address [address] [facility] [place] [address] Care Team Providers Care It Help Desk Associate Name Role Phone Unavailable Primary Care Provider Unavailabl e Allergies No known active allergies Social History Tobacco Use Types Packs/Day Years Used Date Smoking Tobacco: Never Assessed Comments Unknown Sex and Gender Information Value Date Recorded Sex Assigned at Not on file Legal Sex Female 10:58 AM EST Gender Identity Not on file Sexual Orientation Not on file Last Filed Vital Signs Vital Sign Reading Time Taken Comments Blood Pressure - - Pulse 107 03/11/2020 2:56 PM FOOD STAND MANAGER Temperature 36.4 C (97.6 F) 03/11/2020 2:56 PM FOOD STAND MANAGER Respiratory Rate - - Oxygen Saturation 97% 03/11/2020 2:56 PM FOOD STAND MANAGER Inhaled Oxygen Concentration - - Weight - - Height - - Body Mass Index - - Plan of Treatment Not on file Medical Devices Not on file Insurance [employer]
--- OUTSIDE RECORDS SUMMARY | 2025-02-13 03:01 | XMS_ITS | Clinical Summary ---
Author Organization [facility] Address [address] [place] [address] Care Team Providers Care Steam Shovel Runner Name Role Phone Lang De León MD Primary Care Provider Jessica Coelho NP Unavailable [phone] Kristine Xavier MD Unavailable [phone] Allergies Active Allergy Reactions Criticality Noted Date [...] Department Care Team Description 02/09/2025 9:00 AM REVENUE ACCOUNTING MANAGER - 02/09/2025 11:59 PM REVENUE ACCOUNTING MANAGER Hospital Encounter [facility] - Breast Imaging [address] [place] [address] Breast pain Discharge Disposition: Discharge to home or self care 02/09/2025 8:45 AM REVENUE ACCOUNTING MANAGER [facility] [address] [place] [address] 8 [place] [id number] Shaye Villar, SAROJ Pain of left breast (Primary Dx); Fibroadenoma of breast, left; At high risk for breast cancer; Family history of breast cancer in first degree relative 01/20/2025 Orders Only [facility] [address] [place] [address] 8 [place] [id number] Shaye Villar NP Breast pain (Primary Dx) [...] on file Legal Sex Female 4:50 PM REVENUE ACCOUNTING MANAGER Gender Identity Not on file Sexual Orientation Not on file Obstetrics History Para Term AB IAB SAB Ectopic Multiple Livin g Live Births 2 1 Date Outcome GA Total Labor Labor/2nd/3rd Weight Sex Type Anes PTL Ariella A1 A5 Name Clin Last Filed Vital Signs Vital Sign Reading Time Taken Comments Blood Pressure 121/74 02/09/2025 9:00 AM REVENUE ACCOUNTING MANAGER Pulse 87 02/09/2025 9:00 AM REVENUE ACCOUNTING MANAGER Temperature 36.6 C (97.8 F) 02/09/2025 9:00 AM REVENUE ACCOUNTING MANAGER Respiratory Rate 18 02/09/2025 9:00 AM REVENUE ACCOUNTING MANAGER Oxygen Saturation 100% 02/09/2025 9:00 AM REVENUE ACCOUNTING MANAGER Inhaled Oxygen Concentration - - Weight 61 kg (134 lb 6.4 oz) 02/09/2025 9:00 AM REVENUE ACCOUNTING MANAGER Height 166.5 cm (5' 5.55) 02/09/2025 9:00 AM CS T Body Mass Index 21.99 02/09/2025 9:00 AM REVENUE ACCOUNTING MANAGER Plan of Treatment Health Maintenance Due Date [...] this topic Medical Devices Implanted Type Area Boiler Fitter Device Identifier Shelf Expiration Date Model / Serial / Lot [employer] TapZilla Mri Guided Rigid Deployment Device Cork Marker Breast Trimark Td 13-Mr - [id number] Implanted:Qty: 1 on 05/04/[address] [facility] [employer] [id number] 04/10/2024 TRIMARK TD 13-MR / / [id number] Bard Peripheral Vascular Ultraclip Bard 17ga 10cm 2 Trigger Permanent Ultrasound [id number] - [id number] Implanted:Qty: 1 on 10/13/2024 by Shavon Llamas MD at [facility] Left: Breast Bard Peripheral Vascular [id number] / / Procedures Procedure Name Priority Date/Time Associated Diagnosis Comments DIAGNOSTIC MAMMOGRAM BILATERAL W TE Schedule Routine, Read Routine (OP Routine) 02/09/2025 9:56 AM REVENUE ACCOUNTING MANAGER Breast pain from Last 3 Months Results * Diagnostic Mammogram Bilateral W Te (02/09/2025 9:56 AM REVENUE ACCOUNTING MANAGER) Anatomical Region Laterality Modality Breast Bilateral Mammography 02/09/2025 10:0 4 AM REVENUE ACCOUNTING MANAGER Impressions 02/09/2025 10:07 AM REVENUE ACCOUNTING MANAGER No mass, calcification, or architectural distortion to [...] Lanie Solorzano M.D. Narrative 02/09/2025 10:07 AM REVENUE ACCOUNTING MANAGER EXAMINATION: BILATERAL DIGITAL DIAGNOSTIC MAMMOGRAM INCLUDING CAD [...] for over a year. Shaye Gelacio Moniqueda DOWNSTREAM BIOMANUFACTURING TECHNICIAN IMG MAMMO PROCEDURES Fi nal Result from Last 3 Months Insurance CIGNA CIGNA Care Teams Steam Shovel Runner Relationship Specialty Start Date End Date Lang De León MD [address] [place] [address] PCP - General Family Medicine 03/08/23 Jessica Coelho NP [address] [place] [address] Nurse Practitioner Nurse Practitioner 04/18/23 Kristine Xavire MD [facility] [place] [address] Referring Physician Gynecology 05/24/23
--- OUTSIDE RECORDS SUMMARY | 2025-02-13 03:01 | XMS_ITS | Clinical Summary ---
Author Organization [facility]ices Address [address] [place] [address] Care Team Providers Care Abseiling Instructor Name Role Phone Lang De León MD Primary Care Provider [phone] Allergies No known active allergies Medications spironolactone [...] Data STL ABSTRACTION Provider, Abstract 01/03/20 Telephone [facility] Gastroenterology [facility] [address] [facility] [address] [place] [address] Doreen Conte MD Needs Appointment (6 mo f/u UC) 01/02/20 2:30 PM CDT Video Visit [facility] IBD and Gastroenterology [place] [address] [place] [address] Doreen Conte MD 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); Functional dyspepsia; Bloating; Other constipation; Chest pain, unspecified type 01/01/20 External Device Data STL ABSTRACTION Provider, Abstract 12/31/19 External Device Data STL ABSTRACTION Provider, Abstract 12/31/19 Results Follow-Up [facility] [place] [address] [facility] [address] [place] [address] Doreen Conte MD PATHOLOGY 12/30/19 11:40 AM CDT - 12/30/19 12:20 PM CDT Surgery [facility] GI Lab [facility] [address] [place] [address] Doreen Conte MD ESOPHAGOGASTRODUODENOSCOPY 12/30/19 11:36 AM CDT Anesthesia Event [facility] [address] [place] [address] Gilbert Arreaga MD Behar, Diana P, YONAS-Yumi 12/30/19 10:47 AM CDT - 12/30/19 1:04 PM CDT Hospital Encounter [facility] [address] [place] [address] Doreen Conte MD Epigastric abdominal pain Discharge Disposition: Home or Self Care 12/24/19 External Device Data STL ABSTRACTION Provider, Abstract 11/22/19 Orders Only [facility] [address] [place] [address] [facility] [address] [place] [address] Jessica Neves ANP Epigastric abdominal pain (Primary [...] dyspepsia 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 POC , URINE Routine 12/29/2024 11:00 AM CDT from Last 3 Months Results * COLONOSCOPY REPORT (12/29/2024 12:17 PM CDT) Narrative Procedure Note Doreen Conte MD - 12/29/2024 12:17 PM CDT [facility] Endoscopy Patient Name: Maicol Ozuna Procedure [...] in the colon. This was graded as Webre Score 0 (normal or inactive disease). Several [...] of Addenda: [address]; [place] [address] us Doreen Conte MD GI PROCEDURE ORDERABLES F inal Result * UPPER ENDOSCOPY REPORT (12/29/2024 12:14 PM CDT) Narrative Procedure Note Doreen Conte MD - 12/29/2024 12:14 PM CDT [facility] Endoscopy Patient Name: Maicol Ozuna Procedure [...] of Addenda: [address]; [place] [address] Doreen Conte MD GI PROCEDURE ORDERABLES F inal Result * PATHOLOGY (12/29/2024 11:57 AM CDT) CASE REPORT Surgical Pathology R eport Case: [id number] Authorizing Provider: Doreen Conte MD Collected: 12/29/2024 11:57 AM Ordering Location: [facility] [address] Received: 12/29/2024 01:58 PM Pathologist: Amy Mariscal MD Specimens: A) - Duodenum, BXs B) - Stomach, BXs C) - Stomach, polyp D) - Esophagus, distal, BXs E) - Esophagus, proximal, BXs F) - Colon, transverse, polyp G) - Colon, sigmoid, bx H) - Rectum, bx 8:08 AM T [facility] FINAL DIAGNOSIS Duodenum, biopsy: - No histopathologic [...] of granulomas or dysplasia. 8:08 AM T [facility] at 0808 CDT GROSS DESCRIPTION The specimens [...] cassette labeled H1. SMB 5 8:08 AM [facility] [employer] [facility] MICROSCOPIC DESCRIPTION The slides are labeled [id number] and Maicol Ozuna. Sections of the duodenal [...] lymphocytic or collagenous colitis. 5 8:08 AM [facility] [employer] [facility] OPERATIVE PROCEDURE 1: Esophagogastroduodenoscop y 2: Colonoscopy 5 8:08 AM [facility] CLINICAL INFORMATION A Small bowel Bx's. Rule out sprue (chronic diarrhea and/or Iron deficiency anemia. 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 R14.0-Bloating 8:08 AM [facility] COMMENT Special stain, immunohistochemical, and/or in situ hybridization results are interpreted with controls that demonstrate appropriate staining reactions. Note on use of immunohistochemistry reagents and in situ hybridization probes: These tests were developed and their performance characteristics determined by [facility] Department of Laboratory Medicine. It has not [...] part or completely in the following laboratories: [facility], CLIA #[id number] [address] [place] [address] [facility], CLIA #[id number] [address] [place] [address] [facility], CLIA #[id number] [address] [place] [address] This report was created with the [employer] voice-activated dictation system. Inherent to this system is the possibility of syntax, grammar, punctuation and other errors that could impact the interpretation of the report. If there are interpretative questions about aspects of this report, please contact the performing pathologist. 8:08 AM [facility] Tissue ENTIRE DUODENUM / Unknown Collection [...] Conte MD PATHOLOGY/CYTOLOGY ORDERA BLES Final Result [facility] CLIA# [id number] [address] [facility] [place] [id number] * POC , URINE (12/29/2024 11:00 AM CDT) HCG QUAL URINE Negative Negative 12/29/2024 11:00 AM CDT [facility] Urine 12/29/2024 11:0 0 AM CDT 12/29/2024 11:07 AM CDT Narrative [facility] - 12/29/2024 11:00 AM CDT Positive : Result is greater than or equal to 25 mIU/mL Negative: Result is less than 25 mIU/mL Invalid: Result is borderline or indeterminate,send to lab for serum test methodology. Doreen Conte MD POINT OF CARE TESTING Fin al Result [facility] CLIA# [id number] [address] [place] [id number] from Last 3 Months Insurance RX [employer] RX Member Subscriber Plan / Payer (Ef fective 2023-Present) Name:Maicol Ozuna Relation to Subscriber:Self Name:Maicol Ozuna Subscriber ID:Not on file Payer ID:Not on file Type:RX Commercial Address: [place] Advance Directives For more information, please contact: [phone] * Full Code (Latest Code Status on File) Date Activated Date Inactivated Comments 12/29/2024 11:18 AM 12/29/2024 3:12 PM * Full Code Date Activated Date Inactivated Comments 01/15/2024 8:45 AM 01/15/2024 12:09 PM * Full Code Date Activated Date Inactivated Comments 10/18/2023 11:42 AM 10/18/2023 9:10 PM Care Teams Abseiling Instructor Relationship Specialty Start Date End Date Lang De León MD [address] [address] PCP - General Family Practice 11/28/24
--- OUTSIDE RECORDS SUMMARY | 2025-02-13 03:01 | XMS_ITS | Clinical Summary ---
Author Organization [facility] Address [address] [place] [address] Care Team Providers Care Circuitry Negative Inspector Name Role Phone Lang De León MD Primary Care Provider [phone] Source Comments [facility],non-owned Affiliates and Associated Physician Practices is amultiple site organization consisting of ambulatory clinics and hospital sitesin [place], [place], [place] and [place]. This disclosure is being madepursuant to the Care Everywhere program and may not contain all information available regarding this patient. Last updated 17.[facility] Allergies No known active allergies Immunizations Immunization Administration Dates Next Due INFLUENZA VACCINE, QUADR. (F LUZONE; FLULAVAL; FLUARIX; AFLURIA QUADRIVALENT; 6MO+), 0.5 ML (IIV4) 01/05/2018 Social History Tobacco Use Types Packs/Day Years Used Date Smoking Tobacco: Never Assessed Comments Unknown Sex and Gender Information Value Date Recorded Sex Assigned at Not on file Legal Sex Female 6:24 PM INTENSIVE CARE ANAESTHETIST Gender Identity Not on file Sexual Orientation [...] to complete this topic Insurance Care Teams Circuitry Negative Inspector Relationship Specialty Start Date End Date Lang De León MD [address] [place] [address] PCP - General 08/13/17
--- OUTSIDE RECORDS SUMMARY | 2025-02-13 03:01 | XMS_ITS | Encounter Summary ---
Author Organization [facility] Address [address] [place] [address] Care Team Providers Care Claims Collector Name Role Phone Lang De León MD Primary Care Provider [phone] Encounter Details Date Type Department Care Team (Late st Contact Info) Description 12/30/2024 Results Follow-Up [facility] IBD [facility] Gastroenterology Center [place] [facility] [address] [place] [address] [place] [address] [facility] [address] [place] [address] PATHOLOGY Social History Tobacco Use [...] on filedocumented in this encounter Care Teams Claims Collector Relationship Specialty Start Date End Date Lang De León MD [address] [facility] [address] [facility] [address] [place] [address] PCP - General Family Practice 11/28/24 documented as of this encounter
== END 2025-02-13 02:50 | disposition left against medical advice (07) ==
PROVIDERS: PCP Family Medicine
DX: R10.32 Left lower quadrant pain (principal)
CPT/HCPCS: 99199

== ENCOUNTER 2025-02-22 13:54 | Emergency (ER) | payer OTHER, SELFPAY ==
--- OUTSIDE RECORDS SUMMARY | 2014-05-18 23:00 | XMS_ITS | Encounter Summary ---
Author Organization [facility] Healthcare Address [address] [place] [address] Care Team Providers Care Commercial Real Estate Sales Manager Name Role Phone Unavailable Primary Care Provider Unavailabl e Reason for Visit * Diagnostic Imaging (Routine) - Closed Specialty Diagnoses / Procedures Referred By Contac t Referred To Contact Procedures Breast Imaging Screening Outside Reference Transcribed Order, Provider Referral ID Status Reason Start Date Expiration Date Visits Re quested Visits Authorized [id number] Closed 03/20/2023 04/18/2024 1 1 Encounter Details Date Type Department Care Team (Late st Contact Info) Description 05/19/2014 Hospital Encounter [facility] [address] [place] [address] [phone] Social History Tobacco Use Types Packs/Day Years [...] on file 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 There will be no report generated by a [facility] Radiologist. Narrative [facility] - 03/20/2023 10:38 AM PAPER PATTERN INSPECTOR EXAMINATION: Images For Reference Purposes Only us Provider Transcribed Order IMG MAMMO PROCEDURES Final Result [facility] documented in this encounter Visit Diagnoses Not on filedocumented in this encounter
--- OUTSIDE RECORDS SUMMARY | 2015-04-28 | XMS_ITS | Encounter Summary ---
Author Organization [facility] Healthcare Address [address] [place] [address] Care Team Providers Care Food Technologist Name Role Phone Unavailable Primary Care Provider Unavailabl e Reason for Visit * Diagnostic Imaging (Routine) - Closed Specialty Diagnoses / Procedures Referred By Contac t Referred To Contact Procedures Breast Imaging US Outside Reference Transcribed Order, Provider Referral ID Status Reason Start Date Expiration Date Visits Re quested Visits Authorized [id number] Closed 03/20/2023 04/18/2024 1 1 Encounter Details Date Type Department Care Team (Late st Contact Info) Description 04/28/2015 Hospital Encounter [facility] [address] [place] [address] [phone] Social History Tobacco Use Types Packs/Day Years [...] on file Legal Sex Female 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 OPTICIAN MANAGER Gender Identity Not on file Sexual Orientation Not on file documented as of this encounter Plan of Treatment Not on file documented as of this encounter Procedures Procedure Name Priority Date/Time Associated Diagnosis Comments BREAST IMAGING US OUTSIDE REFERENCE Routine 04/28/2015 12:00 AM OPTICIAN MANAGER documented in this encounter Results * Breast Imaging US Outside Reference (04/28/2015 12:00 AM OPTICIAN MANAGER) Impressions [facility] - 03/20/2023 10:37 AM OPTICIAN MANAGER These images are for Reference purposes only and have not been reviewed by [facility] Radiology. There will be no report generated by a [facility] Radiologist. Narrative [facility] - 03/20/2023 10:37 AM OPTICIAN MANAGER EXAMINATION: Images For Reference Purposes Only us Provider Transcribed Order IMG MAMMO PROCEDURES Final Result [facility] documented in this encounter Visit Diagnoses Not on filedocumented in this encounter
--- OUTSIDE RECORDS SUMMARY | 2025-02-22 13:57 | XMS_ITS | Clinical Summary ---
Author Organization [employer] [facility] lin Address [address] [facility] [place] [address] Care Team Providers Care Photographer Still Name Role Phone Unavailable Primary Care Provider [...] - - Pulse 107 03/11/2020 2:56 PM SOCIAL MEDIA PROJECT MANAGER Temperature 36.4 C (97.6 F) 03/11/2020 2:56 PM SOCIAL MEDIA PROJECT MANAGER Respiratory Rate - - Oxygen Saturation 97% 03/11/2020 2:56 PM SOCIAL MEDIA PROJECT MANAGER Inhaled Oxygen Concentration - - Weight - - Height - - Body Mass Index - - Plan of Treatment Not on file Medical Devices Not on file Insurance [employer]
--- OUTSIDE RECORDS SUMMARY | 2025-02-22 13:58 | XMS_ITS | Clinical Summary ---
Author Organization [facility] Address [address] [place] [address] Care Team Providers Care Calker Name Role Phone Lang De León MD Primary Care Provider [phone] Source Comments [facility],non-owned Affiliates and Associated Physician Practices is amultiple site organization consisting of ambulatory clinics and hospital sitesin [place], [place], [place] and [place]. This disclosure is being madepursuant to the Care Everywhere program and may not contain all information available regarding this patient. Last updated 17.[facility] Allergies No known active allergies Immunizations Immunization Administration Dates Next Due INFLUENZA VACCINE, QUADR. (F LUZONE; FLULAVAL; FLUARIX; AFLURIA QUADRIVALENT; 6MO+), 0.5 ML (IIV4) 01/05/2018 Social History Tobacco Use Types Packs/Day Years Used Date Smoking Tobacco: Never Assessed Comments Unknown Sex and Gender Information Value Date Recorded Sex Assigned at Not on file Legal Sex Female 6:24 PM LAND SURVEY TECHNICIAN Gender Identity Not on file Sexual [...] to complete this topic Insurance Care Teams Calker Relationship Specialty Start Date End Date Lang De León MD [address] [place] [address] PCP - General 08/13/17
--- OUTSIDE RECORDS SUMMARY | 2025-02-22 13:58 | XMS_ITS | Clinical Summary ---
Author Organization [facility] Administrative Offices Address [address] [place] [address] Care Team Providers Care Crucible Packer Name Role Phone Lang De León MD Primary Care Provider [phone] Allergies No known active allergies Medications spironolactone [...] Additional Information Patient not taking.Reported on 12/10/2024 HYDROcodone-acetamino phen (NORCO) 5-325 mg tabletIndications:Cap sulitis [...] breakfast. 270 Tablet 3 11/12/19 25 Active Active Problems Problem Noted Date Diagnosed Date Ulcerative colitis 11/22/2023 Constipation 11/22/2023 Encounters Date Type Department Care Team Description 5 External Device Data STL ABSTRACTION Provider, Abstract 5 External Device Data STL ABSTRACTION Provider, Abstract [address] [facility] Gastroenterology [facility] [address] [facility] [address] [place] [address] Doreen Conte MD Needs Appointment (6 mo f/u UC) 5 2:30 PM CDT Video Visit 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 IBD and Gastroenterology [facility] [address] [facility] [address] [place] [address] Doreen Conte MD PATHOLOGY 5 11:40 AM CDT - 5 12:[address] [facility] GI Lab S [facility] [employer] [address] [place] [phone] Doreen Conte MD ESOPHAGOGASTRODUODENOSCOPY 5 11:36 AM CDT Anesthesia Event 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 POC , URINE Routine 12/29/2024 11:00 AM CDT from Last 3 Months Results * COLONOSCOPY REPORT (12/29/2024 12:17 PM CDT) Narrative Procedure Note Doreen Conte MD - 12/29/2024 12:17 PM CDT [facility] Endoscopy Patient Name: Maicol Ozuna Procedure [...] Number of Addenda: [address] ; [place] [address] Doreen Conte MD GI PROCEDURE ORDERABLES F inal Result * UPPER ENDOSCOPY REPORT (12/29/2024 12:14 PM CDT) Narrative Procedure Note Doreen Conte MD - 12/29/2024 12:14 PM CDT [facility] Endoscopy Patient Name: Maicol Ozuna Procedure [...] of Addenda: [address]; [place] [address] Doreen Conte MD GI PROCEDURE ORDERABLES F inal Result * PATHOLOGY (12/29/2024 11:57 AM CDT) CASE REPORT Surgical Pathology R eport Case: [id number] Authorizing Provider: Doreen Conte MD Collected: 12/29/2024 11:57 AM Ordering Location: [facility] GI [facility] [address] Received: 12/29/2024 01:58 PM Pathologist: Amy Mariscal MD Specimens: A) - Duodenum, BXs B) - Stomach, BXs C) - Stomach, polyp D) - Esophagus, distal, BXs E) - Esophagus, proximal, BXs F) - Colon, transverse, polyp G) - Colon, sigmoid, bx H) - Rectum, bx 8:08 AM CDT [facility] [employer] [facility] FINAL DIAGNOSIS Duodenum, biopsy: - No [...] evidence of granulomas or dysplasia. 8:08 AM [facility] [facility] at 0808 CDT GROSS DESCRIPTION The specimens are received in eight containers each labeled Maicol Ozuna. Received in the first container additionally labeled [...] cassette labeled H1. SMB 5 8:08 AM [facility] [employer] [facility] MICROSCOPIC DESCRIPTION The slides are labeled [id number] and Maicol Ozuna. Sections of the duodenal [...] lymphocytic or collagenous colitis. 5 8:08 AM [facility] OPERATIVE PROCEDURE 1: Esophagogastroduodenoscop y 2: Colonoscopy 5 8:08 AM [facility] CLINICAL INFORMATION A Small bowel Bx's. Rule out sprue (chronic diarrhea and/or Iron deficiency anemia. 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 R14.0-Bloating 5 8:08 AM CDT [facility] COMMENT Special stain, immunohistochemical, and/or in situ hybridization results are interpreted with controls that demonstrate appropriate staining reactions. Note on use of immunohistochemistry reagents and in situ hybridization probes: These tests were developed and their performance characteristics determined by [facility], Department of Laboratory Medicine. It has not [...] part or completely in the following laboratories: [facility], CLIA #[id number] [address] [place] [address] [facility], CLIA #[id number] [address] [place] [address] [facility], CLIA #[id number] [address] [place] [address] This report was created with the [employer] voice-activated dictation system. Inherent to this system is the possibility of syntax, grammar, punctuation and other errors that could impact the interpretation of the report. If there are interpretative questions about aspects of this report, please contact the performing pathologist. 8:08 AM CDT [facility] Tissue ENTIRE DUODENUM / Unknown Collection / [...] Conte MD PATHOLOGY/CYTOLOGY ORDERA BLES Final Result Performing Organization Address [facility] Co de Phone Number [facility] CLIA# [id number] [address] [place], [place] [id number] * POC , URINE (12/29/2024 11:00 AM CDT) HCG QUAL URINE Negative Negative 12/29/2024 11:00 AM CDT [facility] Urine 12/29/2024 11:0 0 AM CDT 12/29/2024 11:07 AM CDT Narrative [facility] - 12/29/2024 11:00 AM CDT Positive : Result is greater than or equal to 25 mIU/mL Negative: Result is less than 25 mIU/mL Invalid: Result is borderline or indeterminate,send to lab for serum test methodology. Doreen Conte MD POINT OF CARE TESTING Fin al Result Performing Organization Address [facility]/ZIP Co de Phone Number [facility] CLIA# [id number] [address] [place] [id number] from Last 3 Months Insurance [employer] OPEN ACCESS HMO RX [employer] RX Member Subscriber Plan / Payer (Ef fective 2023-Present) Name:Maicol Ozuna Relation to Subscriber:Self Name:Maicol Ozuna Subscriber ID:Not on file Payer ID:Not on file Type:RX Commercial Address: [place] Advance Directives For more information, please contact: [phone] * Full Code (Latest Code Status on File) Date Activated Date Inactivated Comments 12/29/2024 11:18 AM 12/29/2024 3:12 PM * Full Code Date Activated Date Inactivated Comments 01/15/2024 8:45 AM 01/15/2024 12:09 PM * Full Code Date Activated Date Inactivated Comments 10/18/2023 11:42 AM 10/18/2023 9:10 PM Care Teams Crucible Packer Relationship Specialty Start Date End Date Lang De León MD [address] [address] PCP - General Family Practice 11/28/24
--- OUTSIDE RECORDS SUMMARY | 2025-02-22 13:58 | XMS_ITS | Encounter Summary ---
Author Organization [facility] Address [address] [place] [address] Care Team Providers Care Exchange Operator Name Role Phone Lang De León MD Primary Care Provider Encounter Details Date Type Department Care Team (Late st Contact Info) Description 12/30/2024 Results Follow-Up [facility] Gastro[facility]ology [facility] [address] [facility] [address] [place] [address] [place] [address] [address] [facility] [address] [place] [address] PATHOLOGY Social History Tobacco Use [...] on filedocumented in this encounter Care Teams Exchange Operator Relationship Specialty Start Date End Date Lang De León MD [address] [facility] [address] [facility] [address] [place] [address] PCP - General Family Practice 11/28/24 documented as of this encounter
--- OUTSIDE RECORDS SUMMARY | 2025-02-22 13:58 | XMS_ITS | Clinical Summary ---
Author Organization [facility] Address [address] [place] [address] Care Team Providers Care Hamper Maker Machine Name Role Phone Lang De León MD Primary Care Provider Jessica Coelho NP Unavailable [phone] Kristine Xavier MD Unavailable [phone] Allergies Active Allergy Reactions Criticality Noted Date [...] Department Care Team Description 02/09/2025 9:00 AM SPRAY DYER - 02/09/2025 11:59 PM SPRAY DYER Hospital Encounter [facility] - Breast Imaging [address] [place] [address] Breast pain Discharge Disposition: Discharge to home or self care 02/09/2025 8:45 AM [facility] [address] [place] [address] [address] [place] [address] Shaye Villar, SAROJ Pain of left breast (Primary Dx); Fibroadenoma of breast, left; At high risk for breast cancer; Family history of breast cancer in first degree relative 01/20/2025 Orders Only [facility] [address] [place] [address] [address] [place] [phone] Shaye Villar NP Breast pain (Primary Dx) [...] on file Legal Sex Female 4:50 PM SPRAY DYER Gender Identity Not on file Sexual Orientation Not on file Obstetrics History Para Term AB IAB SAB Ectopic Multiple Livin g Live Births 2 1 Date Outcome GA Total Labor Labor/2nd/3rd Weight Sex Type Anes PTL Ariella A1 A5 Name Clin Last Filed Vital Signs Vital Sign Reading Time Taken Comments Blood Pressure 121/74 02/09/2025 9:00 AM SPRAY DYER Pulse 87 02/09/2025 9:00 AM SPRAY DYER Temperature 36.6 C (97.8 F) 02/09/2025 9:00 AM SPRAY DYER Respiratory Rate 18 02/09/2025 9:00 AM SPRAY DYER Oxygen Saturation 100% 02/09/2025 9:00 AM SPRAY DYER Inhaled Oxygen Concentration - - Weight 61 kg (134 lb 6.4 oz) 02/09/2025 9:00 AM SPRAY DYER Height 166.5 cm (5' 5.55) 02/09/2025 9:00 AM CS T Body Mass Index 21.99 02/09/2025 9:00 AM SPRAY DYER Plan of Treatment Health Maintenance Due Date [...] this topic Medical Devices Implanted Type Area Maintenance Machinist Device Identifier Shelf Expiration Date Model / Serial / Lot [employer] Mri Guided Rigid Deployment Device Cork Marker Breast Trimark Td 13-Mr - [id number] Implanted:Qty: 1 on 05/04/2023 at [facility] [employer] [id number] 04/10/2024 TRIMARK TD 13-MR / / [id number] Bard Peripheral Vascular Ultraclip Bard 17ga 10cm 2 Trigger Permanent Ultrasound [id number] - [id number] Implanted:Qty: 1 on 10/13/2024 by Shavon Llamas MD at [facility] Left: Breast [employer] [id number] / / Procedures Procedure Name Priority Date/Time Associated Diagnosis Comments DIAGNOSTIC MAMMOGRAM BILATERAL W TE Schedule Routine, Read Routine (OP Routine) 02/09/2025 9:56 AM SPRAY DYER Breast pain from Last 3 Months Results * Diagnostic Mammogram Bilateral W Te (02/09/2025 9:56 AM SPRAY DYER) Anatomical Region Laterality Modality Breast Bilateral Mammography 02/09/2025 10:0 4 AM SPRAY DYER Impressions 02/09/2025 10:07 AM SPRAY DYER No mass, calcification, or architectural distortion to [...] Lanie Solorzano M.D. Narrative 02/09/2025 10:07 AM SPRAY DYER EXAMINATION: BILATERAL DIGITAL DIAGNOSTIC MAMMOGRAM INCLUDING CAD [...] for over a year. Shaye Gelacio Moniqueda IT SYSTEMS ADMINISTRATOR IMG MAMMO PROCEDURES Fi nal Result from Last 3 Months Insurance CIGNA CIGNA Care Teams Hamper Maker Machine Relationship Specialty Start Date End Date Lang De León MD [address] [place] [address] PCP - General Family Medicine 03/08/23 Jessica Coelho NP [address] [place] [address] Nurse Practitioner Nurse Practitioner 04/18/23 Kristine Xavier MD [facility] [place] [address] Referring Physician Gynecology 05/24/23
[2025-02-22 14:07] VITALS: BP 97/66; PULSE 62; RESP 18; TEMP 36.2; O2SAT 100
--- NOTE | 2025-02-22 14:27 | ED.NAVMDI ---
HPI - Nausea/Vomiting/Diarrhea General Chief complaint: Nausea/Vomiting/Diarrhea Stated complaint: n/v/d patient presents to the [facility] Care accompanied by spouse with complaints of significant wave-like abdominal pain in lower abdomen and lower back that began today after shower. Patient also noted significant nausea and episode of vomiting. patient noted several loose stools the last stool having some mucus in this. Patient does report a history of ulcerative colitis. Spoken with primary care GI today. Noted she did take her as needed medication for her ulcerative colitis and this time pain is better but is very nervous since this is the 3rd time having this significant pain. Denies fever, chills, body aches, urinary symptoms, or blood in stool Related Data Home Medications ?Medication ?Instructions ?Recorded ?Confirmed ?Last Taken ?Type duloxetine 60 mg capsule,delayed 60 mg PO DAILY 01/09/19 11/27/24 10/08/19 History release (Cymbalta) hyoscyamine sulfate 0.125 mg 0.125 mg sublingual QID abdominal 04/11/23 11/27/24 Unknown History sublingual tablet pain omeprazole 40 mg capsule,delayed 40 mg PO DAILY 11/27/24 11/27/24 Unknown History release spironolactone 100 mg tablet 100 mg PO DAILY 11/27/24 11/27/24 Unknown History Allergies Allergy/AdvReac Type Severity Reaction Status Date / Time hydrocodone AdvReac Mild ITCHY Verified 02/22/25 14:07 Review of Systems Constitutional: Constitutional: Reports as per HPI, Denies chills, Denies fatigue, Denies fever(s) and Denies weakness Eyes: Eyes: Reports no additional eye complaints ENT: Reports system reviewed and no additional complaints, except as documented Cardiovascular: Cardiovascular: Reports no additional cardiovascular complaints Respiratory: Respiratory: Reports no additional respiratory complaints Gastrointestinal: Gastrointestinal: Reports as per HPI, Reports abdominal pain, Reports bloating, Denies constipation, Denies heartburn, Reports diarrhea, Reports nausea and Reports vomiting Genitourinary: Genitourinary: Reports no additional female genitourinary complaints, Denies urinary incontinence and Denies vaginal discharge Musculoskeletal: Musculoskeletal: Reports as per HPI, Reports back pain and Reports muscle cramps Integumentary/Breasts: Skin/Breast: Reports as per HPI, Denies pruritus, Denies erythema, Denies rash and Denies skin ulcer Neurologic: Reports as per HPI, Denies vertigo, Denies dizziness, Denies focal weakness and Denies weakness Psychiatric: Psychiatric: Reports no additional psychiatric complaints Endocrine: Endocrine: Reports no additional endocrine complaints Hematologic/Lymphatic: Hematologic/Lymphatic: Reports no additional hematologic/lymphatic complaints Allergic/Immunologic: Allergic/Immunologic: Reports no additional allergic/immunologic complaints [facility] Past Medical History Medical History Left sided colitis Bloating History of miscarriage Hypoglycemia ADRIA (generalized anxiety disorder) Irritable bowel syndrome with both constipation and diarrhea MDD (major depressive disorder), recurrent, in partial remission Family History Family History Sibling Depression Mother Family history of malignant neoplasm of breast in first degree relative Father Family history of malignant melanoma Other Carcinoma of colon Cerebrovascular accident Social History Social History Smoking status: Never smoker Second hand tobacco smoke exposure: No Alcohol intake: never Substance use: never Substance use type: does not use Lack of Transportation: No Lack of Food: Never True Current Housing: I Have Housing Concerned About Future Housing: No Difficulty Paying Gas/Electric Bills: No Difficulty Paying for Meds: No Currently Unemployed: No Education: Associate Degree Difficulty w/ Childcare or Family Care: No Living arrangements: with family Occupation/Education: occupation Gender identity (if verbalized by the patient): Female Exam Const: General: healthy appearing and no acute distress Nutritional Appearance: well nourished Orientation/consciousness: patient oriented x3 Limitations: no limitations Resp: Effort & Inspection: normal respiratory effort Auscultation: clear to auscultation bilaterally Cardio: Rate: regular rate Rhythm: regular rhythm GI: Inspection: non-distended GI Palp: Yes Soft to palpation, Yes Tenderness to palpation present (GI) (RLQ, suprapubic., LLQ), Yes Guarding due to palpation present (GI) (RLQ, suprapubic., LLQ), No Rigid due to palpation, No Hernia present and No Rebound tenderness present Auscultation: normal bowel sounds : General: Yes bladder normal to palpation and Yes no CVA tenderness Skin: General skin exam: normal color Rashes: no rashes Wounds: no wounds Neuro: General: patient oriented x3 Speech: normal speech Gait exam (Neuro): Normal gait present Extrem: General: normal to inspection and no clubbing, cyanosis or edema Psych: Mental Status: mental status grossly normal Affect: normal affect Attitude: cooperative Course Course Level of Care: Express Care Visit Vital Signs Vital signs: Vital Signs Temperature 97.1 F L 02/22/25 14:07 Pulse Rate 62 02/22/25 14:07 Respiratory Rate 18 02/22/25 14:07 Blood Pressure 97/66 L 02/22/25 14:07 Pulse Oximetry 100 02/22/25 14:07 Oxygen Delivery Room Air 02/22/25 14:07 Temperature 97.1 F L 02/22/25 14:07 Pulse Rate 62 02/22/25 14:07 Respiratory Rate 18 02/22/25 14:07 Blood Pressure 97/66 L 02/22/25 14:07 Pulse Oximetry 100 02/22/25 14:07 Oxygen Delivery Room Air 02/22/25 14:07 MDM MDM Narrative Medical decision making narrative: Spoke with patient overall symptoms given the severity of her medical history would recommend follow-up with emergency room having a CT scan. The patient has recently messaged her GI physician patient would like to go to [facility] in [place]. report called to [facility] for Dr. Hodge. Differential Diagnosis Differential Diagnosis: abdominal pain, perforation, ulcerative colitis flare up, diverticulitis Medical Records I have reviewed the following patient records and this information was taken into consideration when formulating the assessment and plan.: previous labs, previous ER visits, previous hospitalizations and previous clinic visits Discharge Plan Discharge Clinical Impression: Abdominal pain Patient Disposition: Acute Care Hospital Condition: Guarded Prognosis Instructions: Abdominal Pain (ED) Additional Instructions: GO TO THE EMERGENCY ROOM FOR EVALUATION. DO NOT EAT OR DRINK ANYTHING Patient Language: Vietnamese Prescriptions: No Action hyoscyamine sulfate 0.125 mg tablet, sublingual 0.125 mg sublingual QID spironolactone 100 mg tablet 100 mg PO DAILY omeprazole 40 mg capsule,delayed release(DR/EC) 40 mg PO DAILY duloxetine [Cymbalta] 60 mg capsule,delayed release(DR/EC) 60 mg PO DAILY mesalamine 1.2 gram tablet,delayed release (DR/EC) See Rx Instructions .ROUTE .COMPLEX Qty: 90 11RF Dose Instruction: TAKE 3 TABLETS BY MOUTH DAILY Rx Instructions: TAKE 3 TABLETS BY MOUTH DAILY Follow-up/Referrals: Lang De León MD [Primary Care Provider, [facility]] Time of Disposition: 14:32
== END 2025-02-22 14:27 | disposition short-term general hospital (02) ==
PROVIDERS: Emergency Provider Nurse Practitioner Family; PCP Family Medicine
DX: R10.31 Right lower quadrant pain (principal); R10.32 Left lower quadrant pain; R10.24 Suprapubic pain
CPT/HCPCS: 99212; G0463